=== PATIENT | male | born 1955 | race Caucasian/White ===

== ENCOUNTER → 2019-08-17 13:51 | Outpatient (CLI) | payer OTHER, SELFPAY ==
[2017-02-11 19:06] VITALS: BMI 26.5
[2019-08-18 07:26] LABS: SARS-COV-2 TOTAL ABS Nonreactive (Nonreactive)
== END ==
PROVIDERS: PCP Family Medicine; Referring Provider Otolaryngology; Visit Provider Otolaryngology
DX: R05 Cough (principal)
CPT/HCPCS: 86769; G2023

== ENCOUNTER 2021-09-27 17:19 | Emergency (ER) | payer MEDICARE, SELFPAY ==
[2021-09-27 17:19] VITALS: BP 147/100; PULSE 71; RESP 16; TEMP 36.6; O2SAT 96; BMI 30.8
[2021-09-27 19:39] VITALS: BP 173/103; PULSE 67; RESP 16; O2SAT 99
--- NOTE | 2021-09-27 20:45 | EKG12_ITS ---
Test Reason : DYSRHYTHMIA Blood Pressure : / mmHG Vent. Rate : 056 BPM Atrial Rate : 056 BPM P-R Int : 188 ms QRS Dur : 156 ms QT Int : 478 ms P-R-T Axes : 049 -21 064 degrees QTc Int : 461 ms Sinus bradycardia Left bundle branch block Abnormal ECG Confirmed by FELIX HERNANDEZ, ROSAURA ([id number]), publications editor VANESSA SOUZA ([id number]) on 10/01/2021 7:49:36 AM Referred By: DIO Confirmed By:ROSAURA WASHINGTON MD
[2021-09-27 21:02] VITALS: RESP 16
[2021-09-27 21:04] LABS: Absolute Lymphocyte Count 1.36 X10^3/uL (0.83-4.51); Absolute Neutrophil Count 4.4 X10^3/uL (2.0-7.7); Basophil# 0.08 X10^3/uL; Basophil% 1.3 % (0-1); Eosinophil# 0.04 X10^3/uL; Eosinophils% 0.6 % (0-5); Hematocrit 44.3 % (40-54); Hemoglobin 15.1 g/dL (13.0-16.5); Lymphocyte # 1.36 X10^3/ul (0.83-4.51); Lymphocyte % 21.6 % (19-41); Mean Corp Hgb Conc 34.1 g/dL (32-36); Mean Corpuscular Hgb 31.2 pg (27.0-32.0); Mean Corpuscular Volume 91.5 fL (80-94); Mean Platelet Vol. 8.7 fl (6.2-12.0); Monocyte# 0.39 X10^3/uL; Monocyte% 6.2 % (0-10); NRBC Flagged by Analyzer 0 % (0-5); Neutrophil # 4.39 X10^3/uL (2.7-7.7); Neutrophil % 69.8 % (47-70); Platelet Count 204 K/mm3 (150-450); RBC Distribution Width CV 12.6 % (11.6-14.6); RBC Distribution Width SD 42.6 fl (35.1-43.9); Red Blood Count 4.84 M/mm3 (4.6-6.2); White Blood Count 6.3 K/mm3 (4.4-11.0)
[2021-09-27] MEDS: 0.9% Normal Saline 1,000 ML 1000 ML IV (21:07)
[2021-09-27 21:09] LABS: Mucous, Urine 0 SEEN /hpf (<or=2+); Red Blood Cells-Urine 0 SEEN /hpf (0-5); Squamous Epithelial Cells - UA 0 SEEN /hpf (0-5); White Blood Cells 0 SEEN /hpf (0-5)
[2021-09-27 21:21] LABS: ALB/GLOB Ratio 1.1 RATIO (0.9-2.4); AST(SGOT) 22 U/L (15-37); Alanine Aminotransfer ALT/SGPT 32 U/L (16-61); Alkaline Phosphatase 56 U/L (45-117); Anion Gap 7 (5-15); BUN 12 mg/dL (7-18); BUN/Creat Ratio 13.5 RATIO (10-20); Calcium,Total 9.2 mg/dL (8.5-10.1); Chloride 110 mmol/L (98-107); Creatinine, Serum 0.89 mg/dL (0.70-1.30); EST Glomerular Filtration Rate 91 mL/min (>60); Est Glom Filt Rate - Afr Amer 110 mL/min (>60); Globulin 3.8 g/dL (2.2-4.2); Glucose 110 mg/dL (74-106); Lipase 96 U/L (73-393); Potassium 4.1 mmol/L (3.5-5.1); Protein, Total 7.8 g/dL (6.4-8.2); Sodium Level 140 mmol/L (136-145)
--- NOTE | 2021-09-27 21:25 | RAD_ITS ---
EXAM: XR CHEST, 2 VIEWS CLINICAL INDICATION: cough TECHNIQUE: Frontal and lateral views of the chest. This report was created using [employer] report generation technology. COMPARISON: None. FINDINGS: LUNGS AND PLEURAL SPACES: Unremarkable. No consolidation or edema. No pneumothorax. No effusion. HEART: Unremarkable. Cardiac silhouette not enlarged. MEDIASTINUM: Central airways and mediastinal contour are unremarkable. BONES/JOINTS: Degenerative changes of the acromioclavicular joints. SOFT TISSUES: Unremarkable. VASCULATURE: Atherosclerotic calcifications of the nonenlarged thoracic aortic arch. RAD/Chest PA and Lateral IMPRESSION: No acute disease. Electronically Signed: Gabino Durant MD at 21:38 EDT ,
[2021-09-27 21:27] LABS: Color, Urine Yellow (Yellow); Glucose, Dipstick Normal (Normal); Ketone-Dipstick 15 mg/dl (Negative); Leukocyte Esterase-Dipstick Negative /ul (Negative); Nitrite-Dipstick Negative (Negative); Occult Blood-Urine Negative /ul (Negative); Protein-Dipstick Negative (Negative); Urine Bilirubin Dipstick Negative (Negative); Urine Clarity Clear (Clear); Urine Urobilinogen Normal (Normal)
[2021-09-27 21:35] LABS: Troponin-I HS 5 pg/mL (3.0-78.0)
[2021-09-27 21:53] LABS: Bacteria RARE /hpf (None Seen)
--- NOTE | 2021-09-28 00:15 | ED.RN ---
This RN notified by CT that patient refused CT scan unless he can get his results instantly because I need to get home to eat right now.
[2021-09-28] MEDS: Mag Hydrox/Al Hydrox/Simeth 30 ML UDC PO (00:20)
[2021-09-28 00:31] VITALS: BP 147/100; PULSE 71; RESP 16; O2SAT 96
--- NOTE | 2021-09-28 00:32 | EDS_ITS ---
HPI History of Present Illness Chief Complaint: General Illness Informant: patient Narrative Narrative: Patient is a 65-year-old male with history of acid reflux presenting with abdominal pain. Patient initially developed some flulike symptoms a week ago, felt better and then a couple days ago his symptoms returned. He has been having pain localized just to the right of his umbilicus. He notes it is worse after eating. Pain is more of a discomfort and aching in nature. Is been persistent. He denies associated nausea, vomiting, change in bowel movements or fever. Denies any urinary symptoms. Notes that when he was a teenager he was diagnosed with colonic spasms but states that felt different. Denies associated chest pain, shortness of breath or difficulty breathing. No other complaints at this time. PFSH PFSH Home Medications omeprazole 20 mg capsule,delayed release 20 mg PO DAILY 10/11/13 [History Last Taken Unknown] prednisone 10 mg tablet 5 mg PO DAILY 10/11/13 [History Last Taken Unknown] terazosin 5 mg capsule 5 mg PO QHS 10/11/13 [History Last Taken Unknown] etodolac 300 mg capsule 300 mg PO TIDCM PRN Pain ##30 10/12/13 [Rx Last Taken Unknown] hydrocodone-acetaminophen 5-325mg 5mg-325mg 1 ea PO Q4H PRN PRN Pain #20 tabs 02/11/17 [Rx Last Taken Unknown] Allergy/AdvReac Type Severity Reaction Status Date / Time sulfamethoxazole Allergy Other Verified 09/27/21 17:21 [From Bactrim] trimethoprim [From Bactrim] Allergy Other Verified 09/27/21 17:21 Social History Smoking Status: Former smoker ROS ROS ED Constitutional Constitutional ED: Denies chills or fever(s) Eyes Eyes: Denies blurry vision ENT ENT ED: Denies rhinorrhea or sore throat Cardiovascular Cardiovascular: Denies chest pain or palpitations Respiratory/Chest Respiratory/Chest: Denies cough or dyspnea Gastrointestinal Gastrointestinal: Reports abdominal pain and diarrhea; Denies constipation, nausea or vomiting Genitourinary Genitourinary ED: Denies dysuria or hematuria Musculoskeletal Musculoskeletal: Denies arthralgias or back pain Integumentary Denies rash Neurologic Neurologic: Denies headache(s) Psychiatric Psychiatric: Denies anxiety EXAM Physical Exam Const Vital Signs: 09/27/21 17:19 09/27/21 19:39 09/27/21 19:39 Temperature 97.8 F Temperature Source Temporal Pulse Rate 71 67 Respiratory Rate 16 16 Respiratory Effort Normal Respiratory Pattern Normal Blood Pressure 147/100 H 173/103 H Blood Pressure Mean 115 126 Pulse Ox 96 99 Oxygen Delivery Method Room Air Room Air 09/27/21 21:02 09/28/21 00:31 Temperature Temperature Source Pulse Rate 71 Respiratory Rate 16 16 Respiratory Effort Respiratory Pattern Blood Pressure 147/100 H Blood Pressure Mean Pulse Ox 96 Oxygen Delivery Method Positive well nourished and well developed General Appearance ED: well developed and NAD HEENT Reports dry mucous membranes Mouth ED: Yes dry mucous membranes Mouth: dry mucous membranes Neck supple and no JVD Chest Wall inspection of chest normal and palpation of chest normal Resp normal respiratory effort and clear to auscultation bilaterally Cardio regular rate, regular rhythm and no murmurs GI normal to inspection, nondistended, normoactive bowel sounds and non-tender GI Narrative: Patient points to well-circumscribed 3 cm area just to the right of his umbilicus as the area of his pain however its not reproducible with direct palpation. Palpation: Negative for guarding Back/Spine no CVA tenderness Extremity normal to inspection General Extremety ED: Negative for edema General Extremity: Negative for edema Neuro oriented x3 Motor Exam: Negative for general weakness Psych mental status grossly normal Skin no rashes or lesions noted and no wounds MDM MDM MDM Narrative Medical decision making narrative: Patient evaluated for 1 week of intermittent right-sided abdominal pain as well as some flulike symptoms. Patient appears nontoxic and in no acute distress. Vital signs are significant only for some mild hypertension. COVID test is negative. Patient denies any associated chest pain, shortness of breath or difficulty breathing. Have a low suspicion for referred ACS pain however EKG is obtained. EKG does show sinus bradycardia with a left bundle branch block. Fadi alvarez has progression from nonspecific intraventricular conduction delay with a left axis deviation to a left bundle branch block however he does not have any chest pain and his high since he troponin is normal. Do not think this associated with why he is presenting today. His lab work otherwise is largely normal. CBC and CMP largely unremarkable. Lipase is normal. Urinalysis does show 15 ketones consistent with some dehydration and patient's report of not eating today. Patient is given IV fluids and then a GI cocktail. I did discuss that given his localized area of pain we could get a CT of his abdomen and pelvis to further evaluate for an area of diverticulitis or other acute intra- abdominal process. Patient initially agreed however due to wait time decided then that he would like to just go home. We will follow-up with primary care doctor and return if his symptoms worsen. Patient is counseled return precautions. He verbalizes agreement understand with this plan. He ambulates easily out of the emergency room. Lab Data Attestation: I reviewed the patient's lab results. Labs: Laboratory Results - last 24 hr 09/27/21 09/27/21 09/27/21 20:59 20:59 20:59 WBC 6.3 RBC 4.84 Hgb 15.1 Hct 44.3 MCV 91.5 MCH 31.2 MCHC 34.1 RDW Std Deviation 42.6 RDW Coeff of Pancho 12.6 Plt Count 204 MPV 8.7 Immature Gran % (Auto) 0.500 Neut % (Auto) 69.8 Lymph % (Auto) 21.6 [place] % (Auto) 6.2 Eos % (Auto) 0.6 Baso % (Auto) 1.3 H Absolute Neuts (auto) 4.4 Absolute Lymphs (auto) 1.36 Nucleated RBC % 0 Sodium 140 Potassium 4.1 Chloride 110 H Carbon Dioxide 23.0 Anion Gap 7 BUN 12 Creatinine 0.89 Estim Creat Clear Calc 84.30 Est GFR (MDRD) Af Amer 110 Est GFR (MDRD) Non-Af 91 BUN/Creatinine Ratio 13.5 Glucose 110 H Calcium 9.2 Total Bilirubin 0.60 AST 22 ALT 32 Alkaline Phosphatase 56 Troponin I High Sens 5 Total Protein 7.8 Albumin 4.0 Globulin 3.8 Albumin/Globulin Ratio 1.1 Lipase 96 Urine Color Urine Clarity Urine pH Ur Specific [place] Urine Protein Urine Glucose (UA) Urine Ketones Urine Occult Blood Urine Nitrite Urine Bilirubin Urine Urobilinogen Ur Leukocyte Esterase Urine RBC Urine WBC Ur Squamous Epith Cells Urine Bacteria Urine Mucus 09/27/21 21:01 WBC RBC Hgb Hct MCV MCH MCHC RDW Std Deviation RDW Coeff of [place]anch[place] Plt Count MPV Immature Gran % (Auto) Neut % (Auto) Lymph % (Auto) [place] % (Auto) Eos % (Auto) Baso % (Auto) Absolute Neuts (auto) Absolute Lymphs (auto) Nucleated RBC % Sodium Potassium Chloride Carbon Dioxide Anion Gap BUN Creatinine Estim Creat Clear Calc Est GFR (MDRD) Af Amer Est GFR (MDRD) Non-Af BUN/Creatinine Ratio Glucose Calcium Total Bilirubin AST ALT Alkaline Phosphatase Troponin I High Sens Total Protein Albumin Globulin Albumin/Globulin Ratio Lipase Urine Color Yellow Urine Clarity Clear Urine pH 6.0 Ur Specific [place] 1.010 Urine Protein Negative Urine Glucose (UA) Normal Urine Ketones 15 H Urine Occult Blood Negative Urine Nitrite Negative Urine Bilirubin Negative Urine Urobilinogen Normal Ur Leukocyte Esterase Negative Urine RBC 0 SEEN Urine WBC 0 SEEN Ur Squamous Epith Cells 0 SEEN Urine Bacteria RARE Urine Mucus 0 SEEN Rhythm Strip Rhythm Strip: Sinus Rhythm Rate: 71 Ectopy: None EKG Initial EKG: Attestation: I personally reviewed and interpreted this EKG as follows: Interpretation: Sinus Bradycardia, LBBB and Non-Specific ST Changes Discharge Plan Triage Chief Complaint: General Illness ED Provider: Linda Edwards Dx/Rx/DC Orders Clinical Impression: Abdominal pain in male, Flu-like symptoms, Acute dehydration Instructions: ED Abdominal Pain Unkn Cause Male... Prescriptions: No Action terazosin 5 MG capsule 5 mg PO QHS prednisone 10 MG tablet 5 mg PO DAILY Label Comments: omeprazole 20 MG Capsule.Dr 20 mg PO DAILY Label Comments: etodolac 300 MG capsule 300 mg PO TIDCM PRN (Reason: Pain) Qty: 30 0RF hydrocodone-acetaminophen 1 EACH tablet 1 ea PO Q4H PRN PRN (Reason: Pain) Qty: 20 0RF Rx Instructions: Primary Care Provider: Lamberto Marcano Referrals: Lamberto Marcano MD [Primary Care Provider] - Disposition Disposition: Home, Self Care Discharge Date/Time: 09/28/21 00:40
== END 2021-09-28 00:40 | disposition home or self-care (01) ==
PROVIDERS: Emergency Provider Emergency Medicine; PCP Family Medicine; Visit Provider Emergency Medicine
DX: R10.9 Unspecified abdominal pain (principal); E86.0 Dehydration; I10 Essential (primary) hypertension; K21.9 Gastro-esophageal reflux disease without esophagitis; Z79.899 Other long term (current) drug therapy; Z87.891 Personal history of nicotine dependence
CPT/HCPCS: 71046; 80053; 81001; 83690; 84484; 85025; 87428; 93005; 96360; 96361; 99283; J7030; A4216

== ENCOUNTER → 2022-03-27 | Outpatient (CLI) | payer MEDICARE, SELFPAY ==
[2022-03-27 15:29] LABS: Lipase 103 U/L (73-393)
== END | disposition home or self-care (01) ==
PROVIDERS: PCP Family Medicine; Referring Provider Physician Assistant; Visit Provider Physician Assistant
DX: R10.9 Unspecified abdominal pain (principal)
CPT/HCPCS: 83690

== ENCOUNTER 2024-07-16 19:30 | Emergency (ER) | payer MEDICARE, SELFPAY ==
[2024-07-16 19:31] VITALS: BP 170/96; PULSE 93; RESP 22; TEMP 36.3; O2SAT 96; BMI 37.3
--- NOTE | 2024-07-16 19:40 | EX.ED.DYSGE1 ---
HPI History of Present Illness Chief Complaint: Med Refill PFSH PFS Home Medications ?Medication ?Instructions ?Recorded ?Last Taken ?Type omeprazole 20 mg capsule,delayed 20 mg PO DAILY 10/11/13 Unknown History release prednisone 10 mg tablet 5 mg PO DAILY 10/11/13 Unknown History terazosin 5 mg capsule 5 mg PO QHS 10/11/13 Unknown History etodolac 300 mg capsule 300 mg PO TIDCM PRN Pain ##30 10/12/13 Unknown Rx hydrocodone-acetaminophen 5-325mg 1 ea PO Q4H PRN PRN Pain #20 tabs 02/11/17 Unknown Rx 5mg-325mg prednisone 10 mg tablet 10 mg PO DAILY 30 days #30 TABLETS 07/16/24 Unknown Rx Allergy/AdvReac Type Severity Reaction Status Date / Time sulfamethoxazole (From Allergy Other Verified 07/16/24 19:31 Bactrim) trimethoprim (From Bactrim) Allergy Other Verified 07/16/24 19:31 Social History Smoking Status: Former smoker EXAM Physical Exam Const Vital Signs: 07/16/24 19:31 Temperature 97.4 F L Temperature Source Temporal Pulse Rate 93 Respiratory Rate 22 H Blood Pressure 170/96 H Blood Pressure Mean 120 Pulse Ox 96 Oxygen Delivery Method [place] [facility] [place] Medical decision making narrative: HISTORY OF PRESENT ILLNESS: Chief complaint: Med refill [id number]-year-old male presents with concern for med refill. States he is on 5 mg prednisone daily and he ran out today REVIEW OF SYSTEMS: Review of system otherwise negative as explicitly stated in HPI PHYSICAL EXAM: Nursing triage notes reviewed, Vital signs reviewed Constitutional: please see mdm Lungs: Clear to auscultation, No wheezing or rales. No increased work of breathing, no conversational dyspnea, no accessory muscle use, no nasal flaring. No respiratory distress noted Heart: Regular rate and rhythm, No murmurs, No rubs and No gallops, 2+ distal pulses (radial, femoral, posterior tibial) in all extremities Abdomen: Soft, there is no tenderness, rigidity, rebound or guarding, no obvious peritoneal signs, no palpable pulsatile abdominal masses, no auscultated abdominal brui Neuro: No new focal neurological deficits, cranial nerves II through XII intact, MEDICAL DECISION MAKING: Chief Complaint: please see HPI External records reviewed: Reviewed prior medications Factors affecting care: arthritis MDM Narrative: Patient was initially hemodynamically stable, afebrile and nontoxic-appearing. Prednisone given here and refill provided. The patient and/or family, caregivers express understanding. The patient and/or family, caregivers agrees with the plan. Shared decision making: I will have a discussion with the patient and or visitors regarding risk/benefits of further testing or admission. They will be made aware of of the risk/benefits inherent in this decision they will be given the opportunity to voice understanding. Total critical care time today provided was at least 0 minutes. This excludes separately billable procedures. Critical care time (if documented) is secondary to the patient having high probability of clinically significant/life threatening deterioration in the patient's condition which required my urgent intervention. Impression: 1. Medication refill Dispo: discharge This note was generated with [employer] dictation software. It may contain incorrect words, spelling, and punctuation that were not noted in review of the chart prior to signing. Discharge Plan Triage Chief Complaint: Med Refill ED Provider: Hima Mosher Dx/Rx/DC Orders Prescriptions: New prednisone 10 mg tablet 10 mg PO DAILY 30 Days Qty: 30 3RF No Action terazosin 5 MG capsule 5 mg PO QHS prednisone 10 MG tablet 5 mg PO DAILY Patient Comments: omeprazole 20 MG capsule,delayed release(DR/EC) 20 mg PO DAILY Patient Comments: etodolac 300 MG capsule 300 mg PO TIDCM PRN (Reason: Pain) Qty: 30 0RF hydrocodone-acetaminophen 1 EACH tablet 1 ea PO Q4H PRN PRN (Reason: Pain) Qty: 20 0RF Rx Instructions: Primary Care Provider: Lamberto Marcano Referrals: Lamberto Marcano MD [Primary Care Provider] - Activity Restrictions/Additional Instructions: Thank you for trusting us with your care today! Please take prednisone as prescribed Please take Tylenol (2 pills, 650 mg), ibuprofen (2 pills, 400 mg) every 6 hours as needed for pain and fever control. Please return to the emergency department if your symptoms change or worsen. Please follow with your primary care physician for further outpatient evaluation and management. Print Language: Thai Disposition Disposition: Home, Self Care
--- OUTSIDE RECORDS SUMMARY | 2024-07-16 19:57 | XMS RPT_ITS | CCD ---
Author Organization [facility] Care Team Providers Care Dowel Maker Name Role Phone Adelita Marcano MD Primary Care Provider Torey LABEL SEWER, Colleen Referring Unavailable Adelita Marcano Primary Care Unavailable Torey LABEL SEWER, Colleen Attending Unavailable Adelita Marcano Primary Care Unavailable Linda Edwards Attending Unavailable Adelita Marcano MD Primary Care Provider Adelita Marcano MD Primary Care Provider Tannhof SUPERVISOR DIE CASTING.Laurie BARRAZA Unavailable Emanuel SUPERVISOR DIE CASTING.Tristen BARRAZA Unavailable Tannhof SUPERVISOR DIE CASTING.Laurie BARRAZA Unavailable Unavail able LAURIE ESTEVES Attending Unavailable ADELITA MARCANO Primary Care Unavailable ADELITA MARCANO Attending Unavailable ADELITA MARCANO Primary Care Unavailable ADELITA MARCANO Primary Care Unavailable LAURIE ESTEVES Attending Unavailable ADELITA MARCANO Primary Care Unavailable LAURIE ESTEVES Referring Unavailable ADELITA MARCANO Primary Care Unavailable CINDY LLOYD Attending Unavailable ADELITA MARCANO Primary Care Unavailable Allergies Allergy Classification Reported Allergen(s) Allergy Type Date of Onset Reaction(s) Facility (20 sources) meloxicam; Translations: [MELOXICAM] Drug Allergy 8 Other: See Comments [facility] (20 sources) Sulfamethoxazole; Translations: [SULFAMETHOXAZOLE] Drug Allergy 4 Other: See Comments [facility] Work Phone: (20 sources) Trimethoprim; Translations: [TRIMETHOPRIM] Drug Allergy 2 Other: See Comments [facility] (20 sources) Niacin; Translations: [NIACIN] Drug Allergy 3 Intolerance [facility] (1 source) Sulfamethoxazole Drug Allergy 2 [facility] (1 source) Trimethoprim Drug Allergy 2 [facility] Medications Current Medications Medication Drug Class(es) Dates Sig (Normalized) Sig (Original) acetaminophen 325 mg / HYDROcodone bitartrate 5 mg oral tablet (2 sources) Opioid Agonist Start: 02-11-2017 Hydrocodone-Acetam inophen Active 1 EACH PO EVERY 4 HOURS NEEDED February 11, 2017 9:16pm ascorbic acid 1000 mg oral tablet (20 sources) Vitamin C Start: 04-07-2016 take 1 tablet by mouth once daily Ascorbic Acid (VITAMIN C) 1,000 mg tablet Take 1 tablet by mouth once daily. 0 04/07/2016 Active Comment on above: Take 1 tablet by alaina th once daily. atorvastatin 20 mg oral tablet (20 sources) HMG-CoA Reductase Inhibitor Start: 01-26-2023 End: 02-18-2024 take 1 tablet by mouth once daily at bedtime for hyperlipidemia atorvastatin (LIPITOR) 20 mg tablet Indications: Hyperlipidemia, mixed take 1 tablet by mouth once daily at bedtime for cholesterol 90 tablet 3 02/19/2024 Active Start: 02-07-2021 End: 02-14-2022 take 1 tablet by mouth once daily at bedtime for hyperlipidemia atorvastatin (LIPITOR) 20 mg tablet Indications: Hyperlipidemia, mixed take 1 tablet by mouth once daily at bedtime for cholesterol 30 tablet 5 02/14/2022 Active Comment on above: Take 1 tablet by alaina th daily at bedtime. For cholesterol. take 1 tablet by alaina th once daily at bedtime for cholesterol Zwwbuyz-Tmtxdwfno-Qvr c tab (20 sources) Start: 04-07-19 17 Calcium-Magnesium- Zinc tab Calcium 1200 mg once daily. Magnesium 500 mg once daily Zinc - 50 mg once daily. 0 04/07/2016 Active Comment on above: Calcium 1200 mg once daily. Magnesium 500 mg once daily Zinc - 50 mg once daily. dicyclomine hydrochloride 20 mg oral tablet (2 sources) Anticholinergic Start: 03-27-19 End: 04-03-19 take 1 tablet by mouth every six hours as needed dicyclomine (BENTYL) 20 mg tablet Take 1 tablet by mouth four times daily as needed for up to 7 days. 20 tablet 0 03/27/2022 04/03/2022 Active Comment on above: Take 1 tablet by [facility] four times daily as needed for up to 7 days. etodolac 300 mg oral capsule (2 sources) Nonsteroidal Anti-inflammatory Drug Start: 10-13-19 take 300 mg by mouth three times daily at mealtime Etodolac Active 300 MG PO 3 TIMES DAILY WITH MEALS October 11, 2013 11:00pm omeprazole 40 mg delayed release oral capsule (20 sources) Proton Pump Inhibitor Start: 01-27-20 End: 02-17-19 take 1 capsule by mouth once daily omeprazole (PRILOSEC) 40 mg capsule Indications: Right sided abdominal pain Take 1 capsule by mouth once daily. 90 capsule 3 02/19/2024 Active Start: 10-07-2021 End: 02-24-2022 take 1 capsule by mouth once daily omeprazole (PRILOSEC) 40 mg capsule Indications: Right sided abdominal pain Take 1 capsule by mouth once daily. 90 capsule 3 02/24/2022 Active Start: 10-11-2013 End: 04-29-2021 take 1 capsule by mouth once daily before mealtime omeprazole (PRILOSEC) 20 mg capsule Indications: Gastroesophageal reflux disease without esophagitis Take 1 capsule by mouth once daily. 1/2 HR BEFORE MEAL. 30 capsule 11 03/25/2019 04/30/2020 Discontinued Comment on above: take 1 capsule by [facility] once daily 1/2 AN HOUR BEFORE MEAL Take 1 capsule by [facility] once daily. 1/2 HR BEFORE MEAL. Take 1 capsule by [facility] once daily. 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 60 tablet 11 12/27/2020 Active Start: 10-11-2013 take 5 mg by mouth once daily Prednisone Active 5 MG PO DAILY October 10, 2013 11:00pm Comment on above: Take 1-2 tablets by mouth once daily. terazosin 10 mg oral capsule (20 sources) alpha-Adrenergic Tisha Start: 01-26-2023 End: 02-18-2024 take 1 capsule by mouth once daily Terazosin HCl (HYTRIN) 10 mg capsule Indications: BPH with urinary obstruction Take 1 capsule by mouth once daily. 90 capsule 3 02/19/2024 Active Start: 03-07-2021 End: 12-10-2021 take 1 capsule by mouth once daily Terazosin HCl (HYTRIN) 10 mg capsule Indications: BPH with urinary obstruction take 1 capsule by mouth once daily 90 capsule 3 12/10/2021 Active Start: 03-25-2019 End: 03-20-2020 take 1 capsule by mouth once daily Terazosin HCl (HYTRIN) 10 mg capsule Indications: BPH with urinary obstruction Take 1 capsule by mouth once daily. 90 capsule 3 03/25/2019 03/20/2020 Discontinued Start: 10-11-2013 take 5 mg by mouth at bedtime Terazosin Active 5 MG PO AT BEDTIME October 10, 2013 11:00pm Comment on above: Take 1 capsule by mo ut once daily. take 1 capsule by mo ut once daily valACYclovir 500 mg oral tablet (9 sources) Herpesvirus Nucleoside Analog DNA Polymerase Inhibitor, Herpes Simplex Virus Nucleoside Analog DNA Polymerase Inhibitor, Herpes Zoster Virus Nucleoside Analog DNA Polymerase Inhibitor Start: 5 End: 5 take 1 tablet by mouth twice daily valACYclovir (VALTREX) 500 mg tablet Indications: Herpes simplex infection of penis Take 1 tablet by mouth two times a day. 6 tablet 5 02/17/2024 08/15/2024 Active Start: 01-22-2024 End: 01-25-2024 take 1 tablet by mouth twice daily valACYclovir (VALTREX) 500 mg tablet Indications: Herpes simplex infection of penis Take 1 tablet by mouth two times a day for 3 days. 6 tablet 5 01/22/2024 01/25/2024 Active Start: 11-08-2021 End: 11-11-2021 take 1 tablet by mouth twice daily valACYclovir (VALTREX) 500 mg tablet Indications: Herpes simplex infection of penis Take 1 tablet by mouth twice daily for 3 days. 6 tablet 5 11/08/2021 11/11/2021 Active Comment on above: Take 1 tablet by alaina th twice daily for 3 days. vitamin b12 1 mg extended release oral tablet (20 sources) Vitamin B12 Start: 04-07-2016 take 1 ug by mouth once daily Cyanocobalamin (VITAMIN B-12) 1,000 mcg TbER Take 1 mcg by mouth once daily. 0 04/07/2016 Active Comment on above: Take 1 mcg by mouth once daily. vitamin b6 100 mg oral tablet (20 sources) Start: 04-07-2016 take 1 tablet by mouth once daily pyridoxine, vitamin B6, (VITAMIN B-6) 100 mg tablet Take 1 tablet by mouth once daily. 0 04/07/2016 Active Comment on above: Take 1 tablet by alaina th once daily. Completed/Discontinued Medications Medication Drug Class(es) Dates Sig (Normalized) Sig (Original) Aspirin / Caffeine (10 sources) Platelet Aggregation Inhibitor, Nonsteroidal Anti-inflammatory Drug, Central Nervous System Stimulant, Methylxanthine End: 02-24-2022 ASPIRIN/CAFFEINE (ANACIN ORAL) Take by mouth as needed. 02/24/2022 Discontinued End: 02-24-2022 ASPIRIN/CAFFEINE (ANACIN ORA L) Take by mouth as needed. 0 02/24/2022 Discontinued ASPIRIN/CAFFEINE (ANACIN ORAL) Take by mouth as needed. 0 Active Comment on above: Take by mouth as nee ded. cholecalciferol 0.025 mg oral capsule (10 sources) Vitamin D Start: 017 End: 023 take 1 capsule by mouth once daily Cholecalciferol, Vitamin D3, 1,000 unit cap Take 1 capsule by mouth once daily. 0 04/07/2016 02/24/2022 Discontinued Comment on above: Take 1 capsule by mo [facility] once daily. diclofenac sodium 0.01 mg/mg topical gel (3 sources) Nonsteroidal Anti-inflammatory Drug Start: apply 4 g topically four times daily diclofenac (VOLTAREN ARTHRITIS PAIN) 1 % topical gel Indications: Neck strain, initial encounter Apply 4 g to affected area four times daily. 200 g 3 03/07/2021 Active Comment on above: Apply 4 g to affecte d area four times daily. fluticasone propionate 0.05 mg/actuat metered dose nasal spray (3 sources) Corticosteroid Start: take 2 spray(s) by mouth twice daily fluticasone (FLONASE) 50 mcg/actuation nasal spray Indications: Sore throat Use 2 Sprays in each nostril twice daily. Rinse mouth after use. 1 Each 6 03/07/2021 Active Comment on above: Use 2 Sprays in each nostril twice daily. Rinse mouth after use. ondansetron 4 mg disintegrating oral tablet (2 sources) Serotonin-3 Receptor Antagonist Start: take 1 tablet by mouth every eight hours as needed ondansetron orally disintegrating (ZOFRAN ODT) 4 mg disintegrating tablet Take 1 tablet by mouth every 8 hours as needed. 12 tablet 0 03/27/2022 Active Comment on above: Take 1 tablet by alaina th every 8 hours as needed. sucralfate 1000 mg oral tablet (6 sources) Aluminum Complex Start: End: take 1 tablet by mouth at bedtime sucralfate (CARAFATE) 1 gram tablet Indications: Right sided abdominal pain Take 1 tablet by mouth before meals and at bedtime. 120 tablet 0 10/07/2021 02/24/2022 Discontinued Comment on above: Take 1 tablet by alaina th before meals and at bedtime. Problems Active Problems Problem Classification Problem Date Documented Da te Episodic/Chronic Disorders of lipid metabolism (20 sources) Hypertriglyceridemia; Translations: [Pure hyperglyceridemia] Onset: 6 09-17-2009 Chronic Esophageal disorders (20 sources) Gastroesophageal reflux disease without esophagitis; Translations: [Gastro-esophageal reflux disease without esophagitis] Onset: 1 Chronic Fluid and electrolyte disorders (2 sources) Dehydration; Translations: [Dehydration] 10-06-2021 Episodic Hepatitis (20 sources) Hepatitis C carrier; Translations: [Chronic viral hepatitis C] Onset: 6 01-09-2006 Chronic Hyperplasia of prostate (20 sources) Benign prostatic hyperplasia; Translations: [Benign prostatic hyperplasia without lower urinary tract symptoms] Onset: 6 10-04-2015 Chronic Joint disorders and dislocations; trauma-related (20 sources) Chondromalacia of patella; Translations: [Chondromalacia patellae, unspecified knee] Onset: 7 03-31-2006 Chronic Malaise and fatigue (1 source) Fatigue; Translations: [Other fatigue] 08-18-2023 Episodic Noninfectious gastroenteritis (1 source) Gastroenteritis; Translations: [Noninfective gastroenteritis and colitis, unspecified] Episodic Other ear and sense organ disorders (1 source) Impacted cerumen in left ear; Translations: [Impacted cerumen, left ear] Episodic Other ear and sense organ disorders (1 source) Bilateral tinnitus; Translations: [Tinnitus, bilateral] Episodic Other endocrine disorders (20 sources) Male hypogonadism; Translations: [Testicular hypofunction] Onset: 0 06-29-2010 Chronic Other gastrointestinal disorders (20 sources) Diarrhea; Translations: [Diarrhea, unspecified] 05-06-2006 Episodic Other gastrointestinal disorders (2 sources) Abdominal bloating; Translations: [Abdominal distension (gaseous)] Episodic Other hereditary and degenerative nervous system conditions (2 sources) Impaired cognition; Translations: [Mild cognitive impairment, so stated] 04-10-2023 Chronic Other hereditary and degenerative nervous system conditions (1 source) Mild cognitive impairment, so stated; Translations: [Cognitive impairment, mild, so stated] Onset: Chronic Other liver diseases (20 sources) Chronic liver disease; Translations: [Liver disease, unspecified] Onset: 7 06-10-2006 Chronic Other nervous system disorders (20 sources) Carpal tunnel syndrome; Translations: [Carpal tunnel syndrome, unspecified upper limb] Onset: 6 07-01-2005 Chronic Other nervous system disorders (20 sources) Lesion of ulnar nerve; Translations: [Lesion of ulnar nerve, unspecified upper limb] Onset: 6 07-01-2005 Chronic Other nervous system disorders (2 sources) Tremor; Translations: [Tremor, unspecified] 08-20-2023 Episodic Other non-traumatic joint disorders (1 source) Pain in right knee; Translations: [Pain in joint, lower leg] 01-18-2020 Episodic Other screening for suspected conditions (not mental disorders or infectious disease) (1 source) Raised prostate specific antigen; Translations: [Elevated prostate specific antigen [PSA]] 05-03-2024 Episodic Other skin disorders (3 sources) Skin lesion; Translations: [Disorder of the skin and subcutaneous tissue, unspecified] 04-23-2023 Episodic Other skin disorders (1 source) Excessive sweating; Translations: [Generalized hyperhidrosis] 08-21-2023 Episodic Other upper respiratory disease (20 sources) Chronic rhinitis; Translations: [Chronic rhinitis] Onset: 7 07-16-2006 Chronic Residual codes; unclassified (1 source) Forgetful; Translations: [Other general symptoms and signs] Episodic Residual codes; unclassified (2 sources) Influenza-like symptoms; Translations: [Other general symptoms and signs] 10-06-2021 Episodic Residual codes; unclassified (1 source) Amnesia; Translations: [Other amnesia] 04-10-2023 Episodic Residual codes; unclassified (1 source) Memory impairment; Translations: [Other amnesia] 05-03-2024 Episodic Rheumatoid arthritis and related disease (20 sources) Rheumatoid factor positive rheumatoid arthritis; Translations: [Rheumatoid arthritis with rheumatoid factor, unspecified] Onset: 4 07-23-2013 Chronic Substance-related disorders (20 sources) Nondependent mixed drug abuse; Translations: [Other psychoactive substance abuse, uncomplicated] 08-14-2005 Chronic Viral infection (20 sources) Genital herpes simplex; Translations: [Herpesviral infection of urogenital system, unspecified] Onset: 5 06-22-2014 Chronic Past or Other Problems Problem Classification Problem Date Documented Da te Episodic/Chronic Abdominal pain (11 sources) Abdominal pain; Translations: [Unspecified abdominal pain] Onset: 04-05-2022 Episodic Diabetes mellitus without complication (3 sources) Increased glucose level; Translations: [Other abnormal glucose] Onset: 08-20-2023 08-20-2023 Episodic Immunizations and screening for infectious disease (5 sources) Patient encounter status; Translations: [Encounter for immunization] Onset: 10-26-2023 10-26-2023 Episodic Other diseases of kidney and ureters (1 source) Other obstructive and reflux uropathy; Translations: [BPH with urinary obstruction] Onset: 02-19-2024 Episodic Other nervous system disorders (1 source) Tremor, unspecified; Translations: [Shakiness] Onset: 08-20-2023 Episodic Other skin disorders (1 source) Disorder of the skin and subcutaneous tissue, unspecified; Translations: [Skin lesions] Onset: 02-19-2024 Episodic Residual codes; unclassified (1 source) Other amnesia; Translations: [Memory changes] Onset: 02-19-2024 Episodic Results Test Name Value Interpretation Reference Range Facility [facility] 05-23-2024 [facility] Telephone (NIQ) -------- AARON ADLER ([id number]) 1955 M Date Time Provider Department 05/23/24 NEUROLOGY PROVIDER [facility] During your visit today, we recorded the following information about you: Jaki Wells 05/23/2024 8:33 AM Signed Called patient about scheduling consult to neurology, per referral. pt is already est. last seen in 2023, provided the number to the [place] office. called [phone] Allergies As of Date: 05/23/2024 Noted Allergy Reaction MELOXICAM 10/07/2017 14 - Other: See Comments Comments: Yuliet BACTRIM (SULFAMETHOXAZOLE) 08/03/2013 14 - Other: See Comments Comments: thrush NIACIN 03/28/2022 5 - Intolerance Comments: tachycardia TRIMETHOPRIM 09/27/2021 14 - Other: See Comments Date Reviewed: 05/03/2024 Reviewed by: Glendy Escalera MA - Fully Assessed Reason for Visit: Appointment [186] Cmt: Called patient about scheduling consult to neurology, per referral. pt is already est. last seen in 2023, provided the number to the [place] office. called [phone] Prescriptions as of 05/23/2024 - predniSONE (DELTASONE) 10 mg tablet Take 0.5-1 tablets by mouth once daily. - Terazosin HCl (HYTRIN) 10 mg capsule Take 1 capsule by mouth once daily. - atorvastatin (LIPITOR) 20 mg tablet take 1 tablet by mouth once daily at bedtime for cholesterol - omeprazole (PRILOSEC) 40 mg capsule Take 1 capsule by mouth once daily. - valACYclovir (VALTREX) 500 mg tablet Take 1 tablet by mouth two times a day. - Kzgqfqo-Dpvktgbsp-Eeua tab Calcium 1200 mg once daily. Magnesium 500 mg once daily Zinc - 50 mg once daily. - Ascorbic Acid (VITAMIN C) 1,000 mg tablet Take 1 tablet by mouth once daily. - Cyanocobalamin (VITAMIN B-12) 1,000 mcg TbER Take 1 mcg by mouth once daily. - pyridoxine, vitamin B6, (VITAMIN B-6) 100 mg tablet Take 1 tablet by mouth once daily. Problem List As Of Date 05/23/2024 Noted Resolved Hypertriglyceridemia [E78.1] 05/07/2005 CARPAL TUNNEL SYNDROME [G56.00] 07/01/2005 ULNAR NERVE LESION [G56.20] 07/01/2005 DRUG ABUSE NEC-UNSPEC [F19.10] HEPATITIS C CARRIER [B18.2] 01/09/2006 CHONDROMALACIA PATELLAE [M22.40] 03/31/2006 DIARRHEA NOS [R19.7] CHRONIC LIVER DIS NOS [K76.9] 06/10/2006 CHRONIC RHINITIS [J31.0] 07/16/2006 Hypogonadism male [E29.1] 03/19/2009 Rheumatoid arthritis with rheumatoid factor (HC*07/23/2013 Genital herpes simplex [A60.00] 06/22/2014 Benign prostatic hyperplasia [N40.0] 10/04/2015 GERD without esophagitis [K21.9] 02/06/2021 Encounter Status:Closed by JAKI WELLS on 05/23/24 Normal [facility] CNOVon 05-03-2024 CNOV Office Visit (FAMPWS ) -------- AARON ADLER ([id number]) 1955 M Date Time Provider Department 05/03/24 3:20 PM ADELITA MARCANO During your visit today, we recorded the following information about you: Pulse Respiration Blood pressure Weight 76/minute 18/minute 130/84 119.4 kg Adelita Marcano MD 05/03/2024 5:10 PM Signed Chief Complaint Patient presents with: F/U 6 Month HPI Aaron Adler is a 68 year old male who presents here today for 6 month follow up. No bowel or stomach issues. Has BPH, urinating ok. Denies nocturia. Stable on Terazosin 10 mg once daily. GERD: Controlled with Prilosec 40 mg daily. Lipid: Taking Lipitor 20 mg daily. Tolerating well, no myalgia or gi upset. States he tries to watch his diet. Admits to not exercising enough. Has gained weight, was 214 lbs in 2021, now 263 lbs. RA: Does not follow with Rheum. Taking Prednisone 5 mg, 2 tabs po once daily. Asking to change pill to 10 mg dosage. Has previously dosed himself taking 1-2 tabs, but now taking 2 tabs. He feels comfortable on this regimen, does not want to change, feels that he tolerates it well and it controls his symptoms. His blood sugars have been OK; bone density in 2023 was normal. Does not want to see Rheum. Memory: Was seen by Dr. El; given diagnosis of MCI. Bill cannot tell if he is much worse or not. No problems with getting lost. Skin lesions on right shoulder and right cheek;l he was referred to Derm in Feb but apparently this was never done. HM - Denies having Adv Dir/Living Will. Agreeable to Covid vaccine. Depression/Anxiety screening completed, negative. RSV vaccine through Pharmacy. Received 1 of 2 Shingles. Past medical history, appointments, medications, allergies reviewed. Previous Medical History PAST MEDICAL HISTORY Diagnosis Date Arrhythmia Arthralgia Diarrhea Epistaxis Headache(784.0) Hyperlipidemia Mental disorder Mouth sores Other, mixed, or unspecified nondependent drug abuse, unspecified hx heroin addiction PMH - PAST MEDICAL HISTORY OF arthritis S/P ablation operation for arrhythmia 1999 Unspecified constipation Previous Surgical History PAST SURGICAL HISTORY Procedure Laterality Date COLONOSCOPY FLX DX W/COLLJ SPEC WHEN PFRMD 08/20/2006 Colonoscopy NEUROPLASTY AND/TRANSPOS MEDIAN NRV CARPAL TUNNE 08/07/2005 Carpal tunnel decomp Left PAST SURGICAL HISTORY OF Right 1985 foot surgery/ bone removal d/t infection UNLISTED CARDIAC SURG PROCEDURE 1999 cathetarization for tachycardia Family History FAMILY HISTORY Problem Relation Age of Onset Diabetes Mother non insulin dependent Blood Disease Mother 84 multiple myeloma None Father Patient Allergies ALLERGIES Allergen Reactions Meloxicam Other: See Comments Groggy Bactrim [Sulfametho* Other: See Comments thrush Niacin Intolerance tachycardia Trimethoprim Other: See Comments Current Medications Current Outpatient Medications on File Prior to Visit Medication Sig Terazosin HCl (HYTRIN) 10 mg capsule Take 1 capsule by mouth once daily. atorvastatin (LIPITOR) 20 mg tablet take 1 tablet by mouth once daily at bedtime for cholesterol omeprazole (PRILOSEC) 40 mg capsule Take 1 capsule by mouth once daily. valACYclovir (VALTREX) 500 mg tablet Take 1 tablet by mouth two times a day. predniSONE (DELTASONE) 5 mg tablet Take 1-2 tablets by mouth once daily. Ezjpuzz-Mtaeniqjl-Zhgr tab Calcium 1200 mg once daily. Magnesium 500 mg once daily Zinc - 50 mg once daily. Ascorbic Acid (VITAMIN C) 1,000 mg tablet Take 1 tablet by mouth once daily. Cyanocobalamin (VITAMIN B-12) 1,000 mcg TbER Take 1 mcg by mouth once daily. pyridoxine, vitamin B6, (VITAMIN B-6) 100 mg tablet Take 1 tablet by mouth once daily. No current facility-administered medications on file prior to visit. Social History Social History Tobacco Use Smoking status: Former Smokeless tobacco: Never Tobacco comments: quit 15 years ago Substance Use Topics Alcohol use: No Comment: quit 3 years ago Drug use: Yes Comment: former heroin addict EXAM: BP 130/84 (BP Site: Left Arm, BP Position: Sitting, BP Cuff Size: Large Adult) Pulse 76 Resp 18 Wt 119.4 kg (263 lb 3.7 oz) BMI 39.21 kg/m? General Appearance: Well appearing, alert, in no acute distress, well-hydrated, well nourished.. Skin: dark, irregular lesion right shoulder, tiago keratosis right cheek. Lungs: Lungs clear to auscultation. No wheezing, rhonchi, rales.. Heart: RRR without murmur, gallop, or rubs. No ectopy. Extremities: hands: mild swelling left hand. Health Maintenance List Abdominal Aortic Aneurysm Screening Never done Depression Screening Never done Anxiety Screening Never done Hepatitis A Vaccine(1 of 2 - Risk 2-dose series) Never done Hepatitis B Vaccine(1 of 3 - Risk 3-dose series) Never done RSV V (more content not included)... Normal [facility] MADINon 03-08-2024 CNPN Telephone (4CQ) -------- AARON ADLER ([id number]) 1955 Date Time Provider Department 03/08/24 LAURIE ESTEVES 4CQ During your visit today, we recorded the following information about you: Ashanti Dubose 03/08/2024 3:21 PM Signed Per patient please fax dermatology referral to Glendy Olson MA 03/08/2024 4:19 PM Signed Referral paperwork has been faxed to Sunil Fontenot at [phone]. Glendy Escalera MA Allergies As of Date: 03/08/2024 Noted Allergy Reaction MELOXICAM 10/07/2017 14 - Other: See Comments Comments: Groggy BACTRIM (SULFAMETHOXAZOLE) 08/03/2013 14 - Other: See Comments Comments: thrush NIACIN 03/28/2022 5 - Intolerance Comments: tachycardia TRIMETHOPRIM 09/27/2021 14 - Other: See Comments Date Reviewed: 02/19/2024 Reviewed by: Geri Phoenix LPN - Fully Assessed Reason for Visit: Orders [681] Prescriptions as of 03/08/2024 - Terazosin HCl (HYTRIN) 10 mg capsule Take 1 capsule by mouth once daily. - atorvastatin (LIPITOR) 20 mg tablet take 1 tablet by mouth once daily at bedtime for cholesterol - omeprazole (PRILOSEC) 40 mg capsule Take 1 capsule by mouth once daily. - valACYclovir (VALTREX) 500 mg tablet Take 1 tablet by mouth two times a day. - predniSONE (DELTASONE) 5 mg tablet Take 1-2 tablets by mouth once daily. - Iavtfsu-Grkpcdbxf-Tzdi tab Calcium 1200 mg once daily. Magnesium 500 mg once daily Zinc - 50 mg once daily. - Ascorbic Acid (VITAMIN C) 1,000 mg tablet Take 1 tablet by mouth once daily. - Cyanocobalamin (VITAMIN B-12) 1,000 mcg TbER Take 1 mcg by mouth once daily. - pyridoxine, vitamin B6, (VITAMIN B-6) 100 mg tablet Take 1 tablet by mouth once daily. 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] 03/31/2006 DIARRHEA NOS [R19.7] CHRONIC LIVER DIS NOS [K76.9] 06/10/2006 CHRONIC RHINITIS [J31.0] 07/16/2006 Hypogonadism male [E29.1] 03/19/2009 Rheumatoid arthritis with rheumatoid factor (HC*07/23/2013 Genital herpes simplex [A60.00] 06/22/2014 Benign prostatic hyperplasia [N40.0] 10/04/2015 GERD without esophagitis [K21.9] 02/06/2021 Encounter Status:Closed by GLENDY ESCALERA on 03/08/24 [facility] Jean Marie 02-19-2024 CNOV Office Visit (FAMPWS ) -------- AARON ADLER ([id number]) 1955 M Date Time Provider Department 02/19/24 1:40 PM LAURIE ESTEVES During your visit today, we recorded the following information about you: Pulse Respiration Blood pressure Weight 98/minute 16/minute 118/80 116 kg Laurie Esteves APRN.CNP 02/19/2024 1:40 PM Addendum Refills provided Recommend consult with Dermatology, local to [facility] or [facility] Consult placed for Neurology, Dr. El if memory changes do not improve or get worse. Follow up as needed. Laurie Esteves APRN.CNP 02/19/2024 2:23 PM Signed This is a 68 year old male who presents today with: Patient presents with: Acute Visit: moles on face and shoulder HISTORY OF PRESENT ILLNESS: Aaron Adler is a 68 year old male. Patient presents with: Acute Visit: moles on face and shoulder Here in the office to discuss mole removal. Mole on face and shoulder. Concerned since they seem to be changing in shape and color. No itching or seeping. Memory changes, difficulty retaining infomration. 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 Refers that he checks his medications several times per day to ensure he took them. No difficulty driving. Will lose things around the house. Has not left stove or water running. No family history of dementia or Alzheimer's. Needs refills. PAST MEDICAL HISTORY: PAST MEDICAL HISTORY Diagnosis Date Arrhythmia Arthralgia Diarrhea Epistaxis Headache(784.0) Hyperlipidemia Mental disorder Mouth sores Other, mixed, or unspecified nondependent drug abuse, unspecified hx heroin addiction PMH - PAST MEDICAL HISTORY OF arthritis S/P ablation operation for arrhythmia 1999 Unspecified constipation PAST SURGICAL HISTORY Procedure Laterality Date COLONOSCOPY FLX DX W/COLLJ SPEC WHEN PFRMD 08/20/2006 Colonoscopy NEUROPLASTY AND/TRANSPOS MEDIAN NRV CARPAL TUNNE 08/07/2005 Carpal tunnel decomp Left PAST SURGICAL HISTORY OF Right 1985 foot surgery/ bone removal d/t infection UNLISTED CARDIAC SURG PROCEDURE 2000 cathetarization for tachycardia ALLERGIES Meloxicam, Bactrim [Sulfamethoxazole], Niacin, and Trimethoprim MEDICATIONS Current Outpatient Medications Medication Sig omeprazole (PRILOSEC) 40 mg capsule Take 1 capsule by mouth once daily. Terazosin HCl (HYTRIN) 10 mg capsule Take 1 capsule by mouth once daily. atorvastatin (LIPITOR) 20 mg tablet take 1 tablet by mouth once daily at bedtime for cholesterol valACYclovir (VALTREX) 500 mg tablet Take 1 tablet by mouth two times a day. predniSONE (DELTASONE) 5 mg tablet Take 1-2 tablets by mouth once daily. Cfmlwdt-Dskpittoi-Mizy tab Calcium 1200 mg once daily. Magnesium 500 mg once daily Zinc - 50 mg once daily. Ascorbic Acid (VITAMIN C) 1,000 mg tablet Take 1 tablet by mouth once daily. Cyanocobalamin (VITAMIN B-12) 1,000 mcg TbER Take 1 mcg by mouth once daily. pyridoxine, vitamin B6, (VITAMIN B-6) 100 mg tablet Take 1 tablet by mouth once daily. No current facility-administered medications for this visit. FAMILY HISTORY Problem Relation Age of Onset Diabetes Mother non insulin dependent Blood Disease Mother 84 multiple myeloma None Father Social History Tobacco Use Smoking status: Former Smokeless tobacco: Never Tobacco comments: quit 15 years ago Substance Use Topics Alcohol use: No Comment: quit 3 years ago Drug use: Yes Comment: former heroin addict REVIEW OF SYSTEMS GENERAL: No weight loss, malaise or fevers/chills HEENT: Negative for frequent or significant headaches, No changes in hearing or vision. NECK: Negative for lumps, goiter, pain and significant neck swelling RESPIRATORY: Negative for cough, hemoptysis, wheezing, dyspnea or shortness of breath CARDIOVASCULAR: Negative for chest pain, leg swelling, orthopnea, or palpitations GI: No nausea, vomiting, or diarrhea/constipation. No hematochezia/melena. No heartburn or reflux symptoms. : No history of dysuria, frequency or incontinence MUSCULOSKELETAL: Negative for joint pain or swelling. SKIN: + Skin Lesions ENDOCRINE: Negative for cold or heat intolerance, polyuria, polydipsia and goiter NEURO: + Memory changes MOOD: Negative for depression, anxiety, or suicidal ideation. EXAM: BP 118/80 Pulse 98 Resp 16 Wt 116 kg (255 lb 11.7 oz) SpO2 96% BMI 38.09 kg/m? PHYSICAL EXAM: General Appearance: Well appearing, alert, in no acute distress, well-hydrated, well nourished. Skin: Mole skin color, with partial darkening noted to right upper cheek, some crusting noted, no erythema., Dark-colored mole noted on right upper shoulder, irregular border, mild crusting. No seeping noted. Head: Normocephalic, no masses, lesions, tenderness or abnormalities. Eyes: Anicteric sclera. Extraocular movements are inta (more content not included)... Normal [facility] CNPNon 02-17-2024 CNPN Telephone (HEMKAREN) -------- AARON ADLER ([id number]) 1955 M Date Time Provider Department 02/17/24 ADELITA MARCANO During your visit today, we recorded the following information about you: Agueda Person 02/17/2024 11:10 AM Signed Patient called in stating that he wanted to schedule an appointment with someone in our office to have a mole on his face and right shoulder froze off. He stated that he was told this could be done in office. He would like to come here and have them removed rather then having to go through dermatology if that is possible. He also stated that if he has to see dermatology then he will be going to someone here local to [place] because he does not want to drive further to see [facility]. The playbook for scheduling for the department does not say anything about mole just skin tags and warts. Please confirm if there are any providers here within the department that would see him to have these 2 moles froze off. 1 mole on the right side of his face and the other is on his right shoulder Susan Langford MA 02/18/2024 8:59 AM Signed OK to scheduled pt with PCP for appt to freeze a mole? Adelita Marcano MD 02/18/2024 9:04 AM Signed OK to schedule here and the lesions can be evaluated to see if treatment in our office is appropriate MD Marcelo Rivero Kathryn, MA 02/18/2024 10:21 AM Signed Pt is already scheduled with Laurie Esteves tomorrow to discuss treatment or removal. Susan Robertson MA Allergies As of Date: 02/17/2024 Noted Allergy Reaction MELOXICAM 10/07/2017 14 - Other: See Comments Comments: Groggy BACTRIM (SULFAMETHOXAZOLE) 08/03/2013 14 - Other: See Comments Comments: thrush NIACIN 03/28/2022 5 - Intolerance Comments: tachycardia TRIMETHOPRIM 09/27/2021 14 - Other: See Comments Date Reviewed: 10/26/2023 Reviewed by: Chalo Mohamud LPN - Fully Assessed Reason for Visit: Question [1527] Prescriptions as of 02/18/2024 - valACYclovir (VALTREX) 500 mg tablet Take 1 tablet by mouth two times a day. - omeprazole (PRILOSEC) 40 mg capsule Take 1 capsule by mouth once daily. - predniSONE (DELTASONE) 5 mg tablet Take 1-2 tablets by mouth once daily. - Terazosin HCl (HYTRIN) 10 mg capsule Take 1 capsule by mouth once daily. - atorvastatin (LIPITOR) 20 mg tablet take 1 tablet by mouth once daily at bedtime for cholesterol - Jehzlif-Knofsaeny-Zqjs tab Calcium 1200 mg once daily. Magnesium 500 mg once daily Zinc - 50 mg once daily. - Ascorbic Acid (VITAMIN C) 1,000 mg tablet Take 1 tablet by mouth once daily. - Cyanocobalamin (VITAMIN B-12) 1,000 mcg TbER Take 1 mcg by mouth once daily. - pyridoxine, vitamin B6, (VITAMIN B-6) 100 mg tablet Take 1 tablet by mouth once daily. 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] 03/31/2006 DIARRHEA NOS [R19.7] CHRONIC LIVER DIS NOS [K76.9] 06/10/2006 CHRONIC RHINITIS [J31.0] 07/16/2006 Hypogonadism male [E29.1] 03/19/2009 Rheumatoid arthritis with rheumatoid factor (HC*07/23/2013 Genital herpes simplex [A60.00] 06/22/2014 Benign prostatic hyperplasia [N40.0] 10/04/2015 GERD without esophagitis [K21.9] 02/06/2021 Encounter Status:Closed by SUSAN ROBERTSON on 02/18/24 [facility] CNOVon 10-26-2023 CNOV Office Visit (FAMPWS ) -------- AARON ADLER ([id number]) 1955 Date Time Provider Department 10/26/23 2:40 PM [facility] During your visit today, we recorded the following information about you: Pulse Respiration Blood pressure 83/minute 16/minute 122/84 Cindy Lloyd APRN.BLANKER OPERATOR 10/26/2023 5:29 PM Signed This is a 67 year old male who presents today with: Patient presents with: Recheck HISTORY OF PRESENT ILLNESS: Aaron Adler is a 67 year old male. Patient presents with: Recheck Pt presents today for recheck. RA: Not following with rheumatology. Has an upcoming appt later this year with rheum, but patient prefers to stay local. HYPERLIPIDEMIA: Patient is taking medications: Yes. Patient is watching diet: No. Refers eats pretty healthy, but does have some fast food. Patient denies myalgias: nothing out of the ordinary. . Patient denies gi upset: No GERD: Controlled w/ PPI. BPH: Urinating okay. Memory Refers that it is still bad. He was supposed to have an appt with Dr. El earlier this month, but it was cancelled. It was not rescheduled. PAST MEDICAL HISTORY: PAST MEDICAL HISTORY Diagnosis Date Arrhythmia Arthralgia Diarrhea Epistaxis Headache(784.0) Hyperlipidemia Mental disorder Mouth sores Other, mixed, or unspecified nondependent drug abuse, unspecified hx heroin addiction PMH - PAST MEDICAL HISTORY OF arthritis S/P ablation operation for arrhythmia 1999 Unspecified constipation PAST SURGICAL HISTORY Procedure Laterality Date COLONOSCOPY FLX DX W/COLLJ SPEC WHEN PFRMD 08/20/2006 Colonoscopy NEUROPLASTY AND/TRANSPOS MEDIAN NRV CARPAL TUNNE 08/07/2005 Carpal tunnel decomp Left PAST SURGICAL HISTORY OF Right 1985 foot surgery/ bone removal d/t infection UNLISTED CARDIAC SURG PROCEDURE 1999 cathetarization for tachycardia ALLERGIES Meloxicam, Bactrim [Sulfamethoxazole], Niacin, and Trimethoprim MEDICATIONS Current Outpatient Medications Medication Sig atorvastatin (LIPITOR) 20 mg tablet take 1 tablet by mouth once daily at bedtime for cholesterol omeprazole (PRILOSEC) 40 mg capsule Take 1 capsule by mouth once daily. (Patient not taking: Reported on 04/10/2023) predniSONE (DELTASONE) 5 mg tablet Take 1-2 tablets by mouth once daily. Terazosin HCl (HYTRIN) 10 mg capsule Take 1 capsule by mouth once daily. Rzcwepc-Rphquqzzt-Wwqj tab Calcium 1200 mg once daily. Magnesium 500 mg once daily Zinc - 50 mg once daily. Ascorbic Acid (VITAMIN C) 1,000 mg tablet Take 1 tablet by mouth once daily. Cyanocobalamin (VITAMIN B-12) 1,000 mcg TbER Take 1 mcg by mouth once daily. pyridoxine, vitamin B6, (VITAMIN B-6) 100 mg tablet Take 1 tablet by mouth once daily. No current facility-administered medications for this visit. FAMILY HISTORY Problem Relation Age of Onset Diabetes Mother non insulin dependent Blood Disease Mother 84 multiple myeloma None Father Social History Tobacco Use Smoking status: Former Smokeless tobacco: Never Tobacco comments: quit 15 years ago Substance Use Topics Alcohol use: No Comment: quit 3 years ago Drug use: Yes Comment: former heroin addict EXAM: BP 122/84 Pulse 83 Resp 16 SpO2 94% PHYSICAL EXAM: General Appearance: Well appearing, alert, in no acute distress, well-hydrated, well nourished.. Skin: Skin color, texture, turgor normal, no suspicious rashes or lesions. Head: Normocephalic, no masses, lesions, tenderness or abnormalities. Eyes: Anicteric sclera. Extraocular movements are intact. . Lungs: Lungs clear to auscultation. No wheezing, rhonchi, rales.. Heart: RRR without murmur, gallop, or rubs. No ectopy. Extremities: No deformities, edema, skin discoloration, clubbing or cyanosis. Good capillary refill. Neurologic: Gait normal. ASSESSMENT/PLAN: 1. Hypertriglyceridemia - ICD9: 272.1, ICD10: E78.1 (primary diagnosis) - Controlled - Continue current medications - Counseled on healthy diet and regular exercise 2. Encounter for immunization - ICD9: V03.89, ICD10: Z23 - PNEUMOCOCCAL VACCINE, 20 VALENT (PREVNAR 20) 3. 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) - ICD9: 714.0, ICD10: M05.711 Chronic prednisone use. Not following with rheum. Would like to stay local. 4. BPH with urinary obstruction - ICD9: 600.01, 599.69, ICD10: N40.1, N13.8 Stable on medication. 5. Cognitive impairment, mild, so stated - ICD9: 331.83, ICD10: G31.84 Reschedule w/ neuro. 6. GERD without esophagitis - ICD9: 530.81, ICD10: K21.9 - stable on PPI. Discussed treatment plan and patient voices understanding. Patient's questions answered appropriately. Medications and potential side effects were discussed and patient voices understanding. Return to the office as scheduled or as needed for worsening/no improvement. Chr (more content not included)... Normal [facility] 08-21-2023 CNPN Telephone (MANDY) -------- AARON ADLER ([id number]) 1955 M Date Time Provider Department 08/21/23 LAURIE ESTEVES During your visit today, we recorded the following information about you: Laurie Esteves APRN.CNP 08/21/2023 1:02 PM Signed Can you please call the patient and let him know that I reviewed his lab results. Labs were all relatively normal, glucose just mildly elevated, A1c 5.6. Prediabetes starts at 5.7. At this time I do not see any causes for his shakiness and sweating. I would recommend considering a HIV lab test, chest x-ray, and urine testing for further evaluation. If he is agreeable I can place those orders. Please let me know if he has any additional questions. Thank you. Laurie Esteves APRN.Geri Zeng LPN 08/21/2023 1:22 PM Signed TC to pt. LM to call office, ask for triage nurse to get results. JUAN Holman Krystle, RN 08/21/2023 2:32 PM Signed Patient calls and notified of results and providers instructions. Patient verbalizes understanding and is willing to do the recommended testing for further evaluation. He reports HIV would be next to impossible but will do that as well. ORLIN Strong Ashley, APRN.MADI 08/21/2023 2:57 PM Signed Orders have been entered, he may come in any time to complete. Thank you. Laurie Esteves APRN.Susan Shankar MA 08/21/2023 2:59 PM Signed Pt notified. Susan Robertson MA Allergies As of Date: 08/21/2023 Noted Allergy Reaction MELOXICAM 10/07/2017 14 - Other: See Comments Comments: Groggy BACTRIM (SULFAMETHOXAZOLE) 08/03/2013 14 - Other: See Comments Comments: thrush NIACIN 03/28/2022 5 - Intolerance Comments: tachycardia TRIMETHOPRIM 09/27/2021 14 - Other: See Comments Date Reviewed: 08/20/2023 Reviewed by: Geri Phoenix LPN - Fully Assessed Reason for Visit: Results [95] Cmt: Labs Primary Visit Diagnosis:Shakiness [R25.1] Other Visit Diagnosis:Diaphoresis [R61] Order(s):HIV 1/2 COMBO WITH REFLEX TO DIFFERENTIATION [SQHIV12] Order #: [id number] FUTURE XR CHEST 2V FRONTAL/LAT [[id number]] Order #: [id number] FUTURE URINALYSIS, WITH MICROSCOPIC [SQUAWMIC] Order #: [id number] FUTURE Prescriptions as of 08/21/2023 - atorvastatin (LIPITOR) 20 mg tablet take 1 tablet by mouth once daily at bedtime for cholesterol - omeprazole (PRILOSEC) 40 mg capsule Take 1 capsule by mouth once daily. - predniSONE (DELTASONE) 5 mg tablet Take 1-2 tablets by mouth once daily. - Terazosin HCl (HYTRIN) 10 mg capsule Take 1 capsule by mouth once daily. - Qnppujm-Cobjxwrwd-Dmbk tab Calcium 1200 mg once daily. Magnesium 500 mg once daily Zinc - 50 mg once daily. - Ascorbic Acid (VITAMIN C) 1,000 mg tablet Take 1 tablet by mouth once daily. - Cyanocobalamin (VITAMIN B-12) 1,000 mcg TbER Take 1 mcg by mouth once daily. - pyridoxine, vitamin B6, (VITAMIN B-6) 100 mg tablet Take 1 tablet by mouth once daily. 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] 03/31/2006 DIARRHEA NOS [R19.7] CHRONIC LIVER DIS NOS [K76.9] 06/10/2006 CHRONIC RHINITIS [J31.0] 07/16/2006 Hypogonadism male [E29.1] 03/19/2009 Rheumatoid arthritis with rheumatoid factor (HC*07/23/2013 Genital herpes simplex [A60.00] 06/22/2014 Benign prostatic hyperplasia [N40.0] 10/04/2015 GERD without esophagitis [K21.9] 02/06/2021 Encounter Status:Closed by SUSAN ROBERTSON on 08/21/23 [facility] Auto Differential pane l (Bld)on 08-20-2023 Basophils (Bld) [#/Vol] 0.06 10*3/uL NINF [facility] Basophils/100 WBC (Bld) 0.8 % [facility] Differential cell count method Nom (Bld) Auto [facility] Eosinophils (Bld) [#/Vol] 0.09 10*3/uL [facility] Eosinophils/100 WBC (Bld) 1.2 % [facility] Erythrocyte distribution width (RBC) [Ratio] 12.9 % 11.5 - 15.0 % [facility] Hematocrit (Bld) [Volume fraction] 45.9 % 39.0 - 51.0 % [facility] Hemoglobin (Bld) [Mass/Vol] 15.4 g/dL 13.0 - 17.0 g/dL [facility] Immature granulocytes (Bld) [#/Vol] 0.03 10*3/uL [facility] Immature granulocytes/100 WBC (Bld) 0.4 % [facility] Lymphocytes (Bld) [#/Vol] 2.08 10*3/uL [facility] Lymphocytes/100 WBC (Bld) 27.7 % [facility] MCH (RBC) [Entitic mass] 30.6 pg 26.0 - 34.0 pg [facility] MCHC (RBC) [Mass/Vol] 33.6 g/dL 30.5 - 36.0 g/dL [facility] MCV (RBC) [Entitic vol] 91.3 fL 80.0 - 100.0 fL [facility] Monocytes (Bld) [#/Vol] 0.62 10*3/uL [facility] Monocytes/100 WBC (Bld) 8.3 % [facility] Neutrophils (Bld) [#/Vol] 4.63 10*3/uL [facility] Neutrophils/100 WBC (Bld) 61.6 % [facility] Nucleated RBC (Bld) [#/Vol] [facility] Nucleated RBC/100 WBC (Bld) [Ratio] 0.0 % /100 WBC [facility] Platelet mean volume (Bld) [Entitic vol] 10.0 fL 9.0 - 12.7 fL [facility] Platelets (Bld) [#/Vol] 224 10*3/uL [facility] RBC (Bld) [#/Vol] 5.03 10*6/uL 4.20 - 6.0 0 m/uL [facility] WBC (Bld) [#/Vol] 7.51 10*3/uL [facility] Basophils (Bld) [#/Vol] 0.06 10*3/uL Normal <0.11 [facility] Comment on above: Order Comment: Speci men Type: BLOOD SPECIMENOrdering Facility: [facility] Address: [address] [place] [address] Performed By: #### 5 7021-8 ####[facility] LABCLIA [id number] [place] [address] [place] Basophils/100 WBC (Bld) 0.8 % Normal [facility] Comment on above: Order Comment: Speci men Type: BLOOD SPECIMENOrdering Facility: [facility] Address: [address] [place] [address] Performed By: #### 5 7021-8 ####[facility] LABCLIA [id number] [place] [address] [place] Differential cell count method Nom (Bld) Auto Normal [facility] Comment on above: Order Comment: Speci men Type: BLOOD SPECIMENOrdering Facility: [facility] Address: [address] [place] [address] Performed By: #### 5 7021-8 ####[facility] LABCLIA [id number] [place] [address] [place] Eosinophils (Bld) [#/Vol] 0.09 10*3/uL Normal <0.46 [facility] Comment on above: Order Comment: Speci men Type: BLOOD SPECIMENOrdering Facility: [facility] Address: [address] [place] [address] Performed By: #### 5 7021-8 ####[facility] LABCLIA [id number] [place] [address] [place] Eosinophils/100 WBC (Bld) 1.2 % Normal [facility] Comment on above: Order Comment: Speci men Type: BLOOD SPECIMENOrdering Facility: [facility] Address: [address] [place] [address] Performed By: #### 5 7021-8 ####[facility] LABCLIA [id number] [place] [address] [place] Erythrocyte distribution width (RBC) [Ratio] 12.9 % Normal 11.5-15.0 [facility] Comment on above: Order Comment: Speci men Type: BLOOD SPECIMENOrdering Facility: [facility] Address: [address] [place] [address] Performed By: #### 5 7021-8 ####[facility] LABIA [id number] [place] [address] [place] Hematocrit (Bld) [Volume fraction] 45.9 % Normal 39.0-51.0 [facility] Comment on above: Order Comment: Speci men Type: BLOOD SPECIMENOrdering Facility: [facility] Address: [address] [place] [address] Performed By: #### 5 7021-8 ####[facility] LABIA [id number] [place] [address] [place] Hemoglobin (Bld) [Mass/Vol] 15.4 g/dL Normal 13.0-17.0 [facility] Comment on above: Order Comment: Speci men Type: BLOOD SPECIMENOrdering Facility: [facility] Address: [address] [place] [address] Performed By: #### 5 7021-8 ####[facility] LABIA [id number] [place] [address] [place] Immature granulocytes (Bld) [#/Vol] 0.03 10*3/uL Normal <0.10 [facility] Comment on above: Order Comment: Speci men Type: BLOOD SPECIMENOrdering Facility: [facility] Address: [address] [place] [address] Performed By: #### 5 7021-8 ####[facility] LABIA [id number] [place] [address] [place] Immature granulocytes/100 WBC (Bld) 0.4 % Normal [facility] Comment on above: Order Comment: Speci men Type: BLOOD SPECIMENOrdering Facility: [facility] Address: [address] [place] [address] Performed By: #### 5 7021-8 ####[facility] LABCLIA [id number] [place] [address] [place] Lymphocytes (Bld) [#/Vol] 2.08 10*3/uL Normal 1.00-4.00 [facility] Comment on above: Order Comment: Speci men Type: BLOOD SPECIMENOrdering Facility: [facility] Address: [address] [place] [address] Performed By: #### 5 7021-8 ####[facility] LABCLIA [id number] [place] [address] [place] Lymphocytes/100 WBC (Bld) 27.7 % Normal [facility] Comment on above: Order Comment: Speci men Type: BLOOD SPECIMENOrdering Facility: [facility] Address: [address] [place] [address] Performed By: #### 5 7021-8 ####[facility] LABCLIA [id number] [place] [address] [place] MCH (RBC) [Entitic mass] 30.6 pg Normal 26.0-34.0 [facility] Comment on above: Order Comment: Speci men Type: BLOOD SPECIMENOrdering Facility: [facility] Address: [address] [place] [address] Performed By: #### 5 7021-8 ####[facility] LABCLIA [id number] [place] [address] [place] MCHC (RBC) [Mass/Vol] 33.6 g/dL Normal 30.5-36.0 [facility] Comment on above: Order Comment: Speci men Type: BLOOD SPECIMENOrdering Facility: [facility] Address: [address] [place] [address] Performed By: #### 5 7021-8 ####[facility] LABCLIA [id number] [place] [address] [place] MCV (RBC) [Entitic vol] 91.3 fL Normal 80.0-100.0 [facility] Comment on above: Order Comment: Speci men Type: BLOOD SPECIMENOrdering Facility: [facility] Address: [address] [place] [address] Performed By: #### 5 7021-8 ####[facility] LABCLIA [id number] [place] [address] [place] Monocytes (Bld) [#/Vol] 0.62 10*3/uL Normal <0.87 [facility] Comment on above: Order Comment: Speci men Type: BLOOD SPECIMENOrdering Facility: [facility] Address: [address] [place] [address] Performed By: #### 5 7021-8 ####[facility] LABIA [id number] [place] [address] [place] Monocytes/100 WBC (Bld) 8.3 % Normal [facility] Comment on above: Order Comment: Speci men Type: BLOOD SPECIMENOrdering Facility: [facility] Address: [address] [place] [address] Performed By: #### 5 7021-8 ####[facility] LABCLIA [id number] [place] [address] [place] Neutrophils (Bld) [#/Vol] 4.63 10*3/uL Normal 1.45-7.50 [facility] Comment on above: Order Comment: Speci men Type: BLOOD SPECIMENOrdering Facility: [facility] Address: [address] [place] [address] Performed By: #### 5 7021-8 ####[facility] LABCLIA [id number] [id number] [address] [place] Neutrophils/100 WBC (Bld) 61.6 % Normal [facility] Comment on above: Order Comment: Speci men Type: BLOOD SPECIMENOrdering Facility: [facility] Address: [address] [place] [address] Performed By: #### 5 7021-8 ####[facility] LABCLIA [id number] [place] [address] [place] Nucleated RBC (Bld) [#/Vol] 10*3/uL Normal <0.01 [facility] Comment on above: Order Comment: Speci men Type: BLOOD SPECIMENOrdering Facility: [facility] Address: [address] [place] [address] Performed By: #### 5 7021-8 ####[facility] LABCLIA [id number] [place] [address] [place] Nucleated RBC/100 WBC (Bld) [Ratio] 0.0 /100 WBC Normal [facility] Comment on above: Order Comment: Speci men Type: BLOOD SPECIMENOrdering Facility: [facility] Address: [address] [place] [address] Performed By: #### 5 7021-8 ####[facility] LABCLIA [id number] [place] [address] [place] Platelet mean volume (Bld) [Entitic vol] 10.0 fL Normal 9.0-12.7 [facility] Comment on above: Order Comment: Speci men Type: BLOOD SPECIMENOrdering Facility: [facility] Address: [address] [place] [address] Performed By: #### 5 7021-8 ####[facility] LABCLIA [id number] [place] [address] [place] Platelets (Bld) [#/Vol] 224 10*3/uL Normal 150-400 [facility] Comment on above: Order Comment: Speci men Type: BLOOD SPECIMENOrdering Facility: [facility] Address: [address] [place] [address] Performed By: #### 5 7021-8 ####[facility] LABCLIA [id number] [place] [id number] [place] RBC (Bld) [#/Vol] 5.03 10*6/uL Normal 4.20-6.00 [facility] Comment on above: Order Comment: Speci men Type: BLOOD SPECIMENOrdering Facility: [facility] Address: [address] [place] [address] Performed By: #### 5 7021-8 ####[facility] LABIA [id number] [place] [address] [place] WBC (Bld) [#/Vol] 7.51 10*3/uL Normal 3.70-11.00 [facility] Comment on above: Order Comment: Speci men Type: BLOOD SPECIMENOrdering Facility: [facility] Address: [address] [place] [address] Performed By: #### 5 7021-8 ####[facility] LABIA [id number] [address] [place] CNOVon 08-20-2023 [facility] -------- AARON ADLER ([id number]) 1955 M Date Time Provider Department 08/20/23 12:40 PM [facility] your visit today, we recorded the following information about you: Pulse Respiration Blood pressure Weight 84/minute 16/minute 112/82 112.9 kg Laurie Esteves APRN.CNP 08/20/2023 3:07 PM Signed This is a 67 year old male who presents today with: Patient presents with: Acute Visit: Walterkines and fatique HISTORY OF PRESENT ILLNESS: Aaron Adler is a 67 year old male. Patient presents with: Acute Visit: Shakines and fatique Here in the office for express care follow-up. Was seen in express care for shakiness and fatigue. Patient has a history of rheumatoid arthritis. Was following with rheumatology in the past. Has been taking prednisone 5 mg, 1 to 2 tablets daily for the past 10 years? PCP has been filling medication. Per discussion with express care provider patient was adamant he did not want to stop this medication. Glucose was 117 in express care, no signs of hypoglycemia. Refers that shakiness started a couple days ago. Increased sweating. Hand and knee pain, seems to be stable with prednisone use. Denies chest pain, palpitations, or dizziness. PAST MEDICAL HISTORY: PAST MEDICAL HISTORY Diagnosis Date Arrhythmia Arthralgia Diarrhea Epistaxis Headache(784.0) Hyperlipidemia Mental disorder Mouth sores Other, mixed, or unspecified nondependent drug abuse, unspecified hx heroin addiction PMH - PAST MEDICAL HISTORY OF arthritis S/P ablation operation for arrhythmia 1999 Unspecified constipation PAST SURGICAL HISTORY Procedure Laterality Date COLONOSCOPY FLX DX W/COLLJ SPEC WHEN PFRMD 08/20/2006 Colonoscopy NEUROPLASTY AND/TRANSPOS MEDIAN NRV CARPAL TUNNE 08/07/2005 Carpal tunnel decomp Left PAST SURGICAL HISTORY OF Right 1985 foot surgery/ bone removal d/t infection UNLISTED CARDIAC SURG PROCEDURE 1999 cathetarization for tachycardia ALLERGIES Meloxicam, Bactrim [Sulfamethoxazole], Niacin, and Trimethoprim MEDICATIONS Current Outpatient Medications Medication Sig atorvastatin (LIPITOR) 20 mg tablet take 1 tablet by mouth once daily at bedtime for cholesterol omeprazole (PRILOSEC) 40 mg capsule Take 1 capsule by mouth once daily. (Patient not taking: Reported on 04/10/2023) predniSONE (DELTASONE) 5 mg tablet Take 1-2 tablets by mouth once daily. Terazosin HCl (HYTRIN) 10 mg capsule Take 1 capsule by mouth once daily. Pjsffyy-Qwuenlrmi-Gsqf tab Calcium 1200 mg once daily. Magnesium 500 mg once daily Zinc - 50 mg once daily. Ascorbic Acid (VITAMIN C) 1,000 mg tablet Take 1 tablet by mouth once daily. Cyanocobalamin (VITAMIN B-12) 1,000 mcg TbER Take 1 mcg by mouth once daily. pyridoxine, vitamin B6, (VITAMIN B-6) 100 mg tablet Take 1 tablet by mouth once daily. No current facility-administered medications for this visit. FAMILY HISTORY Problem Relation Age of Onset Diabetes Mother non insulin dependent Blood Disease Mother 84 multiple myeloma None Father Social History Tobacco Use Smoking status: Former Smokeless tobacco: Never Tobacco comments: quit 15 years ago Substance Use Topics Alcohol use: No Comment: quit 3 years ago Drug use: Yes Comment: former heroin addict REVIEW OF SYSTEMS GENERAL: + Shakiness/Sweating HEENT: Negative for frequent or significant headaches, No changes in hearing or vision. NECK: Negative for lumps, goiter, pain and significant neck swelling RESPIRATORY: Negative for cough, hemoptysis, wheezing, dyspnea or shortness of breath CARDIOVASCULAR: Negative for chest pain, leg swelling, orthopnea, or palpitations GI: No nausea, vomiting, or diarrhea/constipation. No hematochezia/melena. No heartburn or reflux symptoms. : No history of dysuria, frequency or incontinence MUSCULOSKELETAL: Negative for joint pain or swelling. SKIN: Negative for lesions, rash, and itching ENDOCRINE: Negative for cold or heat intolerance, polyuria, polydipsia and goiter NEURO: No history of headaches, syncope, paralysis, seizures or tremors MOOD: Negative for depression, anxiety, or suicidal ideation. EXAM: BP 112/82 Pulse 84 Resp 16 Wt 112.9 kg (249 lb) SpO2 94% BMI 37.09 kg/m? PHYSICAL EXAM: General Appearance: Well appearing, alert, in no acute distress, well-hydrated, well nourished. Skin: Skin color, texture, turgor normal, no suspicious rashes or lesions. Head: Normocephalic, no masses, lesions, tenderness or abnormalities. Eyes: Anicteric sclera. Extraocular movements are intact. Neck: Supple, no adenopathy; thyroid symmetric, normal size, no bruits. Lungs: Lungs clear to auscultation. No wheezing, rhonchi, rales. Heart: RRR without murmur, gallop, or rubs. No ectopy. Extremities: No deformities, edema, skin discoloration, clubbing or cyanosis (more content not included)... Normal [facility] Comprehensive metabolic 2000 panelon 08-20-2023 Albumin [Mass/Vol] 4.3 g/dL Normal 3.9-4.9 [facility] Comment on above: Order Comment: Speci men Type: BLOOD SPECIMENOrdering Facility: [facility] Address: [address] [place] [address] Performed By: #### 2 4323-8, , 3 ####[facility] LABCLIA [id number] [place] [id number] [place] ALP [Catalytic activity/Vol] 69 U/L Normal 38-113 [facility] Comment on above: Order Comment: Speci men Type: BLOOD SPECIMENOrdering Facility: [facility] Address: [address] [place] [address] Performed By: #### 2 4323-8, , 3 ####[facility] LABCLIA [id number] [place] [address] [place] ALT [Catalytic activity/Vol] 37 U/L Normal 10-54 [facility] Comment on above: Order Comment: Speci men Type: BLOOD SPECIMENOrdering Facility: [facility] Address: [address] [place] [address] Performed By: #### 2 4323-8, , 3 ####[facility] LABCLIA [id number] [place] [id number] [place] Anion gap [Moles/Vol] 13 mmol/L Normal 8-15 [facility] Comment on above: Order Comment: Speci men Type: BLOOD SPECIMENOrdering Facility: [facility] Address: [address] [place] [address] Performed By: #### 2 4323-8, , 3 ####[facility] LABCLIA [id number] [place] [id number] [place] AST [Catalytic activity/Vol] 29 U/L Normal 14-40 [facility] Comment on above: Order Comment: Speci men Type: BLOOD SPECIMENOrdering Facility: [facility] Address: [address] [place] [address] Performed By: #### 2 4323-8, 57963-7, 3015-3 ####[facility] LABCLIA [id number] [address] [address] [place] Bilirubin [Mass/Vol] 0.5 mg/dL Normal 0.2-1.3 [facility] Comment on above: Order Comment: Speci men Type: BLOOD SPECIMENOrdering Facility: [facility] Address: [address] [place], [place] [address] Performed By: #### 2 4323-8, , 3015-3 ####[facility] LABCLIA [id number] [place] [address] [place] Calcium [Mass/Vol] 9.3 mg/dL Normal 8.5-10.2 [facility] Comment on above: Order Comment: Speci men Type: BLOOD SPECIMENOrdering Facility: [facility] Address: [address] [place] [address] Performed By: #### 2 4323-8, , 3 ####[facility] LABCLIA [id number] [place] [address] [place] Chloride [Moles/Vol] 105 mmol/L Normal 98-107 [facility] Comment on above: Order Comment: Speci men Type: BLOOD SPECIMENOrdering Facility: [facility] Address: [address] [place] [address] Performed By: #### 2 4323-8, , 3015-3 ####[facility] LABCLIA [id number] [address] [address] [place] CO2 [Moles/Vol] 23 mmol/L Normal 22-30 [facility] Comment on above: Order Comment: Speci men Type: BLOOD SPECIMENOrdering Facility: [facility] Address: [address] [place] [address] Performed By: #### 2 4323-8, 94061-5, 3015-3 ####[facility] LABIA [id number] [address] [address] [place] Creatinine [Mass/Vol] 0.99 mg/dL Normal 0.73-1.22 [facility] Comment on above: Order Comment: Speci men Type: BLOOD SPECIMENOrdering Facility: [facility] Address: [address] [place] [address] Performed By: #### 2 4323-8, , 3015-3 ####[facility] LABIA [id number] [place] [address] [place] Creatinine and Glomerular filtration rate.predicted panel (S/P/Bld) 83 mL/min/1.73m??? Normal >=60 [facility] Comment on above: Order Comment: Sebastian lynn Type: BLOOD SPECIMENOrdering Facility: [facility] Address: [address] [place] [address] Result Comment: Uzma mated Glomerular Filtration Rate (eGFR) is calculated using the 2020 CKD-EPI creatinine equation. This equation utilizes serum creatinine, sex, and age as parameters. The creatinine assay has traceable calibration to isotope dilution-mass spectrometry. Refer to KDIGO guidelines for clinical interpretation. In patients with unstable renal function, e.g. those with acute kidney injury, the eGFR may not accurately reflect actual GFR. Performed By: #### 2 4323-8, , 3 ####[facility] LABIA [id number] [address] [address] [place] Glucose [Mass/Vol] 107 mg/dL High 74-99 [facility] Comment on above: Order Comment: Fabrizioi leah Type: BLOOD SPECIMENOrdering Facility: [facility] Address: [address] [place] [address] Result Comment: The [place] Diabetes Association (ADA) provides guidance for cutoff values for fasting glucose and random glucose. The ADA defines fasting as no caloric intake for at least 8 hours. Fasting plasma glucose results between 100 to 125 mg/dL indicate increased risk for diabetes (prediabetes). Fasting plasma glucose results greater than or equal to 126 mg/dL meet the criteria for diagnosis of diabetes. In the absence of unequivocal hyperglycemia, results should be confirmed by repeat testing. In a patient with classic symptoms of hyperglycemia or hyperglycemic crisis, random plasma glucose results greater than or equal to 200 mg/dL meet the criteria for diagnosis of diabetes. Reference: Standards of Medical Care in Diabetes 2016, [place] Diabetes Association. Diabetes Care. 2016.39(Suppl 1). Performed By: #### 2 4323-8, , 3015-3 ####[facility] LABCLIA [id number] [place] [address] [place] Potassium [Moles/Vol] 4.4 mmol/L Normal 3.7-5.1 [facility] Comment on above: Order Comment: Speci men Type: BLOOD SPECIMENOrdering Facility: [facility] Address: [address] [place] [address] Performed By: #### 2 4323-8, , 3 ####[facility] LABIA [id number] [place] [address] [place] Protein [Mass/Vol] 7.0 g/dL Normal 6.3-8.0 [facility] Comment on above: Order Comment: Speci men Type: BLOOD SPECIMENOrdering Facility: [facility] Address: [address] [place] [address] Performed By: #### 2 4323-8, , 3 ####[facility] LABCLIA [id number] [address] [address] [place] Sodium [Moles/Vol] 141 mmol/L Normal 136-144 [facility] Comment on above: Order Comment: Speci men Type: BLOOD SPECIMENOrdering Facility: [facility] Address: [address] [place] [address] Performed By: #### 2 4323-8, , 3 ####[facility] LABCLIA [id number] [place] [address] [place] Urea nitrogen [Mass/Vol] 18 mg/dL Normal 9-24 [facility] Comment on above: Order Comment: Fabrizioi men Type: BLOOD SPECIMENOrdering Facility: [facility] Address: [address] [place] [address] Performed By: #### 2 4323-8, 52306-8, 3016-3 ####[facility] LABCLIA [id number] [place] [address] [place] HbA1c (Bld)on 08-20-2023 Average glucose Estimated from glycated hemoglobin (Bld) [Mass/Vol] 114 mg/dL Normal [facility] Comment on above: Order Comment: Sebastian lynn Type: BLOOD SPECIMENOrdering Facility: [facility] Address: [address] [place] [address] Result Comment: eAG: (Estimated average glucose) is a calculated value from HgbA1c and is fraud representative of the average blood glucose level in the last 2-3 month period. Performed By: #### 5 5454-3 ####[facility] LABIA [id number] [place] [address] [place] HbA1c (Bld) [Mass fraction] 5.6 % Normal 4.3-5.6 [facility] Comment on above: Order Comment: Sebastian lynn Type: BLOOD SPECIMENOrdering Facility: [facility] Address: [address] [place] [address] Result Comment: [place] Diabetes Association guidelines indicate that patients with HgbA1c in the range 5.7-6.4% are at increased risk for development of diabetes, and intervention by lifestyle modification may be beneficial. HgbA1c greater or equal to 6.5% is considered diagnostic of diabetes. Performed By: #### 5 5454-3 ####[facility] LABCLIA [id number] [place] [address] [place] Magnesium SerPl-mCncon 08-19 Magnesium [Mass/Vol] 2.2 mg/dL Normal 1.7-2.3 [facility] Comment on above: Order Comment: Speci men Type: BLOOD SPECIMENOrdering Facility: [facility] Address: [address] [place] [address] Performed By: #### 2 4323-8, 42284-4, 3016-3 ####[facility] LABCLIA [id number] [place] [address] [place] TSH SerPl-aCncon 08-20-2023 TSH Qn 0.736 m[IU]/L Normal 0.270-4.200 [facility] Comment on above: Order Comment: Speci men Type: BLOOD SPECIMENOrdering Facility: [facility] Address: [address] [place] [address] Performed By: #### 2 4323-8, 34106-8, 3016-3 ####[facility] LABCLIA [id number] [address] [place] CNOVon 08-18-2023 CNOV Office Visit ([facility] ) -------- AARON ADLER ([id number]) 1955 M Date Time Provider Department 08/18/23 5:15 PM COSMO VILLALOBOS [facility] During your visit today, we recorded the following information about you: Temperature Pulse Respiration Blood pressure 97.8 degrees 80/minute 18/minute 149/83 Weight 113.3 kg Cosmo Villalobos APRN.BLANKER OPERATOR 08/18/2023 5:54 PM Addendum Subjective HPI Nontoxic-appearing male presents urgent care chief complaint memory issues fatigue and shakiness. Duration of symptoms 12 days. Associated symptoms listed above. Patient states shortly started after picking up his prescription of prednisone. Has been on prednisone greater than 10 years. States felt different after taking new prescription prednisone. States he is not worsening and not improving. Denies any pain. Denies any dizziness visual changes headache cough fever body aches chills nausea vomiting abdominal pain chest pain shortness of breath arrhythmias. Past medical history prescription medications allergies reviewed. .Patient presents with: Allergic Reaction: Possibly from prednisone, patient says is a different pill than he normally receives, has been on for 10 years PAST MEDICAL HISTORY Diagnosis Date Arrhythmia Arthralgia Diarrhea Epistaxis Headache(784.0) Hyperlipidemia Mental disorder Mouth sores Other, mixed, or unspecified nondependent drug abuse, unspecified hx heroin addiction PMH - PAST MEDICAL HISTORY OF arthritis S/P ablation operation for arrhythmia 1999 Unspecified constipation PAST SURGICAL HISTORY Procedure Laterality Date COLONOSCOPY FLX DX W/COLLJ SPEC WHEN PFRMD 08/20/2006 Colonoscopy NEUROPLASTY AND/TRANSPOS MEDIAN NRV CARPAL TUNNE 08/07/2005 Carpal tunnel decomp Left PAST SURGICAL HISTORY OF Right 1985 foot surgery/ bone removal d/t infection UNLISTED CARDIAC SURG PROCEDURE 1999 cathetarization for tachycardia ALLERGIES Meloxicam, Bactrim [Sulfamethoxazole], Niacin, and Trimethoprim MEDICATIONS atorvastatin (LIPITOR) 20 mg tablet take 1 tablet by mouth once daily at bedtime for cholesterol predniSONE (DELTASONE) 5 mg tablet Take 1-2 tablets by mouth once daily. Terazosin HCl (HYTRIN) 10 mg capsule Take 1 capsule by mouth once daily. Yqcuyar-Gktkfomkn-Diip tab Calcium 1200 mg once daily. Magnesium 500 mg once daily Zinc - 50 mg once daily. Ascorbic Acid (VITAMIN C) 1,000 mg tablet Take 1 tablet by mouth once daily. Cyanocobalamin (VITAMIN B-12) 1,000 mcg TbER Take 1 mcg by mouth once daily. pyridoxine, vitamin B6, (VITAMIN B-6) 100 mg tablet Take 1 tablet by mouth once daily. omeprazole (PRILOSEC) 40 mg capsule Take 1 capsule by mouth once daily. (Patient not taking: Reported on 04/10/2023) FAMILY HISTORY Problem Relation Age of Onset Diabetes Mother non insulin dependent Blood Disease Mother 84 multiple myeloma None Father Social History Tobacco Use Smoking status: Former Smokeless tobacco: Never Tobacco comments: quit 15 years ago Substance Use Topics Alcohol use: No Comment: quit 3 years ago Drug use: Yes Comment: former heroin addict BP 149/83 Pulse 80 Temp 36.6 ?C (97.8 ?F) Resp 18 Wt 113.3 kg (249 lb 12.5 oz) SpO2 95% BMI 37.21 kg/m? Review of Systems Constitutional: Positive for malaise/fatigue. Negative for chills and fever. HENT: Negative for congestion, ear discharge, ear pain, sinus pain and sore throat. Eyes: Negative for blurred vision, pain, discharge and redness. Respiratory: Negative for cough, hemoptysis, sputum production, shortness of breath, wheezing and stridor. Cardiovascular: Negative for chest pain. Gastrointestinal: Negative for abdominal pain, diarrhea, nausea and vomiting. Musculoskeletal: Positive for myalgias. Skin: Negative for itching and rash. Neurological: Negative for dizziness and headaches. Objective Physical Exam Constitutional: General: He is not in acute distress. Appearance: He is not diaphoretic. HENT: Head: Normocephalic. Jaw: No trismus, tenderness, swelling or pain on movement. Mouth/Throat: Mouth: Mucous membranes are moist. Pharynx: Oropharynx is clear. Uvula midline. No pharyngeal swelling, oropharyngeal exudate, posterior oropharyngeal erythema or uvula swelling. Eyes: Conjunctiva/sclera: Conjunctivae normal. Pupils: Pupils are equal, round, and reactive to light. Cardiovascular: Rate and Rhythm: Normal rate and regular rhythm. Heart sounds: Normal heart sounds. Pulmonary: Effort: Pulmonary effort is normal. No tachypnea, accessory muscle usage or respiratory distress. Breath sounds: Normal breath sounds. No stridor. No wheezing, rhonchi or rales. Abdominal: General: There is no distension. Palpations: Abdomen is soft. Tenderness: There is no abdominal tenderness. There is no guarding or rebound. Musculoskeletal: Cervical (more content not included)... Normal [facility] GLUCOSE, BLOOD (POC)on 08-17 Glucose [Mass/Vol] 117 mg/dL Abnormal 74 - 99 mg/dL [facility] Comment on above: Glu2: Result Confirm ed Location:[facility], [address] [place] [address], [place], [address] The Accu-Chek Inform II glucose meter has not been approved for testing on patients receiving intensive medical intervention or therapy and results from this point of care glucose test should not be used for patient management decisions in these cases. Inaccurate results may also occur from other interfering factors, such as N-acetylcysteine (blood concentrations of greater than 5mg/dL), galactose, extremes of hematocrit (<10 or >65), or high doses of ascorbic acid (vitamin C) greater than 3mg/dL. Consider alternate testing mechanisms (e.g. core lab, blood gas instrument) in the above situations. Interpretation and review of laboratory results Abnormal [facility] CNPNon 08-10-2023 CNPN Telephone (FAMPWS) -------- AARON ADLER ([id number]) 1955 Date Time Provider Department 08/10/23 TRISTEN BROWN During your visit today, we recorded the following information about you: Vee Giraldo MA 08/10/2023 2:06 PM Signed TC to patient to clarify appointment for Thursday08/11/2023 with Tristen Brown: memory issues. Unable to reach. Left VM to return call to office. Please advise of below. According to Neurology consult 04/10/23 for Memory Loss: Assessment and Plan: ASSESSMENT/PLAN: 1. MCI (mild cognitive impairment) - ICD9: 331.83, ICD10: G31.84 (primary diagnosis) 2. Memory loss - ICD9: 780.93, ICD10: R41.3 Patient with complaint of progressive memory loss over past 2 years, but not to the extent that it is limiting his daily activities in any way. Metabolic workup unremarkable. MRI and history not suggestive of NPH. No evidence of vascular etiology on MRI and symptoms not of an abrupt/acute nature. Did review MRI brain findings with pt and while most of brain volume in ~40% question if this may be an underestimate. Still discussed what possible findings mean as well as when taking into account history. At this time, at worst, would dx pt with MCI, but still could have early signs of a progressive neuro degenerative process such as Alzheimer's. I discussed further evaluation but pt declines (I.e. neuropsych, CSF, center for brain health). Discussed treatment options if needed in the future including Arciept, Namenda, or possibly infusion (he indicates he would decline the later). For now, feel appropriate to continue to monitor patient. Will have him back in 6 months for repeat evaluation. However, if stable can then be seen yearly. However, if any progression or change in symptoms patient will contact us immediately for sooner evaluation. Pt agrees with plan. Note that MRI images were reviewed with pt during visit as well as prior labs workup. Aaron El MD Patient inappropriately scheduled with primary care team, as specialist is following patient for complaints of memory loss. Further treatment is to be followed up with neurologist d/t tests/procedures/medicat ions that may need to be started per neurologist's [facility] notes. Vee Giraldo MA Allergies As of Date: 08/10/2023 Noted Allergy Reaction MELOXICAM 10/07/2017 14 - Other: See Comments Comments: Groggy BACTRIM (SULFAMETHOXAZOLE) 08/03/2013 14 - Other: See Comments Comments: thrush NIACIN 03/28/2022 5 - Intolerance Comments: tachycardia TRIMETHOPRIM 09/27/2021 14 - Other: See Comments Date Reviewed: 04/10/2023 Reviewed by: Aaron El Jr., MD - Fully Assessed Reason for Visit: Appointment [186] Cmt: Emanuel appt 08/11/23-inappropriately scheduled. Prescriptions as of 08/11/2023 - atorvastatin (LIPITOR) 20 mg tablet take 1 tablet by mouth once daily at bedtime for cholesterol - omeprazole (PRILOSEC) 40 mg capsule Take 1 capsule by mouth once daily. - predniSONE (DELTASONE) 5 mg tablet Take 1-2 tablets by mouth once daily. - Terazosin HCl (HYTRIN) 10 mg capsule Take 1 capsule by mouth once daily. - Cnoquso-Ylsbcyrfr-Nofa tab Calcium 1200 mg once daily. Magnesium 500 mg once daily Zinc - 50 mg once daily. - Ascorbic Acid (VITAMIN C) 1,000 mg tablet Take 1 tablet by mouth once daily. - Cyanocobalamin (VITAMIN B-12) 1,000 mcg TbER Take 1 mcg by mouth once daily. - pyridoxine, vitamin B6, (VITAMIN B-6) 100 mg tablet Take 1 tablet by mouth once daily. 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] 03/31/2006 DIARRHEA NOS [R19.7] CHRONIC LIVER DIS NOS [K76.9] 06/10/2006 CHRONIC RHINITIS [J31.0] 07/16/2006 Hypogonadism male [E29.1] 03/19/2009 Rheumatoid arthritis with rheumatoid factor (HC*07/23/2013 Genital herpes simplex [A60.00] 06/22/2014 Benign prostatic hyperplasia [N40.0] 10/04/2015 GERD without esophagitis [K21.9] 02/06/2021 Encounter Status:Closed by VEE GIRALDO on 08/11/23 Normal [facility] CBC W Auto Differential pane l (Bld)on 03-27-2022 Basophils (Bld) [#/Vol] 0.08 10*3/uL <0.11 k/uL [facility] Basophils/100 WBC (Bld) 1.1 % [facility] Differential cell count method Nom (Bld) Auto [facility] Eosinophils (Bld) [#/Vol] 0.28 10*3/uL <0.46 k/uL [facility] Eosinophils/100 WBC (Bld) 3.9 % [facility] Erythrocyte distribution width (RBC) [Ratio] 12.8 % 11.5 - 15.0 % [facility] Hematocrit (Bld) [Volume fraction] 43.4 % 39.0 - 51.0 % [facility] Hemoglobin (Bld) [Mass/Vol] 15.1 g/dL 13.0 - 17.0 g/dL [facility] Immature granulocytes (Bld) [#/Vol] <0.10 k/uL [facility] Immature granulocytes/100 WBC (Bld) 0.3 % [facility] Lymphocytes (Bld) [#/Vol] 2.87 10*3/uL 1.00 - 4.00 k/uL [facility] Lymphocytes/100 WBC (Bld) 39.8 % [facility] MCH (RBC) [Entitic mass] 31.7 pg 26.0 - 34.0 pg [facility] MCHC (RBC) [Mass/Vol] 34.8 g/dL 30.5 - 36.0 g/dL [facility] MCV (RBC) [Entitic vol] 91.2 fL 80.0 - 100.0 fL [facility] Monocytes (Bld) [#/Vol] 0.78 10*3/uL <0.87 k/uL [facility] Monocytes/100 WBC (Bld) 10.8 % [facility] Neutrophils (Bld) [#/Vol] 3.18 10*3/uL 1.45 - 7.50 k/uL [facility] Neutrophils/100 WBC (Bld) 44.1 % [facility] Nucleated RBC (Bld) [#/Vol] <0.01 k/uL [facility] Nucleated RBC/100 WBC (Bld) [Ratio] 0.0 /100 WBC [facility] Platelet mean volume (Bld) [Entitic vol] 9.4 fL 9.0 - 12.7 fL [facility] Platelets (Bld) [#/Vol] 206 10*3/uL 150 - 400 k/uL [facility] RBC (Bld) [#/Vol] 4.76 10*6/uL 4.20 - 6.0 0 m/uL [facility] WBC (Bld) [#/Vol] 7.21 10*3/uL 3.70 - 11. 00 k/uL [facility] Comprehensive metabolic 2000 panelon 03-27-2022 Albumin [Mass/Vol] 4.7 g/dL 3.9 - 4.9 g/dL [facility] ALP [Catalytic activity/Vol] 66 U/L 38 - 113 U/L [facility] ALT [Catalytic activity/Vol] 40 U/L 10 - 54 U/L [facility] Anion gap [Moles/Vol] 13 mmol/L 9 - 18 mmol/L [facility] AST [Catalytic activity/Vol] 27 U/L 14 - 40 U/L [facility] Bilirubin [Mass/Vol] 0.6 mg/dL 0.2 - 1 .3 mg/dL [facility] Calcium [Mass/Vol] 8.9 mg/dL 8.5 - 10. 2 mg/dL [facility] Chloride [Moles/Vol] 102 mmol/L 97 - 10 5 mmol/L [facility] CO2 [Moles/Vol] 23 mmol/L 22 - 30 mmol/L [facility] Creatinine [Mass/Vol] 0.94 mg/dL 0.73 - 1.22 mg/dL [facility] Estimated Glomerular Filtration Rate 89 mL/min/1.73m >=60 mL/min/1.73m [facility] Glucose [Mass/Vol] 101 mg/dL High 74 - 99 mg/dL [facility] Potassium [Moles/Vol] 3.9 mmol/L 3.7 - 5.1 mmol/L [facility] Protein [Mass/Vol] 7.3 g/dL 6.3 - 8.0 g/dL [facility] Sodium [Moles/Vol] 138 mmol/L 136 - 144 mmol/L [facility] Urea nitrogen [Mass/Vol] 18 mg/dL 9 - 24 mg/dL [facility] Laboratory - Chemistry and C hemistry - challengeOrdered By: Colleen Lema on 03-27-2022 Lipase [Catalytic activity/Vol] 103 U/L 73-393 [facility] Lipaseon 03-27-2022 Lipase [Catalytic activity/Vol] 103 U/L Normal 73-393 [facility] Comment on above: Performed By: #### L [id number] #### [facility] Laboratory [address] [place], [place], [id number] UA DIP, URINE (POC)on 2022 BILIRUBIN UA (POCT) Negative Negative [facility] CLARITY UA (POCT) Clear [facility] COLOR UA (POCT) Dark yellow [facility] GLUCOSE UA (POCT) Negative Negative mg/dL [facility] HEMOGLOBIN/BLOOD UA (POCT) Negative Negative [facility] KETONE UA (POCT) Negative Negative mg/dL [facility] LEUKOCYTES UA (POCT) Negative Negative [facility] NITRITE UA (POCT) Negative Negative [facility] PH UA (POCT) 5.5 4.5 - 8.0 [facility] Protein Ql (U) Negative Negative mg/dL [facility] SPECIFIC GRAVITY UA (POCT) 1.020 1.005 - 1.030 [facility] UROBILINOGEN UA (POCT) 0.2 E.U./dL Normal E.U./dL [facility] Emergency Department Summary on 09-28-2021 Emergency Department Summary [facility] Medical Records Department [address] [place] [address] Emergency Department Summary 09/28/21 MR#: [id number] Acct: [id number] Name: AARON ADLER Rep #: [id number] : 1955 65 From: Linda Edwards DO PCP: Dr. Adelita Marcano MD Status:DEP ER Location: ED HPI History of Present Illness Chief Complaint: General Illness Informant: patient Narrative Narrative: Patient is a 65-year-old male with history of acid reflux presenting with abdominal pain. Patient initially developed some flulike symptoms a week ago, felt better and then a couple days ago his symptoms returned. He has been having pain localized just to the right of his umbilicus. He notes it is worse after eating. Pain is more of a discomfort and aching in nature. Is been persistent. He denies associated nausea, vomiting, change in bowel movements or fever. Denies any urinary symptoms. Notes that when he was a teenager he was diagnosed with colonic spasms but states that felt different. Denies associated chest pain, shortness of breath or difficulty breathing. No other complaints at this time. PFSH PFSH Home Medications omeprazole 20 mg capsule,delayed release 20 mg PO DAILY 10/11/13 [History Last Taken Unknown] prednisone 10 mg tablet 5 mg PO DAILY 10/11/13 [History Last Taken Unknown] terazosin 5 mg capsule 5 mg PO QHS 10/11/13 [History Last Taken Unknown] etodolac 300 mg capsule 300 mg PO TIDCM PRN Pain ##30 10/12/13 [Rx Last Taken Unknown] hydrocodone-acetaminophe n 5-325mg 5mg-325mg 1 ea PO Q4H PRN PRN Pain #20 tabs 02/11/17 [Rx Last Taken Unknown] Allergy/AdvReac Type Severity Reaction Status Date / Time sulfamethoxazole Allergy Other Verified 09/27/21 17:21 [From Bactrim] trimethoprim [From Bactrim] Allergy Other Verified 09/27/21 17:21 Social History Smoking Status: Former smoker ROS ROS ED Constitutional Constitutional ED: Denies chills or fever(s) Eyes Eyes: Denies blurry vision ENT ENT ED: Denies rhinorrhea or sore throat Cardiovascular Cardiovascular: Denies chest pain or palpitations Respiratory/Chest Respiratory/Chest: Denies cough or dyspnea Gastrointestinal Gastrointestinal: Reports abdominal pain and diarrhea; Denies constipation, nausea or vomiting Genitourinary Genitourinary ED: Denies dysuria or hematuria Musculoskeletal Musculoskeletal: Denies arthralgias or back pain Integumentary Denies rash Neurologic Neurologic: Denies headache(s) Psychiatric Psychiatric: Denies anxiety EXAM Physical Exam Const Vital Signs: 09/27/21 17:19 09/27/21 19:39 09/27/21 19:39 Temperature 97.8 F Temperature Source Temporal Pulse Rate 71 67 Respiratory Rate 16 16 Respiratory Effort Normal Respiratory Pattern Normal Blood Pressure 147/100 H 173/103 H Blood Pressure Mean 115 126 Pulse Ox 96 99 Oxygen Delivery Method Room Air Room Air 09/27/21 21:02 09/28/21 00:31 Temperature Temperature Source Pulse Rate 71 Respiratory Rate 16 16 Respiratory Effort Respiratory Pattern Blood Pressure 147/100 H Blood Pressure Mean Pulse Ox 96 Oxygen Delivery Method Positive well nourished and well developed General Appearance ED: well developed and NAD HEENT Reports dry mucous membranes Mouth ED: Yes dry mucous membranes Mouth: dry mucous membranes Neck supple and no JVD Chest Wall inspection of chest normal and palpation of chest normal Resp normal respiratory effort and clear to auscultation bilaterally Cardio regular rate, regular rhythm and no murmurs GI normal to inspection, nondistended, normoactive bowel sounds and non-tender GI Narrative: Patient points to well-circumscribed 3 cm area just to the right of his umbilicus as the area of his pain however its not reproducible with direct palpation. Palpation: Negative for guarding Back/Spine no CVA tenderness Extremity normal to inspection General Extremety ED: Negative for edema General Extremity: Negative for edema Neuro oriented x3 Motor Exam: Negative for general weakness Psych mental status grossly normal Skin no rashes or lesions noted and no wounds MDM MDM MDM Narrative Medical decision making narrative: Patient evaluated for 1 week of intermittent right-sided abdominal pain as well as some flulike symptoms. Patient appears nontoxic and in no acute distress. Vital signs are significant only for some mild hypertension. COVID test is negative. Patient denies any associated chest pain, shortness of breath or difficulty breathing. Have a low suspicion for referred ACS pain however EKG is obtained. EKG does show sinus bradycardia with a left bundle branch block. Patient has progression from nonspecific intraventricular condu (more content not included)... Normal [facility] 12 Lead EKGon 09-27-2021 12 Lead EKG [facility] Cardiovascular Services [address] [place] [address] 12 Lead EKG 09/27/21 2107 MR#: [id number] Acct: [id number] Name: AARON ADLER Rep #: [id number] : 1955 65 From: Zenon Trujillo MD Attending Dr: Status: DEP ER Ordering Dr: Linda Edwards DO Date: 09/27/21 Location: ED Sex: M C Admitted: Test Reason : DYSRHYTHMIA Blood Pressure : / mmHG Vent. Rate : 056 BPM Atrial Rate : 056 BPM P-R Int : 188 ms QRS Dur : 156 ms QT Int : 478 ms P-R-T Axes : 049 -21 064 degrees QTc Int : 461 ms Sinus bradycardia Left bundle branch block Abnormal ECG Confirmed by FELIX HERNANDEZ, ZENON ([id number]), video editor VANESSA SOUZA ([id number]) on 10/01/2021 7:49:36 AM Referred By: CG Confirmed By:ZENON TRUJILLO MD 10/01/21 0749 Date Zenon Trujillo MD CC: Dr. Linda Edwards DO; Dr. Adelita Marcano MD Signed Normal [facility] Absolute lymphocyte counton 09-27-2021 Lymphocytes Auto (Unsp spec) [#/Vol] 1.36 10*3/uL 0.83-4.51 [facility] Work Phone: Basophil percentageon 2021 Basophil percentage 0 SEEN /hpf 0-5 [facility] Work Phone: Basophils/100 WBC (Bld) 1.3 % 0-1 [facility] Work Phone: Bilirubin [Mass/Vol] 0.60 mg/dL 0.20-1.00 [facility] Work Phone: Comment on above: For patients on eltr ombopag therapy, use of Dimension [place] TBIL is not recommended. Chloride [Moles/Vol] 110 mmol/L 98-107 [facility] Work Phone: Eosinophils/100 WBC (Bld) 0.6 % 0-5 [facility] Work Phone: Glucose [Mass/Vol] 110 mg/dL 74-106 [facility] Work Phone: Comment on above: Fasting Glucose resu lt from 100 to 125 mg/dL suggests IMPAIRED HOMEOSTASIS per A.D.A. criteria. Neutrophils (Bld) [#/Vol] 4.4 10*3/uL 2.0-7.7 [facility] Work Phone: Neutrophils/100 WBC (Bld) 69.8 % 47-70 [facility] Work Phone: Potassium [Moles/Vol] 4.1 mmol/L 3.5-5.1 [facility] Work Phone: Protein [Mass/Vol] 7.8 g/dL 6.4-8.2 [facility] Work Phone: [phone] Sodium [Moles/Vol] 140 mmol/L 136-145 [facility] Work Phone: [phone] WBC (Bld) [#/Vol] 6.3 10*3/uL 4.4-11.0 [facility] Work Phone: Bilirubin Test strip Ql (U)o n 09-27-2021 Bilirubin Ql (U) Negative Negative [facility] Work Phone: Blood erythrocytes count (nu mber/volume)on 09-27-2021 RBC (Bld) [#/Vol] 4.84 10*6/uL 4.6-6.2 [facility] Work Phone: Blood hemoglobin measurement (mass/volume)on 09-27-2021 Hemoglobin (Bld) [Mass/Vol] 15.1 g/dL 13.0-16.5 [facility] Work Phone: Blood lymphocytes/100 leukoc yteson 09-27-2021 Lymphocytes/100 WBC (Bld) 21.6 % 19-41 [facility] Work Phone: [phone] Blood monocytes/100 leukocyt eson 09-27-2021 Monocytes/100 WBC (Bld) 6.2 % 0-10 [facility] Work Phone: Blood platelet mean volumeon 09-27-2021 Platelet mean volume (Bld) [Entitic vol] 8.7 fL 6.2-12.0 [facility] Work Phone: CBC W/Diff, Automatedon 09-09 Absolute Lymph 1.36 X10 3/uL Normal 0.83-4.51 [facility] Comment on above: Performed By: #### L 501.2450, L500.4050, L100.0100 #### [facility] [address] [place], [address] Absolute Neut 4.4 X10 3/uL Normal 2.0-7.7 [facility] Comment on above: Performed By: #### L [id number], L500.4050, L100.0100 #### [facility] [address] [place], [address] Basophils/100 WBC (Bld) 1.3 % High 0-1 [facility] Comment on above: Performed By: #### L [id number], L500.4050, L100.0100 #### [facility] [address] [place], [address] Eosinophils/100 WBC (Bld) 0.6 % Normal 0-5 [facility] Comment on above: Performed By: #### L 501.2450, L500.4050, L100.0100 #### [facility] [address] [place], [address] Erythrocyte distribution width (RBC) [Ratio] 12.6 % Normal 11.6-14.6 [facility] Comment on above: Performed By: #### L 501.2450, L500.4050, L100.0100 #### [facility] [address] [place], [address] Hematocrit (Bld) [Volume fraction] 44.3 % Normal 40-54 [facility] Comment on above: Performed By: #### L 501.2450, L500.4050, L100.0100 #### [facility] [address] [place], [address] Hemoglobin (Bld) [Mass/Vol] 15.1 g/dL Normal 13.0-16.5 [facility] Comment on above: Performed By: #### L 501.2450, L500.4050, L100.0100 #### [facility] [address] [place], [address] IG% 0.500 Normal 0.0-0.9 [facility] Comment on above: Result Comment: IG% - Immature Granulocytes (promyelocytes, myelocytes and metamyelocytes) > 1% indicates that a LEFT SHIFT is Present. Performed By: #### L 501.2450, L500.4050, L100.0100 #### [facility] [address] [place], [address] Lymphocytes/100 WBC (Bld) 21.6 % Normal 19-41 [facility] Comment on above: Performed By: #### L 501.2450, L500.4050, L100.0100 #### [facility] [address] [place], [address] MCH (RBC) [Entitic mass] 31.2 pg Normal 27.0-32.0 [facility] Comment on above: Performed By: #### L 501.2450, L500.4050, L100.0100 #### [facility] [address] [place], [address] MCHC (RBC) [Mass/Vol] 34.1 g/dL Normal 32-36 [facility] Comment on above: Performed By: #### L 501.2450, L500.4050, L100.0100 #### [facility] [address] [place], [address] MCV (RBC) [Entitic vol] 91.5 fL Normal 80-94 [facility] Comment on above: Performed By: #### L 501.2450, L500.4050, L100.0100 #### [facility] [address] [place], [address] Monocytes/100 WBC (Bld) 6.2 % Normal 0-10 [facility] Comment on above: Performed By: #### L 501.2450, L500.4050, L100.0100 #### [facility] [address] [place], [address] Neutrophils/100 WBC (Bld) 69.8 % Normal 47-70 [facility] Comment on above: Performed By: #### L 501.2450, L500.4050, L100.0100 #### [facility] [address] [place], [address] Nucleated RBC (Bld) [#/Vol] 0 10*3/uL Normal 0-5 [facility] Comment on above: Performed By: #### L 501.2450, L500.4050, L100.0100 #### [facility] [address] [place], [address] Platelet mean volume (Bld) [Entitic vol] 8.7 fL Normal 6.2-12.0 [facility] Comment on above: Performed By: #### L 501.2450, L500.4050, L100.0100 #### [facility] [address] [place], [address] Platelets (Bld) [#/Vol] 204 10*3/uL Normal 150-450 [facility] Comment on above: Performed By: #### L 501.2450, L500.4050, L100.0100 #### [facility] [address] [place], [address] RBC (Bld) [#/Vol] 4.84 10*6/uL Normal 4.6-6.2 [facility] Comment on above: Performed By: #### L 501.2450, L500.4050, L100.0100 #### [facility] [address] [place], [address] RDW SD 42.6 fl Normal 35.1-43.9 [facility] Comment on above: Performed By: #### L 501.2450, L500.4050, L100.0100 #### [facility] [address] [place], [address] WBC (Bld) [#/Vol] 6.3 10*3/uL Normal 4.4-11.0 [facility] Comment on above: Performed By: #### L 501.2450, L500.4050, L100.0100 #### [facility] [address] [place], [address] Chest PA and Lateralon 09-27 Chest PA and Lateral [facility] Imaging Services [address] [place] [address] Chest PA and Lateral MR#: [id number] Acct: [id number] Name: AARON ADLER Rep #: [id number] : 1955 M 65 From: Gabino Durant MD PCP: Dr. Adelita Marcano MD Status: DEP ER Study: Chest PA and Lateral Date of Exam: 09/27/21 Exam# [id number] Ordering Dr: Linda Edwards DO EXAM: XR CHEST, 2 VIEWS CLINICAL INDICATION: cough TECHNIQUE: Frontal and lateral views of the chest. This report was created using [employer] report generation technology. COMPARISON: None. FINDINGS: LUNGS AND PLEURAL SPACES: Unremarkable. No consolidation or edema. No pneumothorax. No effusion. HEART: Unremarkable. Cardiac silhouette not enlarged. MEDIASTINUM: Central airways and mediastinal contour are unremarkable. BONES/JOINTS: Degenerative changes of the acromioclavicular joints. SOFT TISSUES: Unremarkable. VASCULATURE: Atherosclerotic calcifications of the nonenlarged thoracic aortic arch. RAD/Chest PA and Lateral IMPRESSION: No acute disease. Electronically Signed: Gabino Durant MD at 21:38 EDT , CC: Dr. Linda Edwards DO; Dr. Adelita Marcano MD Pharmacist Manager: Signed Normal [facility] Comprehensive Metabolic Prof [facility] 09-27-2021 Albumin [Mass/Vol] 4.0 g/dL Normal 3.2-5.0 [facility] Comment on above: Performed By: #### L 501.2450, L500.4050, L100.0100 #### [facility] [address] [place], [address] Albumin/Globulin [Mass ratio] 1.1 {ratio} Normal 0.9-2.4 [facility] Comment on above: Performed By: #### L 501.2450, L500.4050, L100.0100 #### [facility] [address] [place], [address] ALK P 56 U/L Normal 45-117 [facility] Comment on above: Performed By: #### L 501.2450, L500.4050, L100.0100 #### [facility] [address] [place], [address] ALT [Catalytic activity/Vol] 32 U/L Normal 16-61 [facility] Comment on above: Performed By: #### L 501.2450, L500.4050, L100.0100 #### [facility] [address] [place], [address] AST [Catalytic activity/Vol] 22 U/L Normal 15-37 [facility] Comment on above: Performed By: #### L 501.2450, L500.4050, L100.0100 #### [facility] [address] [place], [address] Bilirubin [Mass/Vol] 0.60 mg/dL Normal 0.20-1.00 [facility] Comment on above: Result Comment: For patients on eltrombopag therapy, use of Dimension Milton TBIL is not recommended. Performed By: #### L 501.2450, L500.4050, L100.0100 #### [facility] [address] [place], [address] BUN/CRE 13.5 RATIO Normal 10-20 [facility] Comment on above: Performed By: #### L 501.2450, L500.4050, L100.0100 #### [facility] [address] [place], [address] CA,Total 9.2 mg/dL Normal 8.5-10.1 [facility] Comment on above: Performed By: #### L 501.2450, L500.4050, L100.0100 #### [facility] [address] [place], [address] Chloride [Moles/Vol] 110 mmol/L High 98-107 [facility] Comment on above: Performed By: #### L 501.2450, L500.4050, L100.0100 #### [facility] [address] [place], [address] CO2 [Moles/Vol] 23.0 mmol/L Normal 21.0-32.0 [facility] Comment on above: Performed By: #### L 501.2450, L500.4050, L100.0100 #### [facility] [address] [place], [address] Creatinine [Mass/Vol] 0.89 mg/dL Normal 0.70-1.30 [facility] Comment on above: Result Comment: The validity of the calculated GFR GFRAA in patients over 70 years has not been determined. Clinical correlation is essential. Performed By: #### L 501.2450, L500.4050, L100.0100 #### [facility] [address] [place], [address] ECRCL 84.30 ml/min Normal [facility] Comment on above: Performed By: #### L 501.2450, L500.4050, L100.0100 #### [facility] [address] [place], [address] EST GFR - AA 110 mL/min Normal >60 [facility] Comment on above: Result Comment: Afri can Cypriot GFR Calc Performed By: #### L 501.2450, L500.4050, L100.0100 #### [facility] [address] [place], [address] GAP 7 Normal 5-15 [facility] Comment on above: Performed By: #### L 501.2450, L500.4050, L100.0100 #### [facility] [address] [place], [address] GFR/1.73 sq M.predicted among non-blacks MDRD (S/P/Bld) [Vol rate/Area] 91 mL/min/{1.73_m2} Normal >60 [facility] Comment on above: Result Comment: Non- GFR Calc Performed By: #### L 501.2450, L500.4050, L100.0100 #### [facility] [address] [place], [address] Globulin (S) [Mass/Vol] 3.8 g/dL Normal 2.2-4.2 [facility] Comment on above: Performed By: #### L 501.2450, L500.4050, L100.0100 #### [facility] [address] [place], [address] Glucose [Mass/Vol] 110 mg/dL High 74-106 [facility] Comment on above: Result Comment: Fast ing Glucose result from 100 to 125 mg/dL suggests IMPAIRED HOMEOSTASIS per A.D.A. criteria. Performed By: #### L 501.2450, L500.4050, L100.0100 #### [facility] [address] [place], [address] Potassium [Moles/Vol] 4.1 mmol/L Normal 3.5-5.1 [facility] Comment on above: Performed By: #### L 501.2450, L500.4050, L100.0100 #### [facility] [address] [place], [address] Sodium [Moles/Vol] 140 mmol/L Normal 136-145 [facility] Comment on above: Performed By: #### L 501.2450, L500.4050, L100.0100 #### [facility] [address] [place], [address] T PROT 7.8 g/dL Normal 6.4-8.2 [facility] Comment on above: Performed By: #### L 501.2450, L500.4050, L100.0100 #### [facility] [address] [place], [address] Urea nitrogen [Mass/Vol] 12 mg/dL Normal 7-18 [facility] Comment on above: Performed By: #### L 501.2450, L500.4050, L100.0100 #### [facility] [address] [place], [address] Determination of erythrocyte mean corpuscular volume (MCV)on 09-27-2021 MCV (RBC) [Entitic vol] 91.5 fL 80-94 [facility] Work Phone: Hematocrit Auto (Bld) [Volum e fraction]on 09-27-2021 Hematocrit (Bld) [Volume fraction] 44.3 % 40-54 [facility] Work Phone: Ketones Test strip Ql (U)on 09-27-2021 Ketones Ql (U) 15 mg/dl Negative [facility] Work Phone: [id number] 09-27-2021 TROPONIN-I HS 5 pg/mL Normal 3.0-78.0 [facility] Comment on above: Order Comment: 'TROP ' Serial specimen #1, #2 or #3: 1 Result Comment: Plea se Note: New Test Units and Gender Specific Reference Ranges. For more information see Policy Stat Procedure Milton High Sensitivity Troponin (TNIH) and attachments. Performed By: #### L 501.4025 #### [facility] [address] [place], [place], [id number] Laboratory - Chemistry and C hemistry - challengeon 09-27-2021 ALP [Catalytic activity/Vol] 56 U/L 45-117 [facility] Work Phone: ALT [Catalytic activity/Vol] 32 U/L 16-61 [facility] Work Phone: CO2 [Moles/Vol] 23.0 mmol/L 21.0-32.0 [facility] Work Phone: Globulin (S) [Mass/Vol] 3.8 g/dL 2.2-4.2 [facility] Work Phone: [phone] Lipase [Catalytic activity/Vol] 96 U/L 73-393 [facility] Work Phone: Urea nitrogen/Creatinine [Mass ratio] 13.5 mg/mg 10-20 [facility] Work Phone: Laboratory - Hematology and Cell countson 09-27-2021 Erythrocyte distribution width (RBC) [Entitic vol] 42.6 fL 35.1-43.9 [facility] Work Phone: Erythrocyte distribution width (RBC) [Ratio] 12.6 % 11.6-14.6 [facility] Work Phone: Immature granulocytes/100 WBC (Bld) 0.500 % 0.0-0.9 [facility] Work Phone: Comment on above: IG% - Immature Granu locytes (promyelocytes, myelocytes and metamyelocytes) > 1% indicates that a LEFT SHIFT is Present. MCH (RBC) [Entitic mass] 31.2 pg 27.0-32.0 [facility] Work Phone: Nucleated RBC/100 WBC (Bld) [Ratio] 0 % 0-5 [facility] Work Phone: Lipaseon 09-27-2021 Lipase [Catalytic activity/Vol] 96 U/L Normal 73-393 [facility] Comment on above: Performed By: #### L 501.2450, L500.4050, L100.0100 #### [facility] [address] [place], [place], [id number] M101.0111on 09-27-2021 M101.0111 *Negative results fr om patients with symptom onset beyond five days should be treated as presumptive and confirmed by a molecular assay if clinically necessary. Negative results should not be used as the sole basis for treatment or for patient management. FLUABV+SARS-CoV2 Ag Pnl Up resp IA.rapid *Positive results do not differentiate between SARS-CoV and SARS-CoV-2. FLUABV+SARS-CoV2 Ag Pnl Up resp IA.rapid Negative Influenza results should be confirmed with FLU PANEL MOLECULAR if indicated. FLUABV+SARS-CoV2 Ag Pnl Up resp IA.rapid * This test has not been FDA cleared or approved; the test has been authorized by FDA under an Emergency Use Authorization (EAU) for use by laboratories certified under CLIA that meet the requirements to perform moderate, high, or waived complexity tests. FLUABV+SARS-CoV2 Ag Pnl Up resp IA.rapid Normal Reference Range: Negative Rossy, ISIDRA method SARS-CoV-2 (COVID 19) Negative Influenza Ag, Direct Presumptive NEGATIVE for Influenza A/B Antigen (See Note) Normal [facility] Comment on above: Performed By: #### M 101.0111 #### [facility] [address] [place], [place], [id number] MCHC Auto (RBC) [Mass/Vol]on 09-27-2021 MCHC (RBC) [Mass/Vol] 34.1 g/dL 32-36 [facility] Work Phone: Mucus LM Ql (Urine sed)on Mucus Ql (Urine sed) 0 SEEN /hpf [facility] Work Phone: Nitrite Test strip Ql (U)on 09-27-2021 Nitrite Ql (U) Negative Negative [facility] Work Phone: No Panel Informationon 09-27 Estimated Creatinine Clearance Calc 84.30 ml/min [facility] Work Phone: Estimated GFR (MDRD) Amer 110 mL/min >60 [facility] Work Phone: Comment on above: GFR Calc Estimated GFR (MDRD) Non-Af Amer 91 mL/min >60 [facility] Work Phone: Comment on above: Non- GFR Calc Troponin I High Sensitivity 5 pg/mL 3.0-78.0 [facility] Work Phone: Comment on above: Please Note: New Marissa t Units and Gender Specific Reference Ranges. For more information see Policy Stat Procedure [place] High Sensitivity Troponin (TNIH) and attachments. Platelets bldon 09-27-2021 Platelets (Bld) [#/Vol] 204 10*3/uL 150-450 [facility] Work Phone: Protein Test strip Ql (U)on 09-27-2021 Protein Ql (U) Negative Negative [facility] Work Phone: Serum or plasma albumin maylin urement (mass/volume)on 09-27-2021 Albumin [Mass/Vol] 4.0 g/dL 3.2-5.0 [facility] Work Phone: Serum or plasma albumin/glob ulin mass ratioon 09-27-2021 Albumin/Globulin [Mass ratio] 1.1 {ratio} 0.9-2.4 [facility] Work Phone: Serum or plasma calcium maylin urement (mass/volume)on 09-27-2021 Calcium [Mass/Vol] 9.2 mg/dL 8.5-10.1 [facility] Work Phone: Serum or plasma creatinine m easurement (mass/volume)on 09-27-2021 Creatinine [Mass/Vol] 0.89 mg/dL 0.70-1.30 [facility] Work Phone: Comment on above: The validity of the calculated GFR & GFRAA in patients over 70 years has not been determined. Clinical correlation is essential. Serum or plasma urea nitroge n measurement (mass/volume)on 09-27-2021 Urea nitrogen [Mass/Vol] 12 mg/dL 7-18 [facility] Work Phone: Squamous epithelial cells de tection in urine sediment by light microscopyon 09-27-2021 Epithelial cells.squamous LM Ql (Urine sed) 0 SEEN /hpf 0-5 [facility] Work Phone: Thin prep Papanicolaou smear with manual screeningon 09-27-2021 Thin prep Papanicolaou smear with manual screening 22 U/L 15-37 [facility] Work Phone: Thin prep Papanicolaou smear with manual screening 7 5-15 [facility] Work Phone: Urinalysis, Completeon 09-27 BACTERIA RARE Normal None Seen [facility] Comment on above: Order Comment: SITA CTOR TO SPECIFY Performed By: #### L 400.0001 #### [facility] [address] [place], [address] EPI,SQUAMOUS 0 SEEN Normal 0-5 [facility] Comment on above: Order Comment: SITA CTOR TO SPECIFY Performed By: #### L 400.0001 #### [facility] [address] [place], [address] Mucus Ql (Urine sed) 0 SEEN Normal [facility] Comment on above: Order Comment: SITA CTOR TO SPECIFY Performed By: #### L 400.0001 #### [facility] [address] [place], [address] RBC 0 SEEN Normal 0-5 [facility] Comment on above: Order Comment: SITA CTOR TO SPECIFY Performed By: #### L 400.0001 #### [facility] [address] [place], [address] WBC 0 SEEN Normal 0-5 [facility] Comment on above: Order Comment: SITA CTOR TO SPECIFY Performed By: #### L 400.0001 #### [facility] [address] [place], [address] Urine blood detectionon 09-09 RBC Ql (U) Negative Negative [facility] Work Phone: RBC Ql (U) 0 SEEN /hpf 0-5 [facility] Work Phone: Urine clarityon 09-27-2021 Clarity (U) Clear Clear [facility] Work Phone: Urine color determinationon 09-27-2021 Color (U) Yellow Yellow [facility] Work Phone: Urine glucose detectionon Glucose Ql (U) Normal mg/dl Normal [facility] Work Phone: Urine leukocyte esterase det ection by dipstickon 09-27-2021 Leukocyte esterase Test strip Ql (U) Negative Negative [facility] Work Phone: Urine pHon 09-27-2021 pH (U) 6.0 [pH] 5.0 - 8.0 [facility] Work Phone: Urine sediment bacteria coun t by microscopy (number/high power field)on 09-27-2021 Bacteria LM.HPF (Urine sed) [#/Area] RARE /hpf None Seen [facility] Work Phone: Urine specific gravity measu rementon 09-27-2021 Specific gravity (U) [Rel density] 1.010 1.002-1.030 [facility] Work Phone: Urobilinogen Auto test strip Ql (U)on 09-27-2021 Urobilinogen Ql (U) Normal mg/dl Normal [facility] Work Phone: XR Knee - right 4 Viewson IMPRESSION: Medial compartmental joint space narrowing similar to prior study. Pharmacist Manager: [facility] Transcribe Date/Time: Jan 18 2020 1:36P Dictated by : MIKAYLA HAZEL MD This examination was interpreted and the report reviewed and electronically signed by: MIKAYLA HAZEL MD on Jan 18 2020 1:39PM [facility] DIVISION OF RADIOLOGY * * *Final Report* * * DATE OF EXAM: Jan 18 2020 1:24PM WOX 5203 - XR KNEE 4V AP/PA BOTH+LAT/FAY RT / PROCEDURE REASON: multiple diagnoses * * * * Physician Interpretation * * * * EXAM TITLE: XR KNEE 4V AP/PA BOTH+LAT/FAY RT EXAM DATE/TIME: 01/18/2020 1:24 PM COMPARISON: Knee x-ray on 08/26/2017 CLINICAL INDICATION/HISTORY: Chronic knee pain. TECHNIQUE: AP/PA, lateral and sunrise views of the right knee are presented. FINDINGS: Medial compartmental joint space narrowing is again demonstrated, similar to prior study. No significant osteophyte formation. No acute fractures or subluxation. There appears be mild varus deformity. No joint effusion. The soft tissue is within normal limits. DIVISION OF RADIOLOGY Provider, Viry Carballo [facility] - 01/18/2020 * * *Final Report* * * DATE OF EXAM: Jan 18 2020 1:24PM WOX 5203 - XR KNEE 4V AP/PA BOTH+LAT/FAY RT / PROCEDURE REASON: multiple diagnoses * * * * Physician Interpretation * * * * EXAM TITLE: XR KNEE 4V AP/PA BOTH+LAT/FAY RT EXAM DATE/TIME: 01/18/2020 1:24 PM COMPARISON: Knee x-ray on 08/26/2017 CLINICAL INDICATION/HISTORY: Chronic knee pain. TECHNIQUE: AP/PA, lateral and sunrise views of the right knee are presented. FINDINGS: Medial compartmental joint space narrowing is again demonstrated, similar to prior study. No significant osteophyte formation. No acute fractures or subluxation. There appears be mild varus deformity. No joint effusion. The soft tissue is within normal limits. IMPRESSION IMPRESSION: Medial compartmental joint space narrowing similar to prior study. Pharmacist Manager: [facility] Transcribe Date/Time: Jan 18 2020 1:36P Dictated by : MIKAYLA HAZEL MD This examination was interpreted and the report reviewed and electronically signed by: MIKAYLA HAZEL MD on Jan 18 2020 1:39PM EST [facility] Radiology Study observation (narrative) [facility] XR Knee - right 4 ViewsOrder ed By: [facility] Provider on 01-18-2020 [facility] No Panel Information SARS-CoV-2 & FLU Antigen (Rapid) [facility] Work Phone: Vital Signs Date Time Vital Sign Value Performing Clinician Facility 05-03-2024 15:31-0400 Body mass index (BMI) [Ratio] 39.21 kg/m2 Adelita Marcano MD Work Phone: [facility] 05-03-2024 15:31-0400 Body weight 119.4 kg Adelita Marcano MD Work Phone: [facility] 05-03-2024 15:31-0400 Diastolic blood pressure 84 mm[Hg] Adelita Marcano MD Work Phone: [facility] 05-03-2024 15:31-0400 Heart rate 76 /min Adelita Marcano MD Work Phone: [facility] 05-03-2024 15:31-0400 Respiratory rate 18 /min Adelita Marcano MD Work Phone: [facility] 05-03-2024 15:31-0400 Systolic blood pressure 130 mm[Hg] Adelita Marcano MD Work Phone: [facility] 10-26-2023 14:35-0400 Diastolic blood pressure 84 mm[Hg] Cindy Haagen SUPERVISOR DIE CASTING.BLANKER OPERATOR Work Phone: [facility] 10-26-2023 14:35-0400 Heart rate 83 /min Cindy Haagen SUPERVISOR DIE CASTING.BLANKER OPERATOR Work Phone: [facility] 10-26-2023 14:35-0400 Respiratory rate 16 /min Cindy Haagen SUPERVISOR DIE CASTING.BLANKER OPERATOR Work Phone: [facility] 10-26-2023 14:35-0400 SaO2% (BldA) [Mass fraction] 94 % Cindy Haagen SUPERVISOR DIE CASTING.BLANKER OPERATOR Work Phone: [facility] 10-26-2023 14:35-0400 Systolic blood pressure 122 mm[Hg] Cindy Haagen SUPERVISOR DIE CASTING.BLANKER OPERATOR Work Phone: [facility] 08-20-2023 12:29-0400 Body mass index (BMI) [Ratio] 37.09 kg/m2 Laurie Esteves SUPERVISOR DIE CASTING.BLANKER OPERATOR Work Phone: [facility] 08-20-2023 12:29-0400 Body weight 112.95 kg Laurie Esteves SUPERVISOR DIE CASTING.BLANKER OPERATOR Work Phone: [facility] 08-20-2023 12:29-0400 Diastolic blood pressure 82 mm[Hg] Laurie Rezahof SUPERVISOR DIE CASTING.BLANKER OPERATOR Work Phone: [facility] 08-20-2023 12:29-0400 Heart rate 84 /min Laurie Barbosaf SUPERVISOR DIE CASTING.BLANKER OPERATOR Work Phone: [facility] 08-20-2023 12:29-0400 Respiratory rate 16 /min Laurie Tannhof SUPERVISOR DIE CASTING.BLANKER OPERATOR Work Phone: [facility] 08-20-2023 12:29-0400 SaO2% (BldA) [Mass fraction] 94 % Laurie Esteves SUPERVISOR DIE CASTING.BLANKER OPERATOR Work Phone: [facility] 08-20-2023 12:29-0400 Systolic blood pressure 112 mm[Hg] Laurie Esteves SUPERVISOR DIE CASTING.BLANKER OPERATOR Work Phone: [facility] 08-18-2023 17:13-0400 Body mass index (BMI) [Ratio] 37.21 kg/m2 Cosmo Villalobos SUPERVISOR DIE CASTING.BLANKER OPERATOR Work Phone: [facility] 08-18-2023 17:13-0400 Body temperature 97.81 [degF] Cosmo Villalobos SUPERVISOR DIE CASTING.BLANKER OPERATOR Work Phone: [facility] 08-18-2023 17:13-0400 Body weight 113.3 kg Cosmo Villalobos SUPERVISOR DIE CASTING.BLANKER OPERATOR Work Phone: [facility] 08-18-2023 17:13-0400 Diastolic blood pressure 83 mm[Hg] Cosmo Andrewslesinan SUPERVISOR DIE CASTING.BLANKER OPERATOR Work Phone: [facility] 08-18-2023 17:13-0400 Heart rate 80 /min Cosmo Villalobos SUPERVISOR DIE CASTING.BLANKER OPERATOR Work Phone: [facility] 08-18-2023 17:13-0400 Respiratory rate 18 /min Cosmo Villalobos SUPERVISOR DIE CASTING.BLANKER OPERATOR Work Phone: [facility] 08-18-2023 17:13-0400 SaO2% (BldA) [Mass fraction] 95 % Cosmo Villalobos SUPERVISOR DIE CASTING.BLANKER OPERATOR Work Phone: [facility] 08-18-2023 17:13-0400 Systolic blood pressure 149 mm[Hg] Cosmo Andrewslesinan SUPERVISOR DIE CASTING.BLANKER OPERATOR Work Phone: [facility] 04-10-2023 15:25-0500 Body weight 114.85 kg Aaron El Jr., MD Work Phone: [facility] 04-10-2023 15:25-0500 Diastolic blood pressure 88 mm[Hg] Aaron El Jr., MD Work Phone: [facility] 04-10-2023 15:25-0500 Heart rate 94 /min Aaron El Jr., MD Work Phone: [facility] 04-10-2023 15:25-0500 Respiratory rate 18 /min Aaron El Jr., MD Work Phone: [facility] 04-10-2023 15:25-0500 SaO2% (BldA) [Mass fraction] 96 % Aaron El Jr., MD Work Phone: [facility] 04-10-2023 15:25-0500 Systolic blood pressure 140 mm[Hg] Aaron El Jr., MD Work Phone: [facility] 03-28-2022 13:15-0500 Diastolic blood pressure 84 mm[Hg] Tristen Emanuel SUPERVISOR DIE CASTING.BLANKER OPERATOR Work Phone: [facility] 03-28-2022 13:15-0500 Systolic blood pressure 132 mm[Hg] Tristen Emanuel SUPERVISOR DIE CASTING.BLANKER OPERATOR Work Phone: [facility] 03-28-2022 12:55-0500 Body temperature 98.2 [degF] Tristen Emanuel SUPERVISOR DIE CASTING.BLANKER OPERATOR Work Phone: [facility] 03-28-2022 12:55-0500 Body weight 102.06 kg Tristen Emanuel SUPERVISOR DIE CASTING.BLANKER OPERATOR Work Phone: [facility] 03-28-2022 12:55-0500 Heart rate 77 /min Tristen Emanuel SUPERVISOR DIE CASTING.BLANKER OPERATOR Work Phone: [facility] 03-28-2022 12:55-0500 Respiratory rate 16 /min Tristen Emanuel SUPERVISOR DIE CASTING.BLANKER OPERATOR Work Phone: [facility] 03-28-2022 12:55-0500 SaO2% (BldA) [Mass fraction] 95 % Tristen Emanuel SUPERVISOR DIE CASTING.BLANKER OPERATOR Work Phone: [facility] 03-27-2022 12:54-0500 Body temperature 97.81 [degF] Colleen Athy PA-C Work Phone: [facility] 03-27-2022 12:54-0500 Body weight 102.69 kg Colleen Athy PA-C Work Phone: [facility] 03-27-2022 12:54-0500 Diastolic blood pressure 88 mm[Hg] Colleen Athy PA-C Work Phone: [facility] 03-27-2022 12:54-0500 Heart rate 94 /min Colleen Athy PA-C Work Phone: [facility] 03-27-2022 12:54-0500 Respiratory rate 18 /min Colleen Athy PA-C Work Phone: [facility] 03-27-2022 12:54-0500 SaO2% (BldA) [Mass fraction] 96 % Colleen Athy PA-C Work Phone: [facility] 03-27-2022 12:54-0500 Systolic blood pressure 138 mm[Hg] Colleen Athy PA-C Work Phone: [facility] 01-15-2022 14:54-0500 Body temperature 99.3 [degF] Laurie Tannhof SUPERVISOR DIE CASTING.BLANKER OPERATOR Work Phone: [facility] 01-15-2022 14:54-0500 Body weight 100.7 kg Laurie Tannhof SUPERVISOR DIE CASTING.BLANKER OPERATOR Work Phone: [facility] 01-15-2022 14:54-0500 Diastolic blood pressure 84 mm[Hg] Laurie Tannhof SUPERVISOR DIE CASTING.BLANKER OPERATOR Work Phone: [facility] 01-15-2022 14:54-0500 Heart rate 74 /min Laurie Tannhof SUPERVISOR DIE CASTING.BLANKER OPERATOR Work Phone: [facility] 01-15-2022 14:54-0500 Respiratory rate 16 /min Laurie Tannhof SUPERVISOR DIE CASTING.BLANKER OPERATOR Work Phone: [facility] 01-15-2022 14:54-0500 SaO2% (BldA) [Mass fraction] 96 % Laurie Esteves SUPERVISOR DIE CASTING.BLANKER OPERATOR Work Phone: [facility] 01-15-2022 14:54-0500 Systolic blood pressure 120 mm[Hg] Laurie Esteves SUPERVISOR DIE CASTING.BLANKER OPERATOR Work Phone: [facility] 09-28-2021 00:31-0400 Diastolic blood pressure 100 mm[Hg] [facility] Work Phone: 09-28-2021 00:31-0400 Heart rate 71 /min [facility] Work Phone: 09-28-2021 00:31-0400 Respiratory rate 16 /min [facility] Work Phone: 09-28-2021 00:31-0400 SaO2% (BldA) [Mass fraction] 96 % [facility] Work Phone: 09-28-2021 00:31-0400 Systolic blood pressure 147 mm[Hg] [facility] Work Phone: 09-27-2021 17:19-0400 Body height 177.8 cm [facility] Work Phone: 09-27-2021 17:19-0400 Body mass index (BMI) [Ratio] 30.8 kg/m2 [facility] Work Phone: 09-27-2021 17:19-0400 Body temperature 97.8 [degF] [facility] Work Phone: 09-27-2021 17:19-0400 Body weight 97.52 kg [facility] Work Phone: 05-30-2021 13:56-0400 Body weight 98.88 kg Laurie Esteves SUPERVISOR DIE CASTING.BLANKER OPERATOR Work Phone: [facility] 05-30-2021 13:56-0400 Diastolic blood pressure 88 mm[Hg] Laurie Esteves SUPERVISOR DIE CASTING.BLANKER OPERATOR Work Phone: [facility] 05-30-2021 13:56-0400 Heart rate 79 /min Laurie Esteves SUPERVISOR DIE CASTING.BLANKER OPERATOR Work Phone: [facility] 05-30-2021 13:56-0400 Respiratory rate 16 /min Laurie Esteves SUPERVISOR DIE CASTING.BLANKER OPERATOR Work Phone: [facility] 05-30-2021 13:56-0400 SaO2% (BldA) [Mass fraction] 96 % Laurie Esteves SUPERVISOR DIE CASTING.BLANKER OPERATOR Work Phone: [facility] 05-30-2021 13:56-0400 Systolic blood pressure 150 mm[Hg] Laurie Esteves SUPERVISOR DIE CASTING.BLANKER OPERATOR Work Phone: [facility] Encounters Encounter Date Encounter Type Care Provider Facility Start: 05-23-2024 End: 05-23-2024 Telephone encounter Neurology Provider Neurology Comment on above: Appointment (Called patient about scheduling consult to neurology, per referral. pt is already est. last seen in 2023, provided the number to the [place] [facility]. 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); Encounter for immunization; Screening for depression; Encounter for screening examination for other mental health and behavioral disorders; Elevated PSA; Skin lesion Start: 03-08-2024 End: 03-08-2024 Telephone encounter Laurie Esteves APRN.BLANKER OPERATOR Work Phone: [address] [place] [address] Comment on above: Orders Start: 02-20-2024 End: 02-22-2024 Refill Laurie Esteves APRN.BLANKER OPERATOR Work Phone: [facility] Comment on above: Med Change Request Start: 02-19-2024 End: 02-19-2024 ambulatory LAURIE ESTEVES Facility:[facility] Start: 02-18-2024 End: 02-18-2024 Refill Adelita Marcano MD Work Phone: [facility] Comment on above: Refill Request Start: 02-17-2024 End: 02-18-2024 Refill Adelita Marcano MD Work Phone: [facility] [place] Comment on above: Refill Request Question Start: 02-04-2024 End: 02-04-2024 Refill Adelita Marcano MD Work Phone: [facility] [place] Comment on above: Refill Request Start: 01-23-2024 End: 01-23-2024 Refill Tristen Brown APRN.BLANKER OPERATOR Work Phone: [facility] Comment on above: Med Change Request Start: 01-22-2024 End: 01-22-2024 Get Medical Advice Adelita Marcano MD Work Phone: [facility] Comment on above: medication refill Start: 10-26-2023 End: 10-26-2023 Office outpatient visit 25 minutes Cindy Lloyd APRN.BLANKER OPERATOR Work Phone: [facility] Comment on above: Hypertriglyceridemia (Primary Dx); Encounter for immunization; 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); BPH with urinary obstruction; Cognitive impairment, mild, so stated; GERD without esophagitis Start: 10-26-2023 End: 10-26-2023 ambulatory [facility] Facility:[facility] Start: 08-21-2023 Telephone encounter Laurie rice APRN.BLANKER OPERATOR Work Phone: [facility] Comment on above: Results (Labs ) Start: 08-20-2023 End: 08-20-2023 ambulatory LAURIEMARTINE ESTEVES Facility:[facility] Start: 08-20-2023 End: 08-20-2023 Patient encounter procedure Laurie Esteves APRN.BLANKER OPERATOR Work Phone: [facility] Comment on above: Shakiness (Primary D x); 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); Elevated glucose Start: 08-18-2023 End: 08-18-2023 ambulatory ADELITA MARCANO Facility:[facility] Start: 08-18-2023 End: 08-18-2023 Office outpatient visit 15 minutes Cosmo Villalobos SUPERVISOR DIE CASTING.BLANKER OPERATOR Work Phone: [facility] Comment on above: Fatigue, unspecified type (Primary Dx) Start: 08-11-2023 Refill Adelita cuellar MD Work Phone: [facility] Comment on above: Refill Request Start: 08-10-2023 Telephone encounter Tristen quintanilla SUPERVISOR DIE CASTING.BLANKER OPERATOR Work Phone: [facility] Comment on above: Appointment (Emanuel quintanillat 08/11/23-inappropriately scheduled.) Start: 04-23-2023 Telephone encounter Laurie rice SUPERVISOR DIE CASTING.BLANKER OPERATOR Work Phone: [facility] Start: 04-22-2023 Refill Cindy Lloyd SUPERVISOR DIE CASTING.BLANKER OPERATOR Work Phone: [facility] Comment on above: Refill Request Start: 04-21-2023 Refill Adelita cuellar MD Work Phone: [facility] Comment on above: Refill Request Start: 04-10-2023 End: 04-10-2023 Patient encounter procedure Aaron El MD Work Phone: Neurology Comment on above: MCI (mild cognitive impairment) (Primary Dx); Memory loss Start: 03-28-2022 End: 03-28-2022 Office outpatient visit 15 minutes Tristen Brown SUPERVISOR DIE CASTING.BLANKER OPERATOR Work Phone: [facility] Comment on above: Abdominal cramping ( Primary Dx); Bloating Start: 03-27-2022 End: 03-27-2022 Patient encounter procedure [facility] , Specimen Start: 03-27-2022 End: 03-27-2022 ambulatory Colleen Lema NP [facility] Work Phone: Start: 03-27-2022 End: 03-27-2022 Patient encounter procedure Colleen Lema PA-C Work Phone: [facility] Comment on above: Abdominal cramping ( Primary Dx); Bloating Start: 02-24-2022 Refill Adelita cuellar MD Work Phone: [facility] Comment on above: Refill Request Start: 02-14-2022 Refill Laurie Libiahof SUPERVISOR DIE CASTING.BLANKER OPERATOR Work Phone: [facility] Comment on above: Refill Request Start: 01-15-2022 End: 01-15-2022 Patient encounter procedure Laurie Tannhof SUPERVISOR DIE CASTING.BLANKER OPERATOR Work Phone: [facility] Comment on above: Gastroenteritis (Tory yomaira Dx) Start: 01-13-2022 ambulatory Adelita cuellar MD Work Phone: [facility] Comment on above: Viral Syndrome Start: 12-10-2021 Refill Laurie Libiahof SUPERVISOR DIE CASTING.BLANKER OPERATOR Work Phone: [facility] Comment on above: Refill Request Start: 11-08-2021 Telephone encounter Adelita cam MD Work Phone: [facility] Comment on above: Medication Request Start: 10-02-2021 Telephone encounter Adelita cam MD Work Phone: [facility] Comment on above: Results Start: 09-27-2021 End: 09-28-2021 Emergency department patient visit [facility] Facility:[facility] Start: 09-27-2021 End: 09-28-2021 Emergency department patient visit [facility] Start: 05-30-2021 End: 05-30-2021 Patient encounter procedure Laurie Rezahoingrid SUPERVISOR DIE CASTING.BLANKER OPERATOR Work Phone: [facility] Comment on above: Impacted cerumen of left ear (Primary Dx); Tinnitus, bilateral; Forgetfulness Start: 04-28-2021 Refill Tristen Emanuel SUPERVISOR DIE CASTING.BLANKER OPERATOR Work Phone: [facility] Comment on above: Refill Request Start: 01-18-2020 End: 01-18-2020 Subsequent hospital visit by physician [facility] [place] Work Phone: Radiology Comment on above: Chronic pain of righ t knee [M25.561, G89.29] Procedures Date Procedure Procedure Detail Performing Clinician Start: 05-03-2024 PFIZER-BIONTECH COVI D-19 VACCINE AGE 12+ YR (COMIRNATY) Adelita Marcano MD Work Phone: Start: 05-03-2024 Adult depression scr eening assessment Adelita Marcano MD Work Phone: Start: 08-18-2023 Gluc bld gluc mntr d ev cleared fda spec home use Cosmo Villalobos SUPERVISOR DIE CASTING.BLANKER OPERATOR Work Phone: Start: 01-27-2023 Lipid 1996 panel - S jovita or Plasma Aaron El Jr., MD Work Phone: Start: 03-27-2022 Urnls dip stick/tabl et rgnt auto w/o microscopy Colleen Lema PA-C Work Phone: Start: 03-06-2021 Adult depression scr eening assessment Tristen Brown SUPERVISOR DIE CASTING.BLANKER OPERATOR Work Phone: Start: 01-18-2020 Radiologic exam knee complete 4/more views Adelita Marcano MD Work Phone: Start: 08-26-2016 Colonoscopy Tristen quintanilla SUPERVISOR DIE CASTING.BLANKER OPERATOR Work Phone: SARS-CoV-2 & FLU Ant igen (Rapid) Plan of Treatment Date Care Activity Detail Author Start: 02-06-2031 Urine microalbumin profile [facility] Start: 01-28-2028 Lipid panel Lipid Screening [facility] Start: 01-28-2028 Prostate specific antigen measurement Prostate Cancer Screening Discussion [facility] Start: 08-26-2026 Colonoscopy COLONOSCOPY [facility] Start: 08-26-2026 COLORECTAL CANCER SCREENING COLORECTAL CANCER SCREENING [facility] Start: 08-26-2026 Screening for malign ant neoplasm of colon [facility] Start: 08-19-2026 Diabetes Screening Diabetes Screenin g [facility] Start: 02-06-2026 LIPID SCREEN LIPID SCREEN [facility] Start: 02-06-2026 PROSTATE CANCER SCREENING DISCUSSION PROSTATE CANCER SCREENING DISCUSSION [facility] Start: 01-27-2026 Diabetes Screening Diabetes Screenin g [facility] Start: 05-03-2025 Anxiety Screening Anxiety Screening [facility] Start: 05-03-2025 Depression Screening Depression Scre ening [facility] Start: 03-27-2025 DIABETES SCREEN DIABETES SCREEN [facility] Start: 01-14-2025 DIABETES SCREEN DIABETES SCREEN [facility] Start: 11-03-2024 End: 11-03-2024 Patient encounter procedure 11/03/2024 3:40 PM EDT Office Visit [facility] [place] [address] [place] [address] Adelita Marcano MD [address] [place], [place] [address] 6 mo f/u [facility] [place] Comment on above: 6 mo f/u Start: 11-03-2024 Covid-19 Vaccine () Covid-19 Vaccine () [facility] Start: 05-03-2024 End: 08-02-2024 Comprehensive metabolic 2000 panel - Serum or Plasma COMPREHENSIVE METABOLIC PANEL Lab Routine Hyperlipidemia, mixed Elevated glucose Expected: 05/03/2024 (Approximate), Expires: 08/02/2024 [facility] Comment on above: Expected: 05/03/2024 (Approximate), Expires: 08/02/2024 Start: 05-03-2024 End: 08-02-2024 Hemoglobin A1c in Blood HEMOGLOBIN A1C Lab Routine Elevated glucose Expected: 05/03/2024 (Approximate), Expires: 08/02/2024 [facility] Comment on above: Expected: 05/03/2024 (Approximate), Expires: 08/02/2024 Start: 05-03-2024 End: 08-02-2024 Lipid 1996 panel - Serum or Plasma LIPID PANEL, FASTING Lab Routine Hyperlipidemia, mixed Elevated glucose Expected: 05/03/2024 (Approximate), Expires: 08/02/2024 [facility] Work Phone: Comment on above: Expected: 05/03/2024 (Approximate), Expires: 08/02/2024 Start: 05-03-2024 End: 08-02-2024 Prostate specific Ag [Mass/volume] in Serum or Plasma PROSTATE-SPECIFIC ANTIGEN DIAGNOSTIC Lab Routine BPH with urinary obstruction Elevated PSA Expected: 05/03/2024 (Approximate), Expires: 08/02/2024 [facility] Comment on above: Expected: 05/03/2024 (Approximate), Expires: 08/02/2024 Start: 04-25-2024 End: 04-25-2024 Patient encounter procedure 04/25/2024 3:00 PM EDT Office Visit Family Fariha Larios [address] [place] [address] Adelita Marcano MD [address] [place], [place] [id number] 6 month follow up Family [facility] Comment on above: 6 month follow up Start: 02-19-2024 End: 02-19-2024 Patient encounter procedure 02/19/2024 1:40 PM EST Office Visit Family Fariha Larios [address] [place] [address] Laurie Esteves, SUPERVISOR DIE CASTING.BLANKER OPERATOR [address] [place] [address] mole on face & shoulder discuss removal Family [facility]ha Larios Comment on above: mole on face & shoul anaya discuss removal Start: 02-18-2024 End: 02-18-2024 Patient encounter procedure 02/18/2024 10:20 AM EST Office Visit Family Fariha Larios [address] [place] [address] Laurie Esteves, SUPERVISOR DIE CASTING.BLANKER OPERATOR [address] [place] [address] mole on face & shoulder discuss removal Family Fariha Larios Comment on above: mole on face & shoul anaya discuss removal Start: 02-10-2024 Advance Directive Discussion Advance Directive Discussion [facility] Start: 02-07-2024 DIABETES SCREEN DIABETES SCREEN [facility] Start: 01-01-2024 End: 01-01-2024 Patient encounter procedure 01/01/2024 2:20 PM EST Office Visit Rheumatology [address] [place] [address] [place] [address] [id number] 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) [M05.711] Rheumatology Comment on above: 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) [M05.711] Start: 10-27-2023 End: 10-27-2023 Patient encounter procedure 10/27/2023 9:00 AM EDT Office Visit Neurology [address] [place], [place] [id number] Elke Caro PA-C [address] [place], [place] [id number] Six month follow up, memory Neurology Comment on above: Six month follow up, memory Start: 10-19-2023 End: 10-19-2023 Patient encounter procedure 10/19/2023 3:40 PM EDT Office Visit Neurology [address] [place], [place] [id number] Aaron El Jr., MD [address] [address] Six month follow up, memory Neurology Comment on above: Six month follow up, memory Start: 10-11-2023 Covid-19 Vaccine ( season) Covid-19 Vaccine ( season) [facility] Start: 10-11-2023 Covid-19 Vaccine ( season) Covid-19 Vaccine ( season) [facility] Start: 10-11-2023 Influenza vaccination Influenza Vacc ine (#1) [facility] Start: 08-21-2023 End: 11-20-2023 HIV 1+2 Ab [Presence] in Serum or Plasma by Immunoassay HIV 1/2 COMBO WITH REFLEX TO DIFFERENTIATION Lab Routine Shakiness Diaphoresis Expected: 08/21/2023, Expires: 11/20/2023 [facility] Work Phone: Comment on above: Expected: 08/21/2023 , Expires: 11/20/2023 Start: 08-21-2023 End: 11-20-2023 Urinalysis complete panel - Urine URINALYSIS, WITH MICROSCOPIC Lab Routine Shakiness Diaphoresis Expected: 08/21/2023, Expires: 11/20/2023 [facility] Comment on above: Expected: 08/21/2023 , Expires: 11/20/2023 Start: 08-20-2023 End: 11-19-2023 Comprehensive metabolic 2000 panel - Serum or Plasma [facility] Work Phone: Comment on above: Expected: 08/20/2023 , Expires: 11/19/2023 Start: 08-20-2023 End: 11-19-2023 Hemoglobin A1c in Blood [facility] Comment on above: Expected: 08/20/2023 , Expires: 11/19/2023 Start: 08-20-2023 End: 11-19-2023 Magnesium [Mass/volume] in Serum or Plasma [facility] Comment on above: Expected: 08/20/2023 , Expires: 11/19/2023 Start: 08-20-2023 End: 11-19-2023 Thyrotropin [Units/volume] in Serum or Plasma [facility] Comment on above: Expected: 08/20/2023 , Expires: 11/19/2023 Start: 08-19-2023 End: 08-19-2023 Patient encounter procedure 08/19/2023 8:40 AM EDT Office Visit [facility] [place] [address] [place] [address] Laurie Esteves, SUPERVISOR DIE CASTING.BLANKER OPERATOR [address] [place] [address] f/u Shakiness and fatigue possible medication reaction [facility] [place] Comment on above: f/u Shakiness and fa tigue possible medication reaction Start: 02-09-2023 Advance Directive Discussion Advance Directive Discussion [facility] Start: 02-09-2023 Depression Assessment Depression Ass essment [facility] Start: 10-29-2022 FECAL OCCULT BLOOD FECAL OCCULT BLOO D [facility] Start: 10-29-2022 Screening for malign ant neoplasm of colon Fecal Occult Blood [facility] Start: 10-10-2022 Covid-19 Vaccine ( season) Covid-19 Vaccine () [facility] Start: 03-06-2022 Adult depression screening assessment DEPRESSION SCREENING [facility] Start: 02-09-2022 ADVANCE DIRECTIVE DISCUSSION ADVANCE DIRECTIVE DISCUSSION [facility] Start: 02-09-2022 DEPRESSION ASSESSMENT DEPRESSION ASS ESSMENT [facility] Start: 02-06-2022 Pneumococcal Vaccine : 65+ (2 of 2 - PCV) Pneumococcal Vaccine: 65+ (2 of 2 - PCV) [facility] Start: 02-06-2022 PNEUMOCOCCAL: 65+ (2 - PCV) PNEUMOCOCCAL: 65+ (2 - PCV) [facility] Start: 10-10-2021 Influenza vaccination INFLUENZA (#1) [facility] Start: 09-28-2021 Computed tomography of abdomen and pelvis with intravenous contrast Abdomen/Pelvis W IV Cont ONLY [facility] Work Phone: Start: 09-27-2021 Plain chest X-ray Chest PA and Later al [facility] Work Phone: Start: 09-27-2021 XR Chest PA and Lateral [facility] Work Phone: Start: 08-09-2021 COVID-19 VACCINE (4 - Booster for Pfizer series) COVID-19 VACCINE (4 - Booster for Pfizer series) [facility] Start: 06-18-2021 Shingrix Vaccine (2 of 2) Shingrix Vaccine (2 of 2) [facility] Start: 06-04-2021 COVID-19 VACCINE (4 - Booster for Pfizer series) COVID-19 VACCINE (4 - Booster for Pfizer series) [facility] Start: 02-09-2021 ADVANCE DIRECTIVE DISCUSSION ADVANCE DIRECTIVE DISCUSSION [facility] Start: 02-09-2021 DEPRESSION ASSESSMENT DEPRESSION ASS ESSMENT [facility] Start: 10-26-2020 COVID-19 VACCINE (3 - Booster for Pfizer series) COVID-19 VACCINE (3 - Booster for Pfizer series) [facility] Start: 2014 HEPATITIS B (1 of 3 - Risk 3-dose series) HEPATITIS B (1 of 3 - Risk 3-dose series) [facility] Start: 2014 Hepatitis B Vaccine (1 of 3 - Risk 3-dose series) Hepatitis B Vaccine (1 of 3 - Risk 3-dose series) [facility] Start: 2014 RSV Vaccine (1 - 1-d ose 60+ series) RSV Vaccine (1 - 1-dose 60+ series) [facility] Start: 2014 RSV Vaccine (1 - Ris k 60-74 years 1-dose series) RSV Vaccine (1 - Risk 60-74 years 1-dose series) [facility] Start: 2004 SHINGRIX VACCINE (1 of 2) SHINGRIX VACCINE (1 of 2) [facility] Start: 11-13-1999 COLOGUARD (FIT-DNA) COLOGUARD (FIT-D NA) [facility] Start: 11-13-[address] COLONOGRAPHY [facility] Start: 11-13-1999 FECAL OCCULT BLOOD FECAL OCCULT BLOO D [facility] Start: 11-13-1999 Screening for malign ant neoplasm of colon [facility] Start: 11-13-1999 SIGMOIDOSCOPY SIGMOIDOSCOPY [facility] Start: 1973 Hepatitis A Vaccine (1 of 2 - Risk 2-dose series) Hepatitis A Vaccine (1 of 2 - Risk 2-dose series) [facility] Start: 1973 HEPATITIS B (1 of 3 - Risk 3-dose series) HEPATITIS B (1 of 3 - Risk 3-dose series) [facility] Start: 1972 Anxiety Screening Anxiety Screening [facility] Start: 1972 Depression Screening Depression Scre ening [facility] Start: 11-13-1955 HEPATITIS A (1 of 2 - Risk 2-dose series) HEPATITIS A (1 of 2 - Risk 2-dose series) [facility] Start: 1955 ABDOMINAL AORTIC ANEURYSM SCREENING ABDOMINAL AORTIC ANEURYSM SCREENING [facility] Start: 1955 Abdominal aortic aneurysm screening Abdominal Aortic Aneurysm Screening [facility] Patient Education ED Abdominal P ain Unkn Cause Male... [facility] Work Phone: Patient referral [facility] Work Phone: End: 09-19-2024 XR Chest PA and Lateral XR CHEST 2V FRONTAL/LAT Radiology Routine Shakiness Diaphoresis 1 Occurrences starting 08/21/2023 until 09/19/2024 [facility] Comment on above: 1 Occurrences starti ng 08/21/2023 until 09/19/2024 [facility] Immunizations Immunization Date Immunization Notes Care Provider Abhishek brown 05-03-2024 COVID-19 vaccine, ag e 12+ yr (PFIZER-BIONTECH COMIRNATY) Adelita Marcano MD Work Phone: [facility] 10-26-2023 pneumococcal Conjuga te, unspecified formulation Cindy Lloyd SUPERVISOR DIE CASTING.BLANKER OPERATOR Work Phone: [facility] Work Phone: 10-26-2023 pneumococcal conjuga te (PCV20) vaccine, 20 valent (PREVNAR 20) Cindy Lloyd SUPERVISOR DIE CASTING.BLANKER OPERATOR Work Phone: [facility] 10-04-2023 influenza (HD-IIV4) vaccine, age 65+ yr, high dose, quadrivalent, PF (FLUZONE HIGH-DOSE) Cindy Lloyd SUPERVISOR DIE CASTING.BLANKER OPERATOR Work Phone: [facility] 10-10-2022 influenza (aIIV4) vaccine, age 65+ yr, quadrivalent, PF (FLUAD QUAD) Aaron El Jr., MD Work Phone: [facility] 10-10-2022 influenza virus vaccine, unspecified formulation Tristenkirsten Brown SUPERVISOR DIE CASTING.BLANKER OPERATOR Work Phone: [facility] 04-23-2021 zoster vaccine recombinant Adelita Marcano MD Work Phone: [facility] 02-06-2021 pneumococcal polysaccharide vaccine, 23 valent Tristen Emanuel SUPERVISOR DIE CASTING.BLANKER OPERATOR Work Phone: [facility] 02-06-2021 tetanus toxoid, redu amna diphtheria toxoid, and acellular pertussis vaccine, adsorbed Tristen Emanuel SUPERVISOR DIE CASTING.BLANKER OPERATOR Work Phone: [facility] 11-14-2019 influenza, seasonal, injectable Tristen Emanuel SUPERVISOR DIE CASTING.BLANKER OPERATOR Work Phone: [facility] 11-06-2017 influenza, injectabl e, quadrivalent, contains preservative Tristen Emanuel SUPERVISOR DIE CASTING.BLANKER OPERATOR Work Phone: [facility] 10-29-2016 influenza, seasonal, injectable Tristen Emanuel SUPERVISOR DIE CASTING.BLANKER OPERATOR Work Phone: [facility] 11-10-2015 influenza, seasonal, injectable Tristen Emanuel SUPERVISOR DIE CASTING.BLANKER OPERATOR Work Phone: [facility] 11-28-2013 influenza, seasonal, injectable Tristen Emanuel SUPERVISOR DIE CASTING.BLANKER OPERATOR Work Phone: [facility] 11-26-2011 influenza virus vaccine, unspecified formulation Tristen Emanuel SUPERVISOR DIE CASTING.BLANKER OPERATOR Work Phone: [facility] Work Phone: 02-21-2011 influenza virus vaccine, unspecified formulation Tristen Emanuel SUPERVISOR DIE CASTING.BLANKER OPERATOR Work Phone: [facility] 11-24-2009 influenza virus vaccine, unspecified formulation Tristen Emanuel SUPERVISOR DIE CASTING.BLANKER OPERATOR Work Phone: [facility] 09-12-2008 diphtheria, tetanus toxoids and acellular pertussis vaccine Tristen Emanuel SUPERVISOR DIE CASTING.BLANKER OPERATOR Work Phone: [facility] Work Phone: 12-07-2006 influenza virus vaccine, unspecified formulation Tristen Emanuel SUPERVISOR DIE CASTING.BLANKER OPERATOR Work Phone: [facility] Payers Date Payer Category Payer Self-pay [id number] 2019 Medicare MMO MEDICARE MMO MED[employer]VANTAGE O [id number] 2019-Present [phone] [address] [place] [address] [place] [id number] 2019 Medicare MMO MEDICARE MMO MEDADVANTAGE O [id number] 2019-Present [phone] [address] [place] [address] [place] [id number] 2019 Medicare (Managed Care) O MEDADVANTAGE HMO [id number] 2019 Medicare [id number] Unknown [id number] Unknown [id number] Social History Date Type Detail Facility Start: 04-07-2017 End: 10-07-2021 Tobacco smoking status NHIS Ex-smoker [facility] Start: 03-07-2021 End: 05-03-2024 Alcohol intake Current non-drinker of alcohol (finding) [facility] Start: 03-07-2021 End: 01-15-2022 History SDOH Alcohol Frequency 3 [facility] Start: 03-07-2021 End: 01-15-2022 History SDOH Alcohol Std Drinks 1 [facility] Start: 03-07-2021 End: 01-15-2022 History SDOH Social Connections Phone 5 [facility] Start: 03-07-2021 End: 01-15-2022 History SDOH Social Connections Get Together 2 [facility] Start: 1955 Sex Assigned At Male [facility] Start: 12-19-2019 End: 10-02-2021 Exposure to SARS-CoV-2 (event) Not sure [facility] Start: 09-27-2021 End: 09-27-2021 Tobacco smoking status NHIS Unknown if ever smoked [facility] [facility] History of tobacco use Current smoker [facility] Start: 04-07-2017 End: 10-07-2021 Tobacco use and exposure Smokeless tobacco non-user [facility] Start: 10-07-2021 Tobacco Comment quit 15 years ago [facility] Start: 01-15-2022 History SDOH Alcohol Frequency 4 [facility] Start: 01-15-2022 History SDOH Social Connections Living 98 [facility] Start: 01-15-2022 End: 09-24-2022 History of Social function [facility] Start: 01-15-2022 End: 09-24-2022 Social connection and isolation panel [facility] Do you belong to any clubs or organizations such as holiness groups, unions, fraStackdriver or athletic groups, or school groups? No [facility] Are you now , , , , never or living with a partner? Refused [facility] How often to you hav e a drink containing alcohol? 2-3 time sa week [facility] How many standard dr inks containing alcohol do you have on a typical day? 1 or 2 [facility] How often do you hav e 6 or more drinks on 1 occasion? Never [facility] How hard is it for y ou to pay for the very basics like food, housing, medical care, and heating Not hard at all [facility] Do you feel stress - tense, restless, nervous, or anxious, or unable to sleep at night because your mind is troubled all the time - these days [OSQ] To some extent [facility] (I/We) worried wheallegra er (my/our) food would run out before (I/we) got money to buy more. Never true [facility] Start: 03-05-2021 Gender identity Identifies as male gender (finding) [facility] Start: 03-05-2021 Sexual orientation Heterosexual (finding) [facility] Are you now , , , , never or living with a partner? [facility] Do you feel stress - tense, restless, nervous, or anxious, or unable to sleep at night because your mind is troubled all the time - these days [OSQ] Not at all [facility] Functional Status Date Assessment Result Facility 06-22-2014 Are you deaf, or do you have serious difficulty hearing No 06/22/2014 5:42 PM EDT [facility] No [facility] 06-22-2014 Are you blind, or do you have serious difficulty seeing, even when wearing glasses No 06/22/2014 5:42 PM EDT [facility] No [facility] 06-22-2014 Do you have serious difficulty walking or climbing stairs No 06/22/2014 5:42 PM EDT [facility] No [facility] 06-22-2014 Do you have difficul ty dressing or bathing No 06/22/2014 5:42 PM EDT [facility] No [facility] 06-22-2014 Because of a physica l, mental, or emotional condition, do you have difficulty doing errands alone such as visiting a physician's office or shopping No 06/22/2014 5:42 PM EDT [facility] No [facility] Mental Status Date Assessment Result Facility 09-27-2021 Cognitive function Level Of Cons ciousness Awake;Alert;Appropriate;Fol lows Commands [facility] Work Phone: 06-22-2014 Because of a physica l, mental, or emotional condition, do you have serious difficulty concentrating, remembering, or making decisions No 06/22/2014 5:42 PM EDT [facility] No [facility] Clinical Notes 01-18-2020 to 05-23-2024 Telephone Encounter - Jaki Wells - 05/23/2024 8:32 AM EDTTelephone Encounter - Jaki Wells - 05/23/2024 8:32 AM Adelita Melendez MD - 05/03/2024 3:20 PM EDTPatient Instructions Note Date & Type Note Facility 05-23-2024 Telephone encounter Note Called patient about scheduling consult to neurology, per referral. pt is already est. last seen in 2023, provided the number to the [facility] office. called [phone] [facility] 05-23-2024 Miscellaneous Notes Called patient about scheduling consult to neurology, per referral. pt is already est. last seen in 2023, provided the number to the [place] office. called [phone] documented in this encounter [facility] 05-03-2024 History of Present illness Narrative Chief Complaint Patient presents with: F/U 6 Month HPI Aaron Adler is a 68 year old male who presents here today for 6 month follow up. No bowel or stomach issues. Has BPH, urinating ok. Denies nocturia. Stable on Terazosin 10 mg once daily. GERD: Controlled with Prilosec 40 mg daily. Lipid: Taking Lipitor 20 mg daily. Tolerating well, no myalgia or gi upset. States he tries to watch his diet. Admits to not exercising enough. Has gained weight, was 214 lbs in 2021, now 263 lbs. RA: Does not follow with Rheum. Taking Prednisone 5 mg, 2 tabs po once daily. Asking to change pill to 10 mg dosage. Has previously dosed himself taking 1-2 tabs, but now taking 2 tabs. He feels comfortable on this regimen, does not want to change, feels that he tolerates it well and it controls his symptoms. His blood sugars have been OK; bone density in 2023 was normal. Does not want to see Rheum. Memory: Was seen by Dr. El; given diagnosis of MCI. Dillon cannot tell if he is much worse or not. No problems with getting lost. Skin lesions on right shoulder and right cheek;l he was referred to Derm in Feb but apparently this was never done. HM - Denies having Adv Dir/Living Will. Agreeable to Covid vaccine. Depression/Anxiety screening completed, negative. RSV vaccine through Pharmacy. Received 1 of 2 Shingles. Past medical history, appointments, medications, allergies reviewed. Previous Medical History PAST MEDICAL HISTORY Diagnosis Date Arrhythmia Arthralgia Diarrhea Epistaxis Headache(784.0) Hyperlipidemia Mental disorder Mouth sores Other, mixed, or unspecified nondependent drug abuse, unspecified hx heroin addiction PMH - PAST MEDICAL HISTORY OF arthritis S/P ablation operation for arrhythmia 1999 Unspecified constipation Previous Surgical History PAST SURGICAL HISTORY Procedure Laterality Date COLONOSCOPY FLX DX W/COLLJ SPEC WHEN PFRMD 08/20/2006 Colonoscopy NEUROPLASTY &/TRANSPOS MEDIAN NRV CARPAL TUNNE 08/07/2005 Carpal tunnel decomp Left PAST SURGICAL HISTORY OF Right 1985 foot surgery/ bone removal d/t infection UNLISTED CARDIAC SURG PROCEDURE 1999 cathetarization for tachycardia Family History FAMILY HISTORY Problem Relation Age of Onset Diabetes Mother non insulin dependent Blood Disease Mother 84 multiple myeloma None Father Patient Allergies ALLERGIES Allergen Reactions Meloxicam Other: See Comments Groggy Bactrim [Sulfametho* Other: See Comments thrush Niacin Intolerance tachycardia Trimethoprim Other: See Comments Current Medications Current Outpatient Medications on File Prior to Visit Medication Sig Terazosin HCl (HYTRIN) 10 mg capsule Take 1 capsule by mouth once daily. atorvastatin (LIPITOR) 20 mg tablet take 1 tablet by mouth once daily at bedtime for cholesterol omeprazole (PRILOSEC) 40 mg capsule Take 1 capsule by mouth once daily. valACYclovir (VALTREX) 500 mg tablet Take 1 tablet by mouth two times a day. predniSONE (DELTASONE) 5 mg tablet Take 1-2 tablets by mouth once daily. Ankwlxx-Buotbnhwo-Iwvz tab Calcium 1200 mg once daily. Magnesium 500 mg once daily Zinc - 50 mg once daily. Ascorbic Acid (VITAMIN C) 1,000 mg tablet Take 1 tablet by mouth once daily. Cyanocobalamin (VITAMIN B-12) 1,000 mcg TbER Take 1 mcg by mouth once daily. pyridoxine, vitamin B6, (VITAMIN B-6) 100 mg tablet Take 1 tablet by mouth once daily. No current facility-administered medications on file prior to visit. Social History Social History Tobacco Use Smoking status: Former Smokeless tobacco: Never Tobacco comments: quit 15 years ago Substance Use Topics Alcohol use: No Comment: quit 3 years ago Drug use: Yes Comment: former heroin addict EXAM: BP 130/84 (BP Site: Left Arm, BP Position: Sitting, BP Cuff Size: Large Adult) Pulse 76 Resp 18 Wt 119.4 kg (263 lb 3.7 oz) BMI 39.21 kg/m General Appearance: Well appearing, alert, in no acute distress, well-hydrated, well nourished.. Skin: dark, irregular lesion right shoulder, tiago keratosis right cheek. Lungs: Lungs clear to auscultation. No wheezing, rhonchi, rales.. Heart: RRR without murmur, gallop, or rubs. No ectopy. Extremities: hands: mild swelling left hand. Health Maintenance List Abdominal Aortic Aneurysm Screening Never done Depression Screening Never done Anxiety Screening Never done Hepatitis A Vaccine(1 of 2 - Risk 2-dose series) Never done Hepatitis B Vaccine(1 of 3 - Risk 3-dose series) Never done RSV Vaccine(1 - Risk 60-74 years 1-dose series) Never done Shingrix Vaccine(2 of 2) due on 06/18/2021 Covid-19 Vaccine( season) due on 10/11/2023 Advance Directive Discussion Never done Diabetes Screening due on 08/19/2026 Colorectal Cancer Screening due on 08/26/2026 Lipid Screening due on 01/28/2028 DTaP,Tdap,Td Vaccine(3 - Td or Tdap) due on 02/06/2031 Influenza Vaccine Completed Hepatitis C Screening Completed Pneumococcal Vaccine: 50+ Completed Data reviewed none ASSESSMENT/PLAN: 1. Hyperlipidemia, mixed - ICD9: 272.2, ICD10: E78.2 (primary diagnosis) - Control undetermined, due for labs - Continue current medications - Counseled on healthy diet and regular exercise - LIPID PANEL, FASTING - COMPREHENSIVE METABOLIC PANEL 2. Elevated glucose - ICD9: 790.29, ICD10: R73.09 Check labs - LIPID PANEL, FASTING - COMPREHENSIVE METABOLIC PANEL - HEMOGLOBIN A1C 3. BPH with urinary obstruction - ICD9: 600.01, 599.69, ICD10: N40.1, N13.8 - PROSTATE-SPECIFIC ANTIGEN DIAGNOSTIC 4. Memory changes - ICD9: 780.93, ICD10: R41.3 Monitor 5. 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 Encounter for immunization - ICD9: V03.89, ICD10: Z23 - PFIZER-BIONTECH COVID-19 VACCINE AGE 12+ YR (COMIRNATY) 7. Screening for depression - ICD9: V79.0, ICD10: Z13.31 - DEPRESSION SCREENING 8. Encounter for screening examination for other mental health and behavioral disorders - ICD9: V79.8, ICD10: Z13.39 - ANXIETY SCREENING 9. Elevated PSA - ICD9: 790.93, ICD10: R97.20 - PROSTATE-SPECIFIC ANTIGEN DIAGNOSTIC 10. Skin lesion - ICD9: 709.9, ICD10: L98.9 Refer to [facility] - CONSULT TO DERMATOLOGY Notify of lab restuls Follow up in 6 months Medical Decision Making: Problems: Moderate: 2+ stable chronic illnesses Data: Unique test(s) ordered: 3+ Risk: Moderate: Drug management Medical Decision Making Level: 4 - Moderate Adelita Marcano MD documented in this encounter [facility] 05-03-2024 Note HNO ID: [id number] Author: ADELITA MARCANO MD Service: ? Author Type: Physician Type: Progress Notes Filed: 05/03/2024 17:10 Note Text: Chief Complaint Patient presents with: F/U 6 Month HPI Aaron Adler is a 68 year old male who presents here today for 6 month follow up. No bowel or stomach issues. Has BPH, urinating ok. Denies nocturia. Stable on Terazosin 10 mg once daily. GERD: Controlled with Prilosec 40 mg daily. Lipid: Taking Lipitor 20 mg daily. Tolerating well, no myalgia or gi upset. States he tries to watch his diet. Admits to not exercising enough. Has gained weight, was 214 lbs in 2021, now 263 lbs. RA: Does not follow with Rheum. Taking Prednisone 5 mg, 2 tabs po once daily. Asking to change pill to 10 mg dosage. Has previously dosed himself taking 1-2 tabs, but now taking 2 tabs. He feels comfortable on this regimen, does not want to change, feels that he tolerates it well and it controls his symptoms. His blood sugars have been OK; bone density in 2023 was normal. Does not want to see Rheum. Memory: Was seen by Dr. El; given diagnosis of MCI. [place] cannot tell if he is much worse or not. No problems with getting lost. Skin lesions on right shoulder and right cheek;l he was referred to Derm in Feb but apparently this was never done. HM - Denies having Adv Dir/Living Will. Agreeable to Covid vaccine. Depression/Anxiety screening completed, negative. RSV vaccine through Pharmacy. Received 1 of 2 Shingles. Past medical history, appointments, medications, allergies reviewed. Previous Medical History PAST MEDICAL HISTORY Diagnosis Date Arrhythmia Arthralgia Diarrhea Epistaxis Headache(784.0) Hyperlipidemia Mental disorder Mouth sores Other, mixed, or unspecified nondependent drug abuse, unspecified hx heroin addiction PMH - PAST MEDICAL HISTORY OF arthritis S/P ablation operation for arrhythmia 1999 Unspecified constipation Previous Surgical History PAST SURGICAL HISTORY Procedure Laterality Date COLONOSCOPY FLX DX W/COLLJ SPEC WHEN PFRMD 08/20/2006 Colonoscopy NEUROPLASTY AND/TRANSPOS MEDIAN NRV CARPAL TUNNE 08/07/2005 Carpal tunnel decomp Left PAST SURGICAL HISTORY OF Right 1985 foot surgery/ bone removal d/t infection UNLISTED CARDIAC SURG PROCEDURE 1999 cathetarization for tachycardia Family History FAMILY HISTORY Problem Relation Age of Onset Diabetes Mother non insulin dependent Blood Disease Mother 84 multiple myeloma None Father Patient Allergies ALLERGIES Allergen Reactions Meloxicam Other: See Comments Groggy Bactrim [Sulfametho* Other: See Comments thrush Niacin Intolerance tachycardia Trimethoprim Other: See Comments Current Medications Current Outpatient Medications on File Prior to Visit Medication Sig Terazosin HCl (HYTRIN) 10 mg capsule Take 1 capsule by mouth once daily. atorvastatin (LIPITOR) 20 mg tablet take 1 tablet by mouth once daily at bedtime for cholesterol omeprazole (PRILOSEC) 40 mg capsule Take 1 capsule by mouth once daily. valACYclovir (VALTREX) 500 mg tablet Take 1 tablet by mouth two times a day. predniSONE (DELTASONE) 5 mg tablet Take 1-2 tablets by mouth once daily. Mlaurhx-Uaxkilrkn-Jdic tab Calcium 1200 mg once daily. Magnesium 500 mg once daily Zinc - 50 mg once daily. Ascorbic Acid (VITAMIN C) 1,000 mg tablet Take 1 tablet by mouth once daily. Cyanocobalamin (VITAMIN B-12) 1,000 mcg TbER Take 1 mcg by mouth once daily. pyridoxine, vitamin B6, (VITAMIN B-6) 100 mg tablet Take 1 tablet by mouth once daily. No current facility-administered medications on file prior to visit. Social History Social History Tobacco Use Smoking status: Former Smokeless tobacco: Never Tobacco comments: quit 15 years ago Substance Use Topics Alcohol use: No Comment: quit 3 years ago Drug use: Yes Comment: former heroin addict EXAM: BP 130/84 (BP Site: Left Arm, BP Position: Sitting, BP Cuff Size: Large Adult) Pulse 76 Resp 18 Wt 119.4 kg (263 lb 3.7 oz) BMI 39.21 kg/m? General Appearance: Well appearing, alert, in no acute distress, well-hydrated, well nourished.. Skin: dark, irregular lesion right shoulder, tiago keratosis right cheek. Lungs: Lungs clear to auscultation. No wheezing, rhonchi, rales.. Heart: RRR without murmur, gallop, or rubs. No ectopy. Extremities: hands: mild swelling left hand. Health Maintenance List Abdominal Aortic Aneurysm Screening Never done Depression Screening Never done Anxiety Screening Never done Hepatitis A Vaccine(1 of 2 - Risk 2-dose series) Never done Hepatitis B Vaccine(1 of 3 - Risk 3-dose series) Never done RSV Vaccine(1 - Risk 60-74 years 1-dose series) Never done Shingrix Vaccine(2 of 2) due on 06/18/2021 Covid-19 Vaccine(2023- season) due on 10/11/2023 Advance Directive Discussion Never done Diabetes Screening due on 08/19/2026 Colorectal Cancer Screening due on (more content not included)... [facility] 03-08-2024 Telephone encounter Note Referral paperwork has been faxed to Sunil Fontenot at [phone]. Glendy Escalera MA [facility] 03-08-2024 Miscellaneous Notes Referral paperwork has been faxed to Sunil Fontenot at [phone]. Glendy Escalera MA Per patient please fax dermatology referral to Sunil Fontenot documented in this encounter [facility] 03-08-2024 Telephone encounter Note Per patient please fax dermatology referral to Sunil Fontenot [facility] 02-19-2024 Note HNO ID: [id number] Author: LAURIE ESTEVES APRN.BLANKER OPERATOR Service: ? Author Type: Nurse Practitioner Type: Progress Notes Filed: 02/19/2024 14:23 Note Text: This is a 68 year old male who presents today with: Patient presents with: Acute Visit: moles on face and shoulder HISTORY OF PRESENT ILLNESS: Aaron Adler is a 68 year old male. Patient presents with: Acute Visit: moles on face and shoulder Here in the office to discuss mole removal. Mole on face and shoulder. Concerned since they seem to be changing in shape and color. No itching or seeping. Memory changes, difficulty retaining infomration. 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 Refers that he checks his medications several times per day to ensure he took them. No difficulty driving. Will lose things around the house. Has not left stove or water running. No family history of dementia or Alzheimer's. Needs refills. PAST MEDICAL HISTORY: PAST MEDICAL HISTORY Diagnosis Date Arrhythmia Arthralgia Diarrhea Epistaxis Headache(784.0) Hyperlipidemia Mental disorder Mouth sores Other, mixed, or unspecified nondependent drug abuse, unspecified hx heroin addiction PMH - PAST MEDICAL HISTORY OF arthritis S/P ablation operation for arrhythmia 1999 Unspecified constipation PAST SURGICAL HISTORY Procedure Laterality Date COLONOSCOPY FLX DX W/COLLJ SPEC WHEN PFRMD 08/20/2006 Colonoscopy NEUROPLASTY AND/TRANSPOS MEDIAN NRV CARPAL TUNNE 08/07/2005 Carpal tunnel decomp Left PAST SURGICAL HISTORY OF Right 1985 foot surgery/ bone removal d/t infection UNLISTED CARDIAC SURG PROCEDURE 2000 cathetarization for tachycardia ALLERGIES Meloxicam, Bactrim [Sulfamethoxazole], Niacin, and Trimethoprim MEDICATIONS Current Outpatient Medications Medication Sig omeprazole (PRILOSEC) 40 mg capsule Take 1 capsule by mouth once daily. Terazosin HCl (HYTRIN) 10 mg capsule Take 1 capsule by mouth once daily. atorvastatin (LIPITOR) 20 mg tablet take 1 tablet by mouth once daily at bedtime for cholesterol valACYclovir (VALTREX) 500 mg tablet Take 1 tablet by mouth two times a day. predniSONE (DELTASONE) 5 mg tablet Take 1-2 tablets by mouth once daily. Evamchf-Enzakiamr-Lqrm tab Calcium 1200 mg once daily. Magnesium 500 mg once daily Zinc - 50 mg once daily. Ascorbic Acid (VITAMIN C) 1,000 mg tablet Take 1 tablet by mouth once daily. Cyanocobalamin (VITAMIN B-12) 1,000 mcg TbER Take 1 mcg by mouth once daily. pyridoxine, vitamin B6, (VITAMIN B-6) 100 mg tablet Take 1 tablet by mouth once daily. No current facility-administered medications for this visit. FAMILY HISTORY Problem Relation Age of Onset Diabetes Mother non insulin dependent Blood Disease Mother 84 multiple myeloma None Father Social History Tobacco Use Smoking status: Former Smokeless tobacco: Never Tobacco comments: quit 15 years ago Substance Use Topics Alcohol use: No Comment: quit 3 years ago Drug use: Yes Comment: former heroin addict REVIEW OF SYSTEMS GENERAL: No weight loss, malaise or fevers/chills HEENT: Negative for frequent or significant headaches, No changes in hearing or vision. NECK: Negative for lumps, goiter, pain and significant neck swelling RESPIRATORY: Negative for cough, hemoptysis, wheezing, dyspnea or shortness of breath CARDIOVASCULAR: Negative for chest pain, leg swelling, orthopnea, or palpitations GI: No nausea, vomiting, or diarrhea/constipation. No hematochezia/melena. No heartburn or reflux symptoms. : No history of dysuria, frequency or incontinence MUSCULOSKELETAL: Negative for joint pain or swelling. SKIN: + Skin Lesions ENDOCRINE: Negative for cold or heat intolerance, polyuria, polydipsia and goiter NEURO: + Memory changes MOOD: Negative for depression, anxiety, or suicidal ideation. EXAM: BP 118/80 Pulse 98 Resp 16 Wt 116 kg (255 lb 11.7 oz) SpO2 96% BMI 38.09 kg/m? PHYSICAL EXAM: General Appearance: Well appearing, alert, in no acute distress, well-hydrated, well nourished. Skin: Mole skin color, with partial darkening noted to right upper cheek, some crusting noted, no erythema., Dark-colored mole noted on right upper shoulder, irregular border, mild crusting. No seeping noted. Head: Normocephalic, no masses, lesions, tenderness or abnormalities. Eyes: Anicteric sclera. Extraocular movements are intact. Lungs: Lungs clear to auscultation. No wheezing, rhonchi, rales. Heart: RRR without murmur, gallop, or rubs. No ectopy. Extremities: No deformities, edema, skin discoloration, clubbing or cyanosis. Good capillary refill. Peripheral Pulses: Normal, Capillary refill <2secs, strong peripheral pulses, Pulses palpable. Neurologic: Gait normal. Sensation grossly intact. ASSESSMENT/PLAN: 1. Skin lesions - ICD9: 709.9, ICD10: L98.9 (primary diagnosis) - Recommend consult with dermatology for further evaluation - CONSULT TO DERMA (more content not included)... [facility] 02-18-2024 Telephone encounter Note OK to refill as ordered Adelita Marcano MD [facility] 02-18-2024 Miscellaneous Notes OK to refill as ordered Adelita Marcano MD documented in this encounter [facility] 02-18-2024 Telephone encounter Note Pt is already scheduled with Laurie Esteves tomorrow to discuss treatment or removal. Susan Robertson MA [facility] 02-18-2024 Miscellaneous Notes Pt is already scheduled with Laurie Esteves tomorrow to discuss treatment or removal. Susan Robertson MA OK to schedule here and the lesions can be evaluated to see if treatment in our office is appropriate Adelita Marcano MD OK to scheduled pt with PCP for appt to freeze a mole? Patient called in stating that he wanted to schedule an appointment with someone in our office to have a mole on his face and right shoulder froze off. He stated that he was told this could be done in office. He would like to come here and have them removed rather then having to go through dermatology if that is possible. He also stated that if he has to see dermatology then he will be going to someone here local to [place] because he does not want to drive further to see [facility]ology. The playbook for scheduling for the department does not say anything about mole just skin tags and warts. Please confirm if there are any providers here within the department that would see him to have these 2 moles froze off. 1 mole on the right side of his face and the other is on his right shoulder Agueda Samaniego documented in this encounter [facility] 02-18-2024 Telephone encounter Note OK to schedule here and the lesions can be evaluated to see if treatment in our office is appropriate Adelita Marcano MD [facility] 02-18-2024 Telephone encounter Note OK to scheduled pt with PCP for appt to freeze a mole? [facility] 02-17-2024 Telephone encounter Note Prescription Refill Information The patient has been identified by name and date of : Yes Caregiver verified no other encounters exist for this prescription request: Yes Caregiver confirmed with patient/requestor that no other refills are due, in the near future, with this provider at this time: Yes The last office visit in the department: 10/26/23 Does the patient have a future office visit with this provider/department: Yes 02/18/24 Requested Prescriptions Pending Prescriptions Disp Refills valACYclovir (VALTREX) 500 mg tablet 6 tablet 5 Sig: Take 1 tablet by mouth two times a day for 3 days. Geri Phoenix LPN February 17, 2024 5:32 PM [facility] 02-17-2024 Miscellaneous Notes Prescription Refill Information The patient has been identified by name and date of : Yes Caregiver verified no other encounters exist for this prescription request: Yes Caregiver confirmed with patient/requestor that no other refills are due, in the near future, with this provider at this time: Yes The last office visit in the department: 10/26/23 Does the patient have a future office visit with this provider/department: Yes 02/18/24 Requested Prescriptions Pending Prescriptions Disp Refills valACYclovir (VALTREX) 500 mg tablet 6 tablet 5 Sig: Take 1 tablet by mouth two times a day for 3 days. Geri Phoenix LPN February 17, 2024 5:32 PM documented in this encounter [facility] 02-17-2024 Telephone encounter Note Patient called in stating that he wanted to schedule an appointment with someone in our office to have a mole on his face and right shoulder froze off. He stated that he was told this could be done in office. He would like to come here and have them removed rather then having to go through dermatology if that is possible. He also stated that if he has to see dermatology then he will be going to someone here local to [place] because he does not want to drive further to see [facility]ology. The playbook for scheduling for the department does not say anything about mole just skin tags and warts. Please confirm if there are any providers here within the department that would see him to have these 2 moles froze off. 1 mole on the right side of his face and the other is on his right shoulder Agueda Chacon Pss [facility] 02-04-2024 Telephone encounter Note OK to refill as ordered Adelita Marcano MD [facility] 02-04-2024 Miscellaneous Notes OK to refill as ordered Adelita Marcano MD Patient has been identified by name and date of : Yes, Patient phones for refill(s): Requested Prescriptions Pending Prescriptions Disp Refills atorvastatin (LIPITOR) 20 mg tablet 30 tablet 5 Sig: take 1 tablet by mouth once daily at bedtime for cholesterol Date of last office visit in primary care: 10/26/2023 Date of next office visit in primary care: 04/25/2024 Please advise. Thank you. Yvonne Wilson. documented in this encounter [facility] 02-04-2024 Telephone encounter Note OK to refill as ordered Adelita Marcano MD [facility] 02-04-2024 Miscellaneous Notes OK to refill as ordered Adelita Marcano MD Date of last office visit in primary care: 10/26/2023 Date of next office visit in primary care: 04/25/2024 Patient called to check Rx requests were received. documented in this encounter [facility] 02-04-2024 Telephone encounter Note Date of last office visit in primary care: 10/26/2023 Date of next office visit in primary care: 04/25/2024 [facility] 02-04-2024 Telephone encounter Note Patient called to check Rx requests were received. [facility] 02-04-2024 Telephone encounter Note Patient has been identified by name and date of : Yes, Patient phones for refill(s): Requested Prescriptions Pending Prescriptions Disp Refills atorvastatin (LIPITOR) 20 mg tablet 30 tablet 5 Sig: take 1 tablet by mouth once daily at bedtime for cholesterol Date of last office visit in primary care: 10/26/2023 Date of next office visit in primary care: 04/25/2024 Please advise. Thank you. Yvonne Wilson. [facility] 01-22-2024 Telephone encounter Note The following approved medication requests have been transmitted electronically. Requested Prescriptions Signed Prescriptions Disp Refills valACYclovir (VALTREX) 500 mg tablet 6 tablet 5 Sig: Take 1 tablet by mouth two times a day for 3 days. Tristen Brown APRN.CNP [facility] 01-22-2024 Miscellaneous Notes The following approved medication requests have been transmitted electronically. Requested Prescriptions Signed Prescriptions Disp Refills valACYclovir (VALTREX) 500 mg tablet 6 tablet 5 Sig: Take 1 tablet by mouth two times a day for 3 days. Tristen Brown APRN.CNP Prescription Refill Information The patient has been identified by name and date of : Yes Caregiver verified no other encounters exist for this prescription request: Yes Caregiver confirmed with patient/requestor that no other refills are due, in the near future, with this provider at this time: Yes The last office visit in the department: 10/26/23 Does the patient have a future office visit with this provider/department: Yes Requested Prescriptions Pending Prescriptions Disp Refills valACYclovir (VALTREX) 500 mg tablet 6 tablet 5 Sig: Take 1 tablet by mouth two times a day for 3 days. Glendy Escalera MA January 22, 2024 1:03 PM documented in this encounter [facility] 01-22-2024 Telephone encounter Note Prescription Refill Information The patient has been identified by name and date of : Yes Caregiver verified no other encounters exist for this prescription request: Yes Caregiver confirmed with patient/requestor that no other refills are due, in the near future, with this provider at this time: Yes The last office visit in the department: 10/26/23 Does the patient have a future office visit with this provider/department: Yes Requested Prescriptions Pending Prescriptions Disp Refills valACYclovir (VALTREX) 500 mg tablet 6 tablet 5 Sig: Take 1 tablet by mouth two times a day for 3 days. Glendy Escalera MA January 22, 2024 1:03 PM [facility] 10-26-2023 Instructions Cindy Lloyd APRN.CNP - 10/26/2023 3:05 PM EDT We can fax previous referral to Dr. Pizarro if he would like to stay local. Reschedule with neuro. Recheck in 6 months. documented in this encounter [facility] 10-26-2023 Note HNO ID: [id number] Author: CINDY LLOYD APRN.BLANKER OPERATOR Service: ? Author Type: Nurse Practitioner Type: Progress Notes Filed: 10/26/2023 17:29 Note Text: This is a 67 year old male who presents today with: Patient presents with: Recheck HISTORY OF PRESENT ILLNESS: Aaron Adler is a 67 year old male. Patient presents with: Recheck Pt presents today for recheck. RA: Not following with rheumatology. Has an upcoming appt later this year with rheum, but patient prefers to stay local. HYPERLIPIDEMIA: Patient is taking medications: Yes. Patient is watching diet: No. Refers eats pretty healthy, but does have some fast food. Patient denies myalgias: nothing out of the ordinary. . Patient denies gi upset: No GERD: Controlled w/ PPI. BPH: Urinating okay. Memory Refers that it is still bad. He was supposed to have an appt with Dr. El earlier this month, but it was cancelled. It was not rescheduled. PAST MEDICAL HISTORY: PAST MEDICAL HISTORY Diagnosis Date Arrhythmia Arthralgia Diarrhea Epistaxis Headache(784.0) Hyperlipidemia Mental disorder Mouth sores Other, mixed, or unspecified nondependent drug abuse, unspecified hx heroin addiction PMH - PAST MEDICAL HISTORY OF arthritis S/P ablation operation for arrhythmia 1999 Unspecified constipation PAST SURGICAL HISTORY Procedure Laterality Date COLONOSCOPY FLX DX W/COLLJ SPEC WHEN PFRMD 08/20/2006 Colonoscopy NEUROPLASTY AND/TRANSPOS MEDIAN NRV CARPAL TUNNE 08/07/2005 Carpal tunnel decomp Left PAST SURGICAL HISTORY OF Right 1985 foot surgery/ bone removal d/t infection UNLISTED CARDIAC SURG PROCEDURE 1999 cathetarization for tachycardia ALLERGIES Meloxicam, Bactrim [Sulfamethoxazole], Niacin, and Trimethoprim MEDICATIONS Current Outpatient Medications Medication Sig atorvastatin (LIPITOR) 20 mg tablet take 1 tablet by mouth once daily at bedtime for cholesterol omeprazole (PRILOSEC) 40 mg capsule Take 1 capsule by mouth once daily. (Patient not taking: Reported on 04/10/2023) predniSONE (DELTASONE) 5 mg tablet Take 1-2 tablets by mouth once daily. Terazosin HCl (HYTRIN) 10 mg capsule Take 1 capsule by mouth once daily. Dqltjbq-Lzwtacnsv-Mwcc tab Calcium 1200 mg once daily. Magnesium 500 mg once daily Zinc - 50 mg once daily. Ascorbic Acid (VITAMIN C) 1,000 mg tablet Take 1 tablet by mouth once daily. Cyanocobalamin (VITAMIN B-12) 1,000 mcg TbER Take 1 mcg by mouth once daily. pyridoxine, vitamin B6, (VITAMIN B-6) 100 mg tablet Take 1 tablet by mouth once daily. No current facility-administered medications for this visit. FAMILY HISTORY Problem Relation Age of Onset Diabetes Mother non insulin dependent Blood Disease Mother 84 multiple myeloma None Father Social History Tobacco Use Smoking status: Former Smokeless tobacco: Never Tobacco comments: quit 15 years ago Substance Use Topics Alcohol use: No Comment: quit 3 years ago Drug use: Yes Comment: former heroin addict EXAM: BP 122/84 Pulse 83 Resp 16 SpO2 94% PHYSICAL EXAM: General Appearance: Well appearing, alert, in no acute distress, well-hydrated, well nourished.. Skin: Skin color, texture, turgor normal, no suspicious rashes or lesions. Head: Normocephalic, no masses, lesions, tenderness or abnormalities. Eyes: Anicteric sclera. Extraocular movements are intact. . Lungs: Lungs clear to auscultation. No wheezing, rhonchi, rales.. Heart: RRR without murmur, gallop, or rubs. No ectopy. Extremities: No deformities, edema, skin discoloration, clubbing or cyanosis. Good capillary refill. Neurologic: Gait normal. ASSESSMENT/PLAN: 1. Hypertriglyceridemia - ICD9: 272.1, ICD10: E78.1 (primary diagnosis) - Controlled - Continue current medications - Counseled on healthy diet and regular exercise 2. Encounter for immunization - ICD9: V03.89, ICD10: Z23 - PNEUMOCOCCAL VACCINE, 20 VALENT (PREVNAR 20) 3. 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) - ICD9: 714.0, ICD10: M05.711 Chronic prednisone use. Not following with rheum. Would like to stay local. 4. BPH with urinary obstruction - ICD9: 600.01, 599.69, ICD10: N40.1, N13.8 Stable on medication. 5. Cognitive impairment, mild, so stated - ICD9: 331.83, ICD10: G31.84 Reschedule w/ neuro. 6. GERD without esophagitis - ICD9: 530.81, ICD10: K21.9 - stable on PPI. Discussed treatment plan and patient voices understanding. Patient's questions answered appropriately. Medications and potential side effects were discussed and patient voices understanding. Return to the office as scheduled or as needed for worsening/no improvement. Cindy Lloyd APRN.BLANKER OPERATOR [facility] 10-26-2023 History of Present illness Narrative This is a 67 year old male who presents today with: Patient presents with: Recheck HISTORY OF PRESENT ILLNESS: Aaron Adler is a 67 year old male. Patient presents with: Recheck Pt presents today for recheck. RA: Not following with rheumatology. Has an upcoming appt later this year with rheum, but patient prefers to stay local. HYPERLIPIDEMIA: Patient is taking medications: Yes. Patient is watching diet: No. Refers eats pretty healthy, but does have some fast food. Patient denies myalgias: nothing out of the ordinary. . Patient denies gi upset: No GERD: Controlled w/ PPI. BPH: Urinating okay. Memory Refers that it is still bad. He was supposed to have an appt with Dr. El earlier this month, but it was cancelled. It was not rescheduled. PAST MEDICAL HISTORY: PAST MEDICAL HISTORY Diagnosis Date Arrhythmia Arthralgia Diarrhea Epistaxis Headache(784.0) Hyperlipidemia Mental disorder Mouth sores Other, mixed, or unspecified nondependent drug abuse, unspecified hx heroin addiction PMH - PAST MEDICAL HISTORY OF arthritis S/P ablation operation for arrhythmia 1999 Unspecified constipation PAST SURGICAL HISTORY Procedure Laterality Date COLONOSCOPY FLX DX W/COLLJ SPEC WHEN PFRMD 08/20/2006 Colonoscopy NEUROPLASTY &/TRANSPOS MEDIAN NRV CARPAL TUNNE 08/07/2005 Carpal tunnel decomp Left PAST SURGICAL HISTORY OF Right 1985 foot surgery/ bone removal d/t infection UNLISTED CARDIAC SURG PROCEDURE 2000 cathetarization for tachycardia ALLERGIES Meloxicam, Bactrim [Sulfamethoxazole], Niacin, and Trimethoprim MEDICATIONS Current Outpatient Medications Medication Sig atorvastatin (LIPITOR) 20 mg tablet take 1 tablet by mouth once daily at bedtime for cholesterol omeprazole (PRILOSEC) 40 mg capsule Take 1 capsule by mouth once daily. (Patient not taking: Reported on 04/10/2023) predniSONE (DELTASONE) 5 mg tablet Take 1-2 tablets by mouth once daily. Terazosin HCl (HYTRIN) 10 mg capsule Take 1 capsule by mouth once daily. Xrtltxc-Tbfxasukl-Eqxz tab Calcium 1200 mg once daily. Magnesium 500 mg once daily Zinc - 50 mg once daily. Ascorbic Acid (VITAMIN C) 1,000 mg tablet Take 1 tablet by mouth once daily. Cyanocobalamin (VITAMIN B-12) 1,000 mcg TbER Take 1 mcg by mouth once daily. pyridoxine, vitamin B6, (VITAMIN B-6) 100 mg tablet Take 1 tablet by mouth once daily. No current facility-administered medications for this visit. FAMILY HISTORY Problem Relation Age of Onset Diabetes Mother non insulin dependent Blood Disease Mother 84 multiple myeloma None Father Social History Tobacco Use Smoking status: Former Smokeless tobacco: Never Tobacco comments: quit 15 years ago Substance Use Topics Alcohol use: No Comment: quit 3 years ago Drug use: Yes Comment: former heroin addict EXAM: BP 122/84 Pulse 83 Resp 16 SpO2 94% PHYSICAL EXAM: General Appearance: Well appearing, alert, in no acute distress, well-hydrated, well nourished.. Skin: Skin color, texture, turgor normal, no suspicious rashes or lesions. Head: Normocephalic, no masses, lesions, tenderness or abnormalities. Eyes: Anicteric sclera. Extraocular movements are intact. . Lungs: Lungs clear to auscultation. No wheezing, rhonchi, rales.. Heart: RRR without murmur, gallop, or rubs. No ectopy. Extremities: No deformities, edema, skin discoloration, clubbing or cyanosis. Good capillary refill. Neurologic: Gait normal. ASSESSMENT/PLAN: 1. Hypertriglyceridemia - ICD9: 272.1, ICD10: E78.1 (primary diagnosis) - Controlled - Continue current medications - Counseled on healthy diet and regular exercise 2. Encounter for immunization - ICD9: V03.89, ICD10: Z23 - PNEUMOCOCCAL VACCINE, 20 VALENT (PREVNAR 20) 3. 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) - ICD9: 714.0, ICD10: M05.711 Chronic prednisone use. Not following with rheum. Would like to stay local. 4. BPH with urinary obstruction - ICD9: 600.01, 599.69, ICD10: N40.1, N13.8 Stable on medication. 5. Cognitive impairment, mild, so stated - ICD9: 331.83, ICD10: G31.84 Reschedule w/ neuro. 6. GERD without esophagitis - ICD9: 530.81, ICD10: K21.9 - stable on PPI. Discussed treatment plan and patient voices understanding. Patient's questions answered appropriately. Medications and potential side effects were discussed and patient voices understanding. Return to the office as scheduled or as needed for worsening/no improvement. Cindy Lloyd APRN.BLANKER OPERATOR documented in this encounter [facility] 08-21-2023 Telephone encounter Note Pt notified. Susan Robertson MA [facility] 08-21-2023 Miscellaneous Notes Pt notified. Susan Robertson MA Orders have been entered, he may come in any time to complete. Thank you. Laurie Esteves APRN.BLANKER OPERATOR Patient calls and notified of results and providers instructions. Patient verbalizes understanding and is willing to do the recommended testing for further evaluation. He reports HIV would be next to impossible but will do that as well. Carla Snyder, ORLIN TC to pt. LM to call office, ask for triage nurse to get results. Geri Phoenix LPN Can you please call the patient and let him know that I reviewed his lab results. Labs were all relatively normal, glucose just mildly elevated, A1c 5.6. Prediabetes starts at 5.7. At this time I do not see any causes for his shakiness and sweating. I would recommend considering a HIV lab test, chest x-ray, and urine testing for further evaluation. If he is agreeable I can place those orders. Please let me know if he has any additional questions. Thank you. Laurie Esteves APRN.MADI documented in this encounter [facility] 08-21-2023 Telephone encounter Note Orders have been entered, he may come in any time to complete. Thank you. Laurie Esteves APRN.BLANKER OPERATOR [facility] 08-21-2023 Telephone encounter Note Patient calls and notified of results and providers instructions. Patient verbalizes understanding and is willing to do the recommended testing for further evaluation. He reports HIV would be next to impossible but will do that as well. Carla Sndyer, RN [facility] 08-21-2023 Telephone encounter Note TC to pt. LM to call office, ask for triage nurse to get results. Geri Phoenix LPN [facility] 08-21-2023 Telephone encounter Note Can you please call the patient and let him know that I reviewed his lab results. Labs were all relatively normal, glucose just mildly elevated, A1c 5.6. Prediabetes starts at 5.7. At this time I do not see any causes for his shakiness and sweating. I would recommend considering a HIV lab test, chest x-ray, and urine testing for further evaluation. If he is agreeable I can place those orders. Please let me know if he has any additional questions. Thank you. Laurie Esteves APRN.CNP [facility] 08-20-2023 Instructions Laurie Esteves APRN.CNP - 08/20/2023 12:48 PM EDT Get labs completed Recommend follow up with Rheumatology, local [place] Dr. Akbar, [facility] Continue to take all medication as prescribed. Follow up pending test results. documented in this encounter [facility] 08-20-2023 History of Present illness Narrative This is a 67 year old male who presents today with: Patient presents with: Acute Visit: Shakines and fatique HISTORY OF PRESENT ILLNESS: Aaron Adler is a 67 year old male. Patient presents with: Acute Visit: Debbie and fatique Here in the office for express care follow-up. Was seen in express care for shakiness and fatigue. Patient has a history of rheumatoid arthritis. Was following with rheumatology in the past. Has been taking prednisone 5 mg, 1 to 2 tablets daily for the past 10 years? PCP has been filling medication. Per discussion with express care provider patient was adamant he did not want to stop this medication. Glucose was 117 in express care, no signs of hypoglycemia. Refers that shakiness started a couple days ago. Increased sweating. Hand and knee pain, seems to be stable with prednisone use. Denies chest pain, palpitations, or dizziness. PAST MEDICAL HISTORY: PAST MEDICAL HISTORY Diagnosis Date Arrhythmia Arthralgia Diarrhea Epistaxis Headache(784.0) Hyperlipidemia Mental disorder Mouth sores Other, mixed, or unspecified nondependent drug abuse, unspecified hx heroin addiction PMH - PAST MEDICAL HISTORY OF arthritis S/P ablation operation for arrhythmia 1999 Unspecified constipation PAST SURGICAL HISTORY Procedure Laterality Date COLONOSCOPY FLX DX W/COLLJ SPEC WHEN PFRMD 08/20/2006 Colonoscopy NEUROPLASTY &/TRANSPOS MEDIAN NRV CARPAL TUNNE 08/07/2005 Carpal tunnel decomp Left PAST SURGICAL HISTORY OF Right 1985 foot surgery/ bone removal d/t infection UNLISTED CARDIAC SURG PROCEDURE 1999 cathetarization for tachycardia ALLERGIES Meloxicam, Bactrim [Sulfamethoxazole], Niacin, and Trimethoprim MEDICATIONS Current Outpatient Medications Medication Sig atorvastatin (LIPITOR) 20 mg tablet take 1 tablet by mouth once daily at bedtime for cholesterol omeprazole (PRILOSEC) 40 mg capsule Take 1 capsule by mouth once daily. (Patient not taking: Reported on 04/10/2023) predniSONE (DELTASONE) 5 mg tablet Take 1-2 tablets by mouth once daily. Terazosin HCl (HYTRIN) 10 mg capsule Take 1 capsule by mouth once daily. Aodgqya-Bqsusavdp-Vhmm tab Calcium 1200 mg once daily. Magnesium 500 mg once daily Zinc - 50 mg once daily. Ascorbic Acid (VITAMIN C) 1,000 mg tablet Take 1 tablet by mouth once daily. Cyanocobalamin (VITAMIN B-12) 1,000 mcg TbER Take 1 mcg by mouth once daily. pyridoxine, vitamin B6, (VITAMIN B-6) 100 mg tablet Take 1 tablet by mouth once daily. No current facility-administered medications for this visit. FAMILY HISTORY Problem Relation Age of Onset Diabetes Mother non insulin dependent Blood Disease Mother 84 multiple myeloma None Father Social History Tobacco Use Smoking status: Former Smokeless tobacco: Never Tobacco comments: quit 15 years ago Substance Use Topics Alcohol use: No Comment: quit 3 years ago Drug use: Yes Comment: former heroin addict REVIEW OF SYSTEMS GENERAL: + Shakiness/Sweating HEENT: Negative for frequent or significant headaches, No changes in hearing or vision. NECK: Negative for lumps, goiter, pain and significant neck swelling RESPIRATORY: Negative for cough, hemoptysis, wheezing, dyspnea or shortness of breath CARDIOVASCULAR: Negative for chest pain, leg swelling, orthopnea, or palpitations GI: No nausea, vomiting, or diarrhea/constipation. No hematochezia/melena. No heartburn or reflux symptoms. : No history of dysuria, frequency or incontinence MUSCULOSKELETAL: Negative for joint pain or swelling. SKIN: Negative for lesions, rash, and itching ENDOCRINE: Negative for cold or heat intolerance, polyuria, polydipsia and goiter NEURO: No history of headaches, syncope, paralysis, seizures or tremors MOOD: Negative for depression, anxiety, or suicidal ideation. EXAM: BP 112/82 Pulse 84 Resp 16 Wt 112.9 kg (249 lb) SpO2 94% BMI 37.09 kg/m PHYSICAL EXAM: General Appearance: Well appearing, alert, in no acute distress, well-hydrated, well nourished. Skin: Skin color, texture, turgor normal, no suspicious rashes or lesions. Head: Normocephalic, no masses, lesions, tenderness or abnormalities. Eyes: Anicteric sclera. Extraocular movements are intact. Neck: Supple, no adenopathy; thyroid symmetric, normal size, no bruits. Lungs: Lungs clear to auscultation. No wheezing, rhonchi, rales. Heart: RRR without murmur, gallop, or rubs. No ectopy. Extremities: No deformities, edema, skin discoloration, clubbing or cyanosis. Good capillary refill. Peripheral Pulses: Normal, Capillary refill <2secs, strong peripheral pulses, Pulses palpable. Neurologic: Gait normal. Reflexes normal and symmetric. Sensation grossly intact. ASSESSMENT/PLAN: 1. Shakiness - ICD9: 781.0, ICD10: R25.1 (primary diagnosis) - Get labs completed - COMPLETE BLOOD COUNT AND DIFFERENTIAL - COMPREHENSIVE METABOLIC PANEL - MAGNESIUM - THYROID STIMULATING HORMONE 2. 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) - ICD9: 714.0, ICD10: M05.711 - Recommend reestablishing care with rheumatology. - Discussed the effects of fdc use of prednisone - CONSULT TO RHEUM/IMMUN DISEASE 3. Elevated glucose - ICD9: 790.29, ICD10: R73.09 - HEMOGLOBIN A1C Follow-up pending test results or sooner as needed Discussed treatment plan and patient voices understanding. Patient's questions answered appropriately. Medications and potential side effects were discussed and patient voices understanding. Laurie Esteves APRN.CNP This note was partially generated using [employer] voice recognition system. Note was reviewed for accuracy. There may be minor misspellings or grammar miscues with [employer] voice recognition. documented in this encounter [facility] 08-20-2023 Note HNO ID: [id number] Author: LAURIE ESTEVES APRN.CNP Service: ? Author Type: Nurse Practitioner Type: Progress Notes Filed: 08/20/2023 15:07 Note Text: This is a 67 year old male who presents today with: Patient presents with: Acute Visit: Shakines and fatique HISTORY OF PRESENT ILLNESS: Aaron Adler is a 67 year old male. Patient presents with: Acute Visit: Shakines and fatique Here in the office for express care follow-up. Was seen in express care for shakiness and fatigue. Patient has a history of rheumatoid arthritis. Was following with rheumatology in the past. Has been taking prednisone 5 mg, 1 to 2 tablets daily for the past 10 years? PCP has been filling medication. Per discussion with express care provider patient was adamant he did not want to stop this medication. Glucose was 117 in express care, no signs of hypoglycemia. Refers that shakiness started a couple days ago. Increased sweating. Hand and knee pain, seems to be stable with prednisone use. Denies chest pain, palpitations, or dizziness. PAST MEDICAL HISTORY: PAST MEDICAL HISTORY Diagnosis Date Arrhythmia Arthralgia Diarrhea Epistaxis Headache(784.0) Hyperlipidemia Mental disorder Mouth sores Other, mixed, or unspecified nondependent drug abuse, unspecified hx heroin addiction PMH - PAST MEDICAL HISTORY OF arthritis S/P ablation operation for arrhythmia 1999 Unspecified constipation PAST SURGICAL HISTORY Procedure Laterality Date COLONOSCOPY FLX DX W/COLLJ SPEC WHEN PFRMD 08/20/2006 Colonoscopy NEUROPLASTY AND/TRANSPOS MEDIAN NRV CARPAL TUNNE 08/07/2005 Carpal tunnel decomp Left PAST SURGICAL HISTORY OF Right 1985 foot surgery/ bone removal d/t infection UNLISTED CARDIAC SURG PROCEDURE 1999 cathetarization for tachycardia ALLERGIES Meloxicam, Bactrim [Sulfamethoxazole], Niacin, and Trimethoprim MEDICATIONS Current Outpatient Medications Medication Sig atorvastatin (LIPITOR) 20 mg tablet take 1 tablet by mouth once daily at bedtime for cholesterol omeprazole (PRILOSEC) 40 mg capsule Take 1 capsule by mouth once daily. (Patient not taking: Reported on 04/10/2023) predniSONE (DELTASONE) 5 mg tablet Take 1-2 tablets by mouth once daily. Terazosin HCl (HYTRIN) 10 mg capsule Take 1 capsule by mouth once daily. Ynxrxnu-Puwpustqk-Wlph tab Calcium 1200 mg once daily. Magnesium 500 mg once daily Zinc - 50 mg once daily. Ascorbic Acid (VITAMIN C) 1,000 mg tablet Take 1 tablet by mouth once daily. Cyanocobalamin (VITAMIN B-12) 1,000 mcg TbER Take 1 mcg by mouth once daily. pyridoxine, vitamin B6, (VITAMIN B-6) 100 mg tablet Take 1 tablet by mouth once daily. No current facility-administered medications for this visit. FAMILY HISTORY Problem Relation Age of Onset Diabetes Mother non insulin dependent Blood Disease Mother 84 multiple myeloma None Father Social History Tobacco Use Smoking status: Former Smokeless tobacco: Never Tobacco comments: quit 15 years ago Substance Use Topics Alcohol use: No Comment: quit 3 years ago Drug use: Yes Comment: former heroin addict REVIEW OF SYSTEMS GENERAL: + Shakiness/Sweating HEENT: Negative for frequent or significant headaches, No changes in hearing or vision. NECK: Negative for lumps, goiter, pain and significant neck swelling RESPIRATORY: Negative for cough, hemoptysis, wheezing, dyspnea or shortness of breath CARDIOVASCULAR: Negative for chest pain, leg swelling, orthopnea, or palpitations GI: No nausea, vomiting, or diarrhea/constipation. No hematochezia/melena. No heartburn or reflux symptoms. : No history of dysuria, frequency or incontinence MUSCULOSKELETAL: Negative for joint pain or swelling. SKIN: Negative for lesions, rash, and itching ENDOCRINE: Negative for cold or heat intolerance, polyuria, polydipsia and goiter NEURO: No history of headaches, syncope, paralysis, seizures or tremors MOOD: Negative for depression, anxiety, or suicidal ideation. EXAM: BP 112/82 Pulse 84 Resp 16 Wt 112.9 kg (249 lb) SpO2 94% BMI 37.09 kg/m? PHYSICAL EXAM: General Appearance: Well appearing, alert, in no acute distress, well-hydrated, well nourished. Skin: Skin color, texture, turgor normal, no suspicious rashes or lesions. Head: Normocephalic, no masses, lesions, tenderness or abnormalities. Eyes: Anicteric sclera. Extraocular movements are intact. Neck: Supple, no adenopathy; thyroid symmetric, normal size, no bruits. Lungs: Lungs clear to auscultation. No wheezing, rhonchi, rales. Heart: RRR without murmur, gallop, or rubs. No ectopy. Extremities: No deformities, edema, skin discoloration, clubbing or cyanosis. Good capillary refill. Peripheral Pulses: Normal, Capillary refill <2secs, strong peripheral pulses, Pulses palpable. Neurologic: Gait normal. Reflexes normal and symmetric. Sensation grossly intact. ASSESSMENT/PLAN: 1. Shakiness - ICD9: 781.0, ICD10: (more content not included)... [facility] 08-18-2023 Note HNO ID: [id number] Author: COSMO VILLALOBOS APRN.BLANKER OPERATOR Service: ? Author Type: Nurse Practitioner Type: Progress Notes Filed: 08/18/2023 17:54 Note Text: Subjective HPI Nontoxic-appearing male presents urgent care chief complaint memory issues fatigue and shakiness. Duration of symptoms 12 days. Associated symptoms listed above. Patient states shortly started after picking up his prescription of prednisone. Has been on prednisone greater than 10 years. States felt different after taking new prescription prednisone. States he is not worsening and not improving. Denies any pain. Denies any dizziness visual changes headache cough fever body aches chills nausea vomiting abdominal pain chest pain shortness of breath arrhythmias. Past medical history prescription medications allergies reviewed. .Patient presents with: Allergic Reaction: Possibly from prednisone, patient says is a different pill than he normally receives, has been on for 10 years PAST MEDICAL HISTORY Diagnosis Date Arrhythmia Arthralgia Diarrhea Epistaxis Headache(784.0) Hyperlipidemia Mental disorder Mouth sores Other, mixed, or unspecified nondependent drug abuse, unspecified hx heroin addiction PMH - PAST MEDICAL HISTORY OF arthritis S/P ablation operation for arrhythmia 1999 Unspecified constipation PAST SURGICAL HISTORY Procedure Laterality Date COLONOSCOPY FLX DX W/COLLJ SPEC WHEN PFRMD 08/20/2006 Colonoscopy NEUROPLASTY AND/TRANSPOS MEDIAN NRV CARPAL TUNNE 08/07/2005 Carpal tunnel decomp Left PAST SURGICAL HISTORY OF Right 1985 foot surgery/ bone removal d/t infection UNLISTED CARDIAC SURG PROCEDURE 1999 cathetarization for tachycardia ALLERGIES Meloxicam, Bactrim [Sulfamethoxazole], Niacin, and Trimethoprim MEDICATIONS atorvastatin (LIPITOR) 20 mg tablet take 1 tablet by mouth once daily at bedtime for cholesterol predniSONE (DELTASONE) 5 mg tablet Take 1-2 tablets by mouth once daily. Terazosin HCl (HYTRIN) 10 mg capsule Take 1 capsule by mouth once daily. Ogsveay-Bkwmgmkmf-Jifz tab Calcium 1200 mg once daily. Magnesium 500 mg once daily Zinc - 50 mg once daily. Ascorbic Acid (VITAMIN C) 1,000 mg tablet Take 1 tablet by mouth once daily. Cyanocobalamin (VITAMIN B-12) 1,000 mcg TbER Take 1 mcg by mouth once daily. pyridoxine, vitamin B6, (VITAMIN B-6) 100 mg tablet Take 1 tablet by mouth once daily. omeprazole (PRILOSEC) 40 mg capsule Take 1 capsule by mouth once daily. (Patient not taking: Reported on 04/10/2023) FAMILY HISTORY Problem Relation Age of Onset Diabetes Mother non insulin dependent Blood Disease Mother 84 multiple myeloma None Father Social History Tobacco Use Smoking status: Former Smokeless tobacco: Never Tobacco comments: quit 15 years ago Substance Use Topics Alcohol use: No Comment: quit 3 years ago Drug use: Yes Comment: former heroin addict BP 149/83 Pulse 80 Temp 36.6 ?C (97.8 ?F) Resp 18 Wt 113.3 kg (249 lb 12.5 oz) SpO2 95% BMI 37.21 kg/m? Review of Systems Constitutional: Positive for malaise/fatigue. Negative for chills and fever. HENT: Negative for congestion, ear discharge, ear pain, sinus pain and sore throat. Eyes: Negative for blurred vision, pain, discharge and redness. Respiratory: Negative for cough, hemoptysis, sputum production, shortness of breath, wheezing and stridor. Cardiovascular: Negative for chest pain. Gastrointestinal: Negative for abdominal pain, diarrhea, nausea and vomiting. Musculoskeletal: Positive for myalgias. Skin: Negative for itching and rash. Neurological: Negative for dizziness and headaches. Objective Physical Exam Constitutional: General: He is not in acute distress. Appearance: He is not diaphoretic. HENT: Head: Normocephalic. Jaw: No trismus, tenderness, swelling or pain on movement. Mouth/Throat: Mouth: Mucous membranes are moist. Pharynx: Oropharynx is clear. Uvula midline. No pharyngeal swelling, oropharyngeal exudate, posterior oropharyngeal erythema or uvula swelling. Eyes: Conjunctiva/sclera: Conjunctivae normal. Pupils: Pupils are equal, round, and reactive to light. Cardiovascular: Rate and Rhythm: Normal rate and regular rhythm. Heart sounds: Normal heart sounds. Pulmonary: Effort: Pulmonary effort is normal. No tachypnea, accessory muscle usage or respiratory distress. Breath sounds: Normal breath sounds. No stridor. No wheezing, rhonchi or rales. Abdominal: General: There is no distension. Palpations: Abdomen is soft. Tenderness: There is no abdominal tenderness. There is no guarding or rebound. Musculoskeletal: Cervical back: Normal range of motion and neck supple. No edema, erythema, rigidity or tenderness. No pain with movement. Normal range of motion. Lymphadenopathy: Cervical: No cervical adenopathy. Skin: General: Skin is warm and dry. Neurological: General: No focal deficit present. Mental St (more content not included)... [facility] 08-18-2023 History of Present illness Narrative Subjective HPI Nontoxic-appearing male presents urgent care chief complaint memory issues fatigue and shakiness. Duration of symptoms 12 days. Associated symptoms listed above. Patient states shortly started after picking up his prescription of prednisone. Has been on prednisone greater than 10 years. States felt different after taking new prescription prednisone. States he is not worsening and not improving. Denies any pain. Denies any dizziness visual changes headache cough fever body aches chills nausea vomiting abdominal pain chest pain shortness of breath arrhythmias. Past medical history prescription medications allergies reviewed. .Patient presents with: Allergic Reaction: Possibly from prednisone, patient says is a different pill than he normally receives, has been on for 10 years PAST MEDICAL HISTORY Diagnosis Date Arrhythmia Arthralgia Diarrhea Epistaxis Headache(784.0) Hyperlipidemia Mental disorder Mouth sores Other, mixed, or unspecified nondependent drug abuse, unspecified hx heroin addiction PMH - PAST MEDICAL HISTORY OF arthritis S/P ablation operation for arrhythmia 1999 Unspecified constipation PAST SURGICAL HISTORY Procedure Laterality Date COLONOSCOPY FLX DX W/COLLJ SPEC WHEN PFRMD 08/20/2006 Colonoscopy NEUROPLASTY &/TRANSPOS MEDIAN NRV CARPAL TUNNE 08/07/2005 Carpal tunnel decomp Left PAST SURGICAL HISTORY OF Right 1985 foot surgery/ bone removal d/t infection UNLISTED CARDIAC SURG PROCEDURE 2000 cathetarization for tachycardia ALLERGIES Meloxicam, Bactrim [Sulfamethoxazole], Niacin, and Trimethoprim MEDICATIONS atorvastatin (LIPITOR) 20 mg tablet take 1 tablet by mouth once daily at bedtime for cholesterol predniSONE (DELTASONE) 5 mg tablet Take 1-2 tablets by mouth once daily. Terazosin HCl (HYTRIN) 10 mg capsule Take 1 capsule by mouth once daily. Mopfuac-Rsgtcrexh-Pdpe tab Calcium 1200 mg once daily. Magnesium 500 mg once daily Zinc - 50 mg once daily. Ascorbic Acid (VITAMIN C) 1,000 mg tablet Take 1 tablet by mouth once daily. Cyanocobalamin (VITAMIN B-12) 1,000 mcg TbER Take 1 mcg by mouth once daily. pyridoxine, vitamin B6, (VITAMIN B-6) 100 mg tablet Take 1 tablet by mouth once daily. omeprazole (PRILOSEC) 40 mg capsule Take 1 capsule by mouth once daily. (Patient not taking: Reported on 04/10/2023) FAMILY HISTORY Problem Relation Age of Onset Diabetes Mother non insulin dependent Blood Disease Mother 84 multiple myeloma None Father Social History Tobacco Use Smoking status: Former Smokeless tobacco: Never Tobacco comments: quit 15 years ago Substance Use Topics Alcohol use: No Comment: quit 3 years ago Drug use: Yes Comment: former heroin addict BP 149/83 Pulse 80 Temp 36.6 C (97.8 F) Resp 18 Wt 113.3 kg (249 lb 12.5 oz) SpO2 95% BMI 37.21 kg/m Review of Systems Constitutional: Positive for malaise/fatigue. Negative for chills and fever. HENT: Negative for congestion, ear discharge, ear pain, sinus pain and sore throat. Eyes: Negative for blurred vision, pain, discharge and redness. Respiratory: Negative for cough, hemoptysis, sputum production, shortness of breath, wheezing and stridor. Cardiovascular: Negative for chest pain. Gastrointestinal: Negative for abdominal pain, diarrhea, nausea and vomiting. Musculoskeletal: Positive for myalgias. Skin: Negative for itching and rash. Neurological: Negative for dizziness and headaches. Objective Physical Exam Constitutional: General: He is not in acute distress. Appearance: He is not diaphoretic. HENT: Head: Normocephalic. Jaw: No trismus, tenderness, swelling or pain on movement. Mouth/Throat: Mouth: Mucous membranes are moist. Pharynx: Oropharynx is clear. Uvula midline. No pharyngeal swelling, oropharyngeal exudate, posterior oropharyngeal erythema or uvula swelling. Eyes: Conjunctiva/sclera: Conjunctivae normal. Pupils: Pupils are equal, round, and reactive to light. Cardiovascular: Rate and Rhythm: Normal rate and regular rhythm. Heart sounds: Normal heart sounds. Pulmonary: Effort: Pulmonary effort is normal. No tachypnea, accessory muscle usage or respiratory distress. Breath sounds: Normal breath sounds. No stridor. No wheezing, rhonchi or rales. Abdominal: General: There is no distension. Palpations: Abdomen is soft. Tenderness: There is no abdominal tenderness. There is no guarding or rebound. Musculoskeletal: Cervical back: Normal range of motion and neck supple. No edema, erythema, rigidity or tenderness. No pain with movement. Normal range of motion. Lymphadenopathy: Cervical: No cervical adenopathy. Skin: General: Skin is warm and dry. Neurological: General: No focal deficit present. Mental Status: He is alert and oriented to person, place, and time. Mental status is at baseline. Motor: No weakness. Coordination: Coordination normal. Gait: Gait normal. ASSESSMENT/PLAN: 1. Fatigue, unspecified type - ICD9: 780.79, ICD10: R53.83 - GLUCOSE, BLOOD (POC) Diagnosed with fatigue. Glucose 117 in office. Unable obtain labs tonight. Will follow-up with PCP in the morning to discuss possible medication reaction. Patient was educated on supportive therapies. Patient will follow up with primary care provider as needed. Patient was instructed to immediately proceed to emergency room for any new, worsening, or symptoms lasting longer than anticipated. The patient's clinical presentation is otherwise unremarkable at this time. Based on exam and clinical finding, the patient is stable for discharge. Plan of care was discussed with patient. Patient verbalizes understanding and agrees to plan of care. This note was generated using [employer] software. It may contain errors in wording, punctuation, or spelling. Cosmo Villalobos APRN.MADI documented in this encounter [facility] 08-11-2023 Telephone encounter Note The following approved medication requests have been transmitted electronically. Requested Prescriptions Pending Prescriptions Disp Refills atorvastatin (LIPITOR) 20 mg tablet 30 tablet 5 Sig: take 1 tablet by mouth once daily at bedtime for cholesterol Tristen Brown APRN.CNP [facility] 08-11-2023 Miscellaneous Notes The following approved medication requests have been transmitted electronically. Requested Prescriptions Pending Prescriptions Disp Refills atorvastatin (LIPITOR) 20 mg tablet 30 tablet 5 Sig: take 1 tablet by mouth once daily at bedtime for cholesterol Tristen Brown APRN.CNP Patient has been identified by name and date of : Yes, Patient phones for refill(s): Requested Prescriptions Pending Prescriptions Disp Refills atorvastatin (LIPITOR) 20 mg tablet 30 tablet 5 Sig: take 1 tablet by mouth once daily at bedtime for cholesterol Date of last office visit in primary care: 01/26/2023 Date of next office visit in primary care: Visit date not found Please advise. Thank you. Yvonne Wilson. documented in this encounter [facility] 08-11-2023 Telephone encounter Note Patient has been identified by name and date of : Yes, Patient phones for refill(s): Requested Prescriptions Pending Prescriptions Disp Refills atorvastatin (LIPITOR) 20 mg tablet 30 tablet 5 Sig: take 1 tablet by mouth once daily at bedtime for cholesterol Date of last office visit in primary care: 01/26/2023 Date of next office visit in primary care: Visit date not found Please advise. Thank you. Yvonne Wilson. [facility] 08-10-2023 Telephone encounter Note TC to patient to clarify appointment for Thursday08/11/2023 with Tristen Brown: memory issues. Unable to reach. Left VM to return call to office. Please advise of below. According to Neurology consult 04/10/23 for Memory Loss: Assessment and Plan: ASSESSMENT/PLAN: 1. MCI (mild cognitive impairment) - ICD9: 331.83, ICD10: G31.84 (primary diagnosis) 2. Memory loss - ICD9: 780.93, ICD10: R41.3 Patient with complaint of progressive memory loss over past 2 years, but not to the extent that it is limiting his daily activities in any way. Metabolic workup unremarkable. MRI and history not suggestive of NPH. No evidence of vascular etiology on MRI and symptoms not of an abrupt/acute nature. Did review MRI brain findings with pt and while most of brain volume in ~40% question if this may be an underestimate. Still discussed what possible findings mean as well as when taking into account history. At this time, at worst, would dx pt with MCI, but still could have early signs of a progressive neuro degenerative process such as Alzheimer's. I discussed further evaluation but pt declines (I.e. neuropsych, CSF, center for brain health). Discussed treatment options if needed in the future including Arciept, Namenda, or possibly infusion (he indicates he would decline the later). For now, feel appropriate to continue to monitor patient. Will have him back in 6 months for repeat evaluation. However, if stable can then be seen yearly. However, if any progression or change in symptoms patient will contact us immediately for sooner evaluation. Pt agrees with plan. Note that MRI images were reviewed with pt during visit as well as prior labs workup. Aaron El MD Patient inappropriately scheduled with primary care team, as specialist is following patient for complaints of memory loss. Further treatment is to be followed up with neurologist d/t tests/procedures/medications that may need to be started per neurologist's [facility] notes. Vee Giraldo MA [facility] 08-10-2023 Miscellaneous Notes TC to patient to clarify appointment for Thursday08/11/2023 with Tristen Brown: memory issues. Unable to reach. Left VM to return call to office. Please advise of below. According to Neurology consult 04/10/23 for Memory Loss: Assessment and Plan: ASSESSMENT/PLAN: 1. MCI (mild cognitive impairment) - ICD9: 331.83, ICD10: G31.84 (primary diagnosis) 2. Memory loss - ICD9: 780.93, ICD10: R41.3 Patient with complaint of progressive memory loss over past 2 years, but not to the extent that it is limiting his daily activities in any way. Metabolic workup unremarkable. MRI and history not suggestive of NPH. No evidence of vascular etiology on MRI and symptoms not of an abrupt/acute nature. Did review MRI brain findings with pt and while most of brain volume in ~40% question if this may be an underestimate. Still discussed what possible findings mean as well as when taking into account history. At this time, at worst, would dx pt with MCI, but still could have early signs of a progressive neuro degenerative process such as Alzheimer's. I discussed further evaluation but pt declines (I.e. neuropsych, CSF, center for brain health). Discussed treatment options if needed in the future including Arciept, Namenda, or possibly infusion (he indicates he would decline the later). For now, feel appropriate to continue to monitor patient. Will have him back in 6 months for repeat evaluation. However, if stable can then be seen yearly. However, if any progression or change in symptoms patient will contact us immediately for sooner evaluation. Pt agrees with plan. Note that MRI images were reviewed with pt during visit as well as prior labs workup. Aaron El MD Patient inappropriately scheduled with primary care team, as specialist is following patient for complaints of memory loss. Further treatment is to be followed up with neurologist d/t tests/procedures/medications that may need to be started per neurologist's [facility] notes. Vee Giraldo MA documented in this encounter [facility] 04-23-2023 Miscellaneous Notes Consult for Dermatology has been placed. Laurie Esteves APRN.BLANKER OPERATOR TC to Pt to get clarification on appt that was schedule. Pt stated he wanted the mole removed. Pt informed that [facility] does not do that procedure. A referral placed for dermatology. Geri Phoenix LPN documented in this encounter [facility] 04-22-2023 Miscellaneous Notes Bill, Medication had a year of refills. Need to call Pharm. Geri Phoenix LPN documented in this encounter [facility] 04-21-2023 Miscellaneous Notes Called pt, advised to call pharmacy as he should have a year supply that was sent in Jan 2023. Pt voiced understanding. Susan Robertson MA' Patient has been identified by name and date of : Patient phones for refill(s): Requested Prescriptions Pending Prescriptions Disp Refills omeprazole (PRILOSEC) 40 mg capsule 90 capsule 3 Sig: Take 1 capsule by mouth once daily. Date of last office visit in primary care: 01/26/2023 Date of next office visit in primary care: Visit date not found Please advise. Thank you. Keyona Canales. documented in this encounter [facility] 04-10-2023 History of Present illness Narrative NEW PATIENT (CONSULT) HISTORY AND PHYSICAL EXAM PRIMARY CARE PHYSICIAN: Adelita Marcano MD REASON FOR CONSULT: See below REFERRING PHYSICIAN: Cindy Lloyd APRN.C* CHIEF COMPLAINT: Memory loss Consultation requested by Cindy Lloyd APRN.C* for an opinion regarding chief complaint of Patient presents with: New Patient: Pt reported decline short term memory loss x 2 yrs. and my final recommendations will be communicated back to the requesting physician by way of shared medical record or letter via [place] mail. HISTORY OF PRESENT ILLNESS: Aaron Adler is a 67 year old male, BMI 37.72 kg/m2 with a PMH significant for memory loss over the past 2 years. Prior to this visit, MRI brain performed and per report (images reviewed and agree with report): * No evidence of an acute intracranial process or intracranial mass. * Mild generalized volume loss. * Hippocampal volumes at the 38 percentile when compared to age matched normal controls by quantitative analysis. * Minimal white matter disease which is nonspecific but likely reflective of chronic microvascular ischemia. * Isolated parenchymal microhemorrhage by MRI which is non-specific. TSH Date Value Ref Range Status 01/27/2023 1.980 0.270 - 4.200 mIU/L Final Vitamin B12 Date Value Ref Range Status 01/27/2023 1,379 (H) 232 - 1,245 pg/mL Final Pt descries as a progressive decline with short term memory issues. States he will read something or do something and then later in the day has limited memory of this. States has not set the house on fire and no major events. Has misplaced things through the house and cannot find them for minutes. Parents both with dementia but states they lived to be old enough to have such issues (80s and 90s). No significant ETOH history. No head traumas. Good appetite and nutritional intake. No issues driving. No ataxia. No bladder incontinence. No significant history for depression or anxiety. Modified MOCA: Immediate recall: 06/13 Number repeat: 2/2 Sentence repeat: 2 Serial: [id number] 04/11 A tap: 02/09 Abstract: 03/13 Namin/3 Orientation: 04/10/23, Yasmeen, Frederick LAYNE 07/15 Delayed recall: / (/ with vague cue). Cube copy: 02/09 Clock drawin/3 Words begin with F (60sec) iiiii iiiii iiii 02/09 TOTAL: REVIEW OF SYSTEMS GENERAL:No weight loss, malaise or fevers. HEENT:Negative for frequent or significant headaches, No changes in hearing or vision, no nose bleeds or other nasal problems NECK:Negative for lumps, goiter, pain and significant neck swelling RESPIRATORY: Negative for cough, wheezing or shortness of breath. CARDIOVASCULAR: Negative for chest pain, leg swelling or palpitations. GASTROINTESTINAL: Negative for abdominal discomfort, blood in stools or black stools or change in bowel habits GENITOURINARY: No history of dysuria, frequency or incontinence MUSCULOSKELETAL: Negative for joint pain or swelling, back pain or muscle pain. NEUROLOGIC:Negative for focal numbness or weakness, headaches and dizziness or syncope, vision changes, speech/language changes, changes in gait or falls -- besides those complaints as above in HPI. SKIN:Negative for lesions, rash, and itching. PSYCHIATRIC: Negative for sleep disturbance, mood disorder and recent psychosocial stressors. HEMATOLOGIC/LYMPHATIC/IMMUNOLOGIC: Negative for prolonged bleeding, bruising easily or swollen nodes. ENDOCRINE: Negative for cold or heat intolerance, polyuria, polydipsia and goiter. The remainder of the ROS was reviewed and is negative. LAB/IMAGING: Reviewed and include: WBC (k/uL) Date Value 01/27/2023 9.01 RBC (m/uL) Date Value 01/27/2023 4.88 Hemoglobin (g/dL) Date Value 01/27/2023 15.2 Hematocrit (%) Date Value 01/27/2023 45.6 MCV (fL) Date Value 01/27/2023 93.4 MCH (pg) Date Value 01/27/2023 31.1 MCHC (g/dL) Date Value 01/27/2023 33.3 RDW-CV (%) Date Value 01/27/2023 12.4 Platelet Count (k/uL) Date Value 01/27/2023 243 MPV (fL) Date Value 01/27/2023 9.9 Glucose (mg/dL) Date Value 01/27/2023 87 BUN (mg/dL) Date Value 01/27/2023 19 Creatinine (mg/dL) Date Value 01/27/2023 1.03 Sodium (mmol/L) Date Value 01/27/2023 142 Potassium (mmol/L) Date Value 01/27/2023 4.2 Chloride (mmol/L) Date Value 01/27/2023 106 (H) CO2 (mmol/L) Date Value 01/27/2023 25 Protein, Total (g/dL) Date Value 01/27/2023 7.0 Albumin (g/dL) Date Value 01/27/2023 4.2 Calcium, Total (mg/dL) Date Value 01/27/2023 9.6 Alkaline Phosphatase (U/L) Date Value 01/27/2023 67 Bilirubin, Total (mg/dL) Date Value 01/27/2023 0.6 AST (U/L) Date Value 01/27/2023 24 ALT (U/L) Date Value 01/27/2023 35 DESTINEY (no units) Date Value 07/21/2012 Positive (A) Rheumatoid Factor (IU/mL) Date Value 07/20/2018 <10 Hep B Surf Ab Quant (Index) Date Value 04/21/2005 <0.10 Hep C Antibody IA (no units) Date Value 07/20/2018 Positive (A) Patient did ask to have bone scan results checked - appears to be normal per report. MEDICATIONS: atorvastatin (LIPITOR) 20 mg tablet take 1 tablet by mouth once daily at bedtime for cholesterol predniSONE (DELTASONE) 5 mg tablet Take 1-2 tablets by mouth once daily. Terazosin HCl (HYTRIN) 10 mg capsule Take 1 capsule by mouth once daily. Qyrvplv-Mrxmvuojc-Ornu tab Calcium 1200 mg once daily. Magnesium 500 mg once daily Zinc - 50 mg once daily. Ascorbic Acid (VITAMIN C) 1,000 mg tablet Take 1 tablet by mouth once daily. Cyanocobalamin (VITAMIN B-12) 1,000 mcg TbER Take 1 mcg by mouth once daily. pyridoxine, vitamin B6, (VITAMIN B-6) 100 mg tablet Take 1 tablet by mouth once daily. omeprazole (PRILOSEC) 40 mg capsule Take 1 capsule by mouth once daily. (Patient not taking: Reported on 04/10/2023) HISTORIES PAST MEDICAL HISTORY Diagnosis Date Arrhythmia Arthralgia Diarrhea Epistaxis Headache(784.0) Hyperlipidemia Mental disorder Mouth sores Other, mixed, or unspecified nondependent drug abuse, unspecified hx heroin addiction PMH - PAST MEDICAL HISTORY OF arthritis S/P ablation operation for arrhythmia 2000 Unspecified constipation FAMILY HISTORY Problem Relation Age of Onset Diabetes Mother non insulin dependent Blood Disease Mother 84 multiple myeloma None Father SOCIAL HISTORY Social History Tobacco Use Smoking status: Former Smokeless tobacco: Never Tobacco comments: quit 15 years ago Substance Use Topics Alcohol use: No Comment: quit 3 years ago Drug use: Yes Comment: former heroin addict PHYSICAL EXAMINATION BP 140/88 Pulse 94 Resp 18 Wt 114.9 kg (253 lb 3.2 oz) SpO2 96% BMI 37.72 kg/m GENERAL EXAM: General appearance: NAD, pleasant. HEENT: NC/AT, nasal congestion absent, no oral lesions, membranes moist. NECK: No masses, supple. Lungs: CTA bilaterally. No wheezes present. CV: RRR nl S1, S2. No carotid bruits. Extr: No cyanosis, clubbing or edema. Skin: Cool to touch. NEUROLOGICAL EXAM: General: Awake, alert, oriented x3 (person,place,time), speech fluent, no dysarthria; comprehension, naming, repetition intact. Short and terminal block assembler memory intact. Fund of knowledge grossly normal by MOCA. CN: PERRL, fundi with no evidence of papilledema, EOMI and without nystagmus, VFF to confrontation, facial sensation and strength are normal and symmetric, hearing is intact to finger rub bilaterally, palate and tongue movements are intact and symmetric. SCM and trapezius strength normal. Motor: Normal tone, bulk and strength (5/5) bilaterally (throughout extremities x4). Coordination: FNF, PAMELA, HTS intact. No tremors. Sensation: LT, vibration, temperature intact throughout. No evidence of neglect. Gait: Stable with normal stride and arm swing. Assessment and Plan: ASSESSMENT/PLAN: 1. MCI (mild cognitive impairment) - ICD9: 331.83, ICD10: G31.84 (primary diagnosis) 2. Memory loss - ICD9: 780.93, ICD10: R41.3 Patient with complaint of progressive memory loss over past 2 years, but not to the extent that it is limiting his daily activities in any way. Metabolic workup unremarkable. MRI and history not suggestive of NPH. No evidence of vascular etiology on MRI and symptoms not of an abrupt/acute nature. Did review MRI brain findings with pt and while most of brain volume in ~40% question if this may be an underestimate. Still discussed what possible findings mean as well as when taking into account history. At this time, at worst, would dx pt with MCI, but still could have early signs of a progressive neuro degenerative process such as Alzheimer's. I discussed further evaluation but pt declines (I.e. neuropsych, CSF, center for brain health). Discussed treatment options if needed in the future including Arciept, Namenda, or possibly infusion (he indicates he would decline the later). For now, feel appropriate to continue to monitor patient. Will have him back in 6 months for repeat evaluation. However, if stable can then be seen yearly. However, if any progression or change in symptoms patient will contact us immediately for sooner evaluation. Pt agrees with plan. Note that MRI images were reviewed with pt during visit as well as prior labs workup. Aaron El MD Medical Decision Making: Problems: Moderate: New problem with uncertain prognosis Data: Unique test result(s) reviewed: 3+ Independent interpretation of test from other physician/QHCP Medical Decision Making Level: 4 - Moderate I spent a total of 45+ minutes on the date of the service which included preparing to see the patient, [id number] patient care, completing clinical documentation, obtaining and/or reviewing separately obtained history, performing a medically appropriate examination, counseling and educating the patient/family/caregiver, independently interpreting results (not separately reported), and communicating results to the patient/family/caregiver. 04/07/2023 PROMIS Global Health Physical Health Summary Physical health: Very good Everyday physical activity, ability: Mostly Fatigue: Moderate Pain level: 7 General health: Good Social activities/roles, ability: Very good Physical Health T-Score (Good) Physical Health Percentile PROMIS Global Health Mental Health Summary Quality of life: Very good Mental health (mood,thinking): Fair Social satisfaction: Good Emotional problems (anxious,depressed): Sometimes Mental Health T-Score (Good) Mental Health Percentile PHQ-9 Score: 4(Minimal Depression) PHQ-9 Self-Harm: WENDY-7 Score: (Minimal Anxiety) NEURO-QOL Cognitive Function T-Score 44(Mild Dysfunction) Neuro-Qol Cognitive Function Percentile 27 PROMIS Physical Function T-Score 42(Mild Dysfunction) PROMIS Physical Function Percentile 21 PROMIS Pain Interference T-Score 61(Moderate) PROMIS Pain Interference Percentile 14 Percentiles provide an indication of how a patient's score ranks in relation to the [place] general population. > 31st percentile is within normal limits or better *< 31st percentile is at least SD worse than population, which may be clinically relevant < 16th percentile is at least 1 SD worse than population and warrants attention 04/07/2023 Sleep Apnea Probability Snores loudly: No Tired, fatigued or sleepy in daytime: No Stops breathing or choking/gasping during sleep: No High blood pressure: Yes Sleep Apnea Probability Score: 58 (Recommend sleep study) documented in this encounter [facility] 03-28-2022 Instructions Tristen Brown APRN.CNP - 03/28/2022 1:12 PM EST Schedule with GI Continue to use Bentyl. DAVID Balbuena Dr. Friend Professor Of Management in [place], [place] Address: [address], [place] [address] Hours: Open ? Closes 4?PM documented in this encounter [facility] 03-28-2022 History of Present illness Narrative Chief Complaint Patient presents with: Follow Up For: UC visit 03/27/22-abdominal cramping/bloating x 2 weeks HPI Aaron Adler is a 66 year old male who presents here today for Above Complaints. follow up for abdominal cramping, bloating. Was in yesterday for this complaint. Had a normal CMP, CBC, UA, and Lipase. His amylase, in 01/14/2022 was normal. He was referred to gastroenterology yesterday. Has been ongoing for over 6 months. Did go to the ER in September 2021. They had recommended a CT but he declined due to a long wait. He is prescribed Bentyl, Zofran and Omeprazole. He states that he is doing okay now. He denies fevers at this time. Symptoms include bloating and indigestion. Mainly on the right side. Not constant. Waxes and wanes. Actually feels better after he eats. Nausea is present. No watery diarrhea. Just some loose stools, including this morning. No blood in his stools. Mentioning that he has a previous diagnosis of spasic colon. Did have EGD in 2017 that showed sessile polyps. Colonoscopy was normal. Past medical history, appointments, medications, allergies reviewed. EXAM: BP 132/84 (BP Site: Left Arm) Pulse 77 Temp 36.8 C (98.2 F) (Left Tympanic) Resp 16 Wt 102.1 kg (225 lb) SpO2 95% BMI 33.52 kg/m General Appearance: Well appearing, alert, in no acute distress, well-hydrated, well nourished.. Lungs: Lungs clear to auscultation. No wheezing, rhonchi, rales.. Heart: RRR without murmur, gallop, or rubs. No ectopy. Abdomen: Abdomen soft, mild tenderness in the mid-right abdominal wall. Bowel sounds normal. No masses, organomegaly. ASSESSMENT/PLAN: 1. Abdominal cramping - ICD9: 789.00, ICD10: R10.9 (primary diagnosis) - Unclear etiology. Not presenting as acute abdomen. CBC, Lipase, and CMP normal. IBS like or colonic spasms? Continue with bentyl use, just started within last 24 hours. He has a referral with gastroenterology previously placed. I did give him Dr. Jerez's contact number at [facility]. He will call to get scheduled. 2. Bloating - ICD9: 787.3, ICD10: R14.0 - Gastritis related. On PPI. Overdue for EGD. Tristen Brown APRN.MADI This note was partly generated using [employer] voice recognition dictation and may contain some misspelled or inaccurate words missed on review. documented in this encounter [facility] 03-27-2022 History of Present illness Narrative This note was created using [employer]im[employer]. Subjective Aaron Adler is a 66 year old male. HPI Patient presents with right sided abdominal bloating, cramping and nausea over the past 5 days. He had been seen for similar symptoms in September and January here. He had been referred to the ER in September. Had labs but had declined a CT in the er. He followed up with Dr. Marcano who increased his Prilosec and gave him Carafate. He denies any fever. Denies diarrhea but states his stools have been loose. No blood in stool. No recent travel. Denies cough or congestion. He had been diagnosed with colon spasms when he was a teenager. He thinks he did have a colonoscopy when he was 59. Does not recall any abnormalities. Denies family history of colon cancer. Did not eat out anywhere recently. Denies any abdominal surgeries. No history of obstructions. No urinary complaints. No history of kidney stones. No hematuria. Review of Systems Constitutional: Negative for fatigue and fever. HENT: Negative. Respiratory: Negative. Cardiovascular: Negative. Gastrointestinal: Positive for abdominal pain and nausea. Negative for anal bleeding, blood in stool, constipation and vomiting. 'loose stool' Genitourinary: Negative. Musculoskeletal: Negative. Skin: Negative. All other systems reviewed and are negative. PAST MEDICAL HISTORY Diagnosis Date Arrhythmia Arthralgia Diarrhea Epistaxis Headache(784.0) Hyperlipidemia Mental disorder Mouth sores Other, mixed, or unspecified nondependent drug abuse, unspecified hx heroin addiction PMH - PAST MEDICAL HISTORY OF arthritis S/P ablation operation for arrhythmia 1999 Unspecified constipation Current Outpatient Medications Medication Sig Dispense Refill omeprazole (PRILOSEC) 40 mg capsule Take 1 capsule by mouth once daily. 90 capsule 3 atorvastatin (LIPITOR) 20 mg tablet take 1 tablet by mouth once daily at bedtime for cholesterol 30 tablet 5 predniSONE (DELTASONE) 5 mg tablet Take 1-2 tablets by mouth once daily. 60 tablet 11 Terazosin HCl (HYTRIN) 10 mg capsule take 1 capsule by mouth once daily 90 capsule 3 Yurbyot-Zdeoeszyt-Dmtf tab Calcium 1200 mg once daily. Magnesium 500 mg once daily Zinc - 50 mg once daily. 0 Ascorbic Acid (VITAMIN C) 1,000 mg tablet Take 1 tablet by mouth once daily. 0 Cyanocobalamin (VITAMIN B-12) 1,000 mcg TbER Take 1 mcg by mouth once daily. 0 pyridoxine, vitamin B6, (VITAMIN B-6) 100 mg tablet Take 1 tablet by mouth once daily. 0 dicyclomine (BENTYL) 20 mg tablet Take 1 tablet by mouth four times daily as needed for up to 7 days. 20 tablet 0 ondansetron orally disintegrating (ZOFRAN ODT) 4 mg disintegrating tablet Take 1 tablet by mouth every 8 hours as needed. 12 tablet 0 No current facility-administered medications for this visit. PAST SURGICAL HISTORY Procedure Laterality Date CARDIAC SURG PROCEDURE UNLIST 1999 cathetarization for tachycardia COLONOSCOPY FLX DX W/COLLJ SPEC WHEN PFRMD 08/20/2006 Colonoscopy NEUROPLASTY &/TRANSPOS MEDIAN NRV CARPAL TUNNE 08/07/2005 Carpal tunnel decomp Left PAST SURGICAL HISTORY OF Right 1985 foot surgery/ bone removal d/t infection FAMILY HISTORY Problem Relation Age of Onset Diabetes Mother non insulin dependent Blood Disease Mother 84 multiple myeloma None Father Social History Tobacco Use Smoking status: Former Smokeless tobacco: Never Tobacco comments: quit 15 years ago Substance Use Topics Alcohol use: No Comment: quit 3 years ago Drug use: Yes Comment: former heroin addict Objective BP 138/88 Pulse 94 Temp 36.6 C (97.8 F) (Tympanic) Resp 18 Wt 102.7 kg (226 lb 6.4 oz) SpO2 96% BMI 33.73 kg/m Physical Exam Vitals reviewed. Constitutional: Appearance: Normal appearance. HENT: Head: Normocephalic and atraumatic. Mouth/Throat: Mouth: Mucous membranes are moist. Pharynx: Oropharynx is clear. Cardiovascular: Rate and Rhythm: Normal rate and regular rhythm. Heart sounds: Normal heart sounds. Pulmonary: Effort: Pulmonary effort is normal. Breath sounds: Normal breath sounds. Abdominal: General: Abdomen is flat. Palpations: Abdomen is soft. Comments: Patient has mild tenderness in the right flank area. No right lower quadrant tenderness on palpation. No right upper quadrant tenderness to palpation. Negative Kwok sign. Negative McBurney's point tenderness. No guarding or rebound. Bowel sounds are slightly hyperactive. No tenderness on the left side abdomen or epigastric region. Musculoskeletal: Cervical back: Neck supple. Skin: General: Skin is warm and dry. Neurological: Mental Status: He is alert. Assessment and Plan ASSESSMENT/PLAN: 1. Abdominal cramping - ICD9: 789.00, ICD10: R10.9 (primary diagnosis) -Patient has had this twice since September with similar presentations. He didn't have imaging done when he was referred to the ER the first time. His abdomen today is nonacute. Discussed with him however if he develops worsening pain, fever, vomiting needs to be seen in the ER. I did order basic labs and urine. UA here normal. Labs pending. We will have him have close follow-up tomorrow with PCP. PCP had considered CT in September, he had not followed up for that. May also benefit from GI referral. Katie and claus sent. - CBC + DIFF - COMP METABOLIC PANEL - LIPASE BLD - UA DIP, URINE (POC) - CONSULT TO GASTROENTEROLOGY 2. Bloating - ICD9: 787.3, ICD10: R14.0 Colleen Lema PA-C documented in this encounter [facility] 02-24-2022 Miscellaneous Notes OK to refill as ordered Adelita Marcano MD Spoke w/Bill, Terazosin was written 12/10/2021, x90 capsules, 3 refills. Patient will check w/[facility]/Yasmeen. Patient has been identified by name and date of : Yes Patient phones for refill(s): Requested Prescriptions Pending Prescriptions Disp Refills omeprazole (PRILOSEC) 40 mg capsule 90 capsule 1 Sig: Take 1 capsule by mouth once daily. Date of last office visit in primary care: 01/15/2022 No future appt scheduled. Last 2 Encounter Wt Readings: Date: Wt: 01/15/2022 100.7 kg (222 lb) 01/14/2022 102.1 kg (225 lb) Previous labs/tests for medication: Not applicable Please advise. Thank you. Cristina Quick LPN Patient has been identified by name and date of : Yes Requested Prescriptions Pending Prescriptions Disp Refills Terazosin HCl (HYTRIN) 10 mg capsule 90 capsule 3 Sig: Take 1 capsule by mouth once daily. RX INSTRUCTIONS: Patient aware RX will be sent to pharmacy. No need to notify patient. Kelsey Melgar Pss documented in this encounter [facility] 02-14-2022 Miscellaneous Notes The following approved medication requests have been transmitted electronically. Requested Prescriptions Pending Prescriptions Disp Refills atorvastatin (LIPITOR) 20 mg tablet [Pharmacy Med Name: ATORVASTATIN 20 MG TABLET] 30 tablet 5 Sig: take 1 tablet by mouth once daily at bedtime for cholesterol Tristen Brown APRN.MADI Last office visit: 01/15/22 F/u scheduled: none Susan Robertson Ma documented in this encounter [facility] 01-15-2022 Instructions Laurie Esteves APRN.CNP - 01/15/2022 3:13 PM EST Recommend eating a bland diet. Stay well hydrated. Good hand hygiene If symptoms do not improve may consider stool testing if needed. Follow up pending test results. documented in this encounter [facility] 01-15-2022 History of Present illness Narrative This is a 66 year old male who presents today with: Patient presents with: Acute Visit: Stomach and nausea HISTORY OF PRESENT ILLNESS: Aaron Adler is a 66 year old male. Patient presents with: Acute Visit: Stomach and nausea Here in the office for express care follow up. Was seen yesterday for Nausea/Abdominal pain. Labs and Covid/Flu testing completed. Covid/Flu Negative. CBC, amylase WNL, CMP showed elevated glucose at 106. Labs relatively normal. Having loose stools, nausea, and abdominal pain (center) that started last Thursday. Takes metamucil daily. Stools have been more watery than normal. 2-3 BM's daily. No mucus or blood noted. Pain is an ache and burning sensation that comes and goes. Nausea at times when he hasn't eaten. Has not been eating very much, 1 meal per day. Staying hydrated. No urinary symptoms. PAST MEDICAL HISTORY: PAST MEDICAL HISTORY Diagnosis Date Arrhythmia Arthralgia Diarrhea Epistaxis Headache(784.0) Hyperlipidemia Mental disorder Mouth sores Other, mixed, or unspecified nondependent drug abuse, unspecified hx heroin addiction PMH - PAST MEDICAL HISTORY OF arthritis S/P ablation operation for arrhythmia 1999 Unspecified constipation PAST SURGICAL HISTORY Procedure Laterality Date CARDIAC SURG PROCEDURE UNLIST 1999 cathetarization for tachycardia COLONOSCOPY FLX DX W/COLLJ SPEC WHEN PFRMD 08/20/2006 Colonoscopy NEUROPLASTY &/TRANSPOS MEDIAN NRV CARPAL TUNNE 08/07/2005 Carpal tunnel decomp Left PAST SURGICAL HISTORY OF Right 1985 foot surgery/ bone removal d/t infection ALLERGIES Meloxicam and Bactrim [Sulfamethoxazole] MEDICATIONS Current Outpatient Medications Medication Sig Terazosin HCl (HYTRIN) 10 mg capsule take 1 capsule by mouth once daily omeprazole (PRILOSEC) 40 mg capsule Take 1 capsule by mouth once daily. sucralfate (CARAFATE) 1 gram tablet Take 1 tablet by mouth before meals and at bedtime. (Patient not taking: Reported on 01/14/2022) atorvastatin (LIPITOR) 20 mg tablet Take 1 tablet by mouth daily at bedtime. For cholesterol. predniSONE (DELTASONE) 5 mg tablet Take 1-2 tablets by mouth once daily. Ggbdcxh-Haiocjsyn-Ngkg tab Calcium 1200 mg once daily. Magnesium 500 mg once daily Zinc - 50 mg once daily. Ascorbic Acid (VITAMIN C) 1,000 mg tablet Take 1 tablet by mouth once daily. Cholecalciferol, Vitamin D3, 1,000 unit cap Take 1 capsule by mouth once daily. Cyanocobalamin (VITAMIN B-12) 1,000 mcg TbER Take 1 mcg by mouth once daily. pyridoxine, vitamin B6, (VITAMIN B-6) 100 mg tablet Take 1 tablet by mouth once daily. ASPIRIN/CAFFEINE (ANACIN ORAL) Take by mouth as needed. No current facility-administered medications for this visit. FAMILY HISTORY Problem Relation Age of Onset Diabetes Mother non insulin dependent Blood Disease Mother 84 multiple myeloma None Father Social History Tobacco Use Smoking status: Former Smokeless tobacco: Never Tobacco comments: quit 15 years ago Substance Use Topics Alcohol use: No Comment: quit 3 years ago Drug use: Yes Comment: former heroin addict REVIEW OF SYSTEMS GENERAL: No weight loss, malaise or fevers/chills HEENT: Negative for frequent or significant headaches, No changes in hearing or vision. NECK: Negative for lumps, goiter, pain and significant neck swelling RESPIRATORY: Negative for cough, hemoptysis, wheezing, dyspnea or shortness of breath CARDIOVASCULAR: Negative for chest pain, leg swelling, orthopnea, or palpitations GI: + General abdominal discomfort, loose stools, mild nausea : No history of dysuria, frequency or incontinence MUSCULOSKELETAL: Negative for joint pain or swelling. SKIN: Negative for lesions, rash, and itching ENDOCRINE: Negative for cold or heat intolerance, polyuria, polydipsia and goiter NEURO: No history of headaches, syncope, paralysis, seizures or tremors MOOD: Negative for depression, anxiety, or suicidal ideation. EXAM: BP 120/84 Pulse 74 Temp 37.4 C (99.3 F) (Left Tympanic) Resp 16 Wt 100.7 kg (222 lb) SpO2 96% BMI 33.07 kg/m PHYSICAL EXAM: General Appearance: Well appearing, alert, in no acute distress, well-hydrated, well nourished. Skin: Skin color, texture, turgor normal, no suspicious rashes or lesions. Head: Normocephalic, no masses, lesions, tenderness or abnormalities. Eyes: Anicteric sclera. Extraocular movements are intact. Lungs: Lungs clear to auscultation. No wheezing, rhonchi, rales. Heart: RRR without murmur, gallop, or rubs. No ectopy. Abdomen: Abdomen soft, non-tender. Bowel sounds hyperactive. No masses, organomegaly, Negative CVA tenderness. Extremities: No deformities, edema, skin discoloration, clubbing or cyanosis. Good capillary refill. Peripheral Pulses: Normal, Capillary refill <2secs, strong peripheral pulses, Pulses palpable. Neurologic: Gait normal. Reflexes normal and symmetric. Sensation grossly intact. ASSESSMENT/PLAN: 1. Gastroenteritis - ICD9: 558.9, ICD10: K52.9 - Based off of history and exam symptoms consistent with gastroenteritis. - Instructed to eat a bland diet and advance as tolerated, stay well-hydrated. - If symptoms do not improve discussed possibility of completing stool testing if needed. Follow-up as needed or sooner if symptoms get worse or do not improve. Discussed treatment plan and patient voices understanding. Patient's questions answered appropriately. Medications and potential side effects were discussed and patient voices understanding. Laurie Esteves APRN.MADI This note was partially generated using [employer] voice recognition system. Note was reviewed for accuracy. There may be minor misspellings or grammar miscues with [employer] voice recognition. documented in this encounter [facility] 01-13-2022 Miscellaneous Notes Pt called and notified of message below, verbalized understanding. Will go to Express Care as soon as he gets up and around. Made aware that if Covid testing is + he will have to do a VV in order to get Paxlovid, if wanting. Glendy Escalera Ma I would recommend EC visit to be tested for Flu and Covid to see if he has influenza prior to prescribing any medication Adelita Marcano MD Spoke with Triage. We do have 4:20 VV spot available, okay with this? Glendy Escalera Ma Protocol recommends call provider now, they may want to order an antiviral. Care plan reviewed with patient. Patient voices understanding. Advised patient that if symptoms get worse to be evaluated in Urgent Care or ER. Reason for Disposition Patient is HIGH RISK (e.g., age > 64 years, , HIV+, or chronic medical condition) Answer Assessment - Initial Assessment Questions 1. WORST SYMPTOM: Worst symptom fatigue/weakness. 2. ONSET: Flu symptoms started last night 3. COUGH: Denies 4. RESPIRATORY DISTRESS: Breathing normal. 5. FEVER: Denies. 6. EXPOSURE: Not that he knows of. 7. FLU VACCINE: Pt reports he got the flu shot this year in October. 8. HIGH RISK DISEASE: Pt denies heart or lung disease, asthma, weak immune system, or other HIGH RISK conditions. 9. : N/A 10. OTHER SYMPTOMS: Pt reports stuffy nose, diarrhea, dizziness, decreased appetite, and nausea. Pt denies muscle aches, headache, or sore throat. Protocols used: Influenza - [id number] documented in this encounter [facility] 12-10-2021 Miscellaneous Notes The following approved medication requests have been transmitted electronically. Requested Prescriptions Pending Prescriptions Disp Refills Terazosin HCl (HYTRIN) 10 mg capsule [Pharmacy Med Name: TERAZOSIN 10 MG CAPSULE] 90 capsule 3 Sig: take 1 capsule by mouth once daily Tristen Brown APRN.MADI Last office visit: 10/07/21 F/u scheduled: none Susan Robertson Ma documented in this encounter [facility] 11-08-2021 Miscellaneous Notes OK to refill as ordered Adelita Marcano MD Aaron Adler is calling Adelita Marcano MD today to request the following medication, not on the current list: valACYclovir (VALTREX) 500 mg tablet 6 tablet 5 02/29/2020 03/03/2020 Sig: Take 1 tablet by mouth twice daily for 3 days. Sent to pharmacy as: valACYclovir (VALTREX) 500 mg tablet Class: Normal Route: ORAL Order: [id number] E-Prescribing Status: Receipt confirmed by pharmacy (02/29/2020 2:57 PM EST) Patient is out of medication - please send today to [facility]. Please notify patient on MyChart. Patient has been identified by name and birthdate. Duration of symptoms: N/A Person calling: self Call patient at: on cell [phone] (home) [phone] (cell) Was an appointment scheduled: No Closing statement: Patient is active on MyChart and would like the response sent to their account. Diane Sánchez Pss documented in this encounter [facility] 10-02-2021 Miscellaneous Notes Pt has been scheduled for an ER FU apt on 10-07-[address] Marcano. Results will be discussed at that time. Delores Melgar LPN Pt calling and states was to ER and calling for results of testing done. ER report and testing copied and given to provider's office. Delores Melgar LPN documented in this encounter [facility] 05-30-2021 Instructions Laurie Esteves APRN.BLANKER OPERATOR - 05/30/2021 2:20 PM EDT 1.) Ear wax was removed today. 2.) Try not to put anything into the ear. 3.) if ringing into the ears persists recommend following up with ENT for further evaluation. 4.) May continue to use the Debrox ear drop once per month to prevent build up. 5.) Follow up as needed. Schedule appointment with Neurology to discuss memory concerns (Dr. El or his LABEL SEWER). documented in this encounter [facility] 05-30-2021 History of Present illness Narrative This is a 65 year old male who presents today with: Patient presents with: Acute Visit: wax in ears and ringing HISTORY OF PRESENT ILLNESS: Aaron Adler is a 65 year old male. Patient presents with: Acute Visit: wax in ears and ringing Here in the office for tinnitus bilaterally that started about 2 weeks. Has a history of cerumen impaction. Hearing slightly muffled certain sounds. No difficulty with balance. Short Term Memory: Is concerned that short term memory has gotten worse. Will find cupboard doors opened or will walk into a room and not remember why is in the room. Is progressively getting worse. PAST MEDICAL HISTORY: PAST MEDICAL HISTORY Diagnosis Date Arrhythmia Arthralgia Diarrhea Epistaxis Headache(784.0) Hyperlipidemia Mental disorder Mouth sores Other, mixed, or unspecified nondependent drug abuse, unspecified hx heroin addiction PMH - PAST MEDICAL HISTORY OF arthritis S/P ablation operation for arrhythmia 1999 Unspecified constipation PAST SURGICAL HISTORY Procedure Laterality Date CARDIAC SURG PROCEDURE UNLIST 1999 cathetarization for tachycardia COLONOSCOPY FLX DX W/COLLJ SPEC WHEN PFRMD 08/20/2006 Colonoscopy NEUROPLASTY &/TRANSPOS MEDIAN NRV CARPAL TUNNE 08/07/2005 Carpal tunnel decomp Left PAST SURGICAL HISTORY OF Right 1985 foot surgery/ bone removal d/t infection ALLERGIES Meloxicam and Bactrim [Sulfamethoxazole] MEDICATIONS Current Outpatient Medications Medication Sig omeprazole (PRILOSEC) 20 mg capsule take 1 capsule by mouth once daily 1/2 AN HOUR BEFORE MEAL Terazosin HCl (HYTRIN) 10 mg capsule Take 1 capsule by mouth once daily. diclofenac (VOLTAREN ARTHRITIS PAIN) 1 % topical gel Apply 4 g to affected area four times daily. fluticasone (FLONASE) 50 mcg/actuation nasal spray Use 2 Sprays in each nostril twice daily. Rinse mouth after use. atorvastatin (LIPITOR) 20 mg tablet Take 1 tablet by mouth daily at bedtime. For cholesterol. predniSONE (DELTASONE) 5 mg tablet Take 1-2 tablets by mouth once daily. Vdklpub-Ijyiawyfc-Uffp tab Calcium 1200 mg once daily. Magnesium 500 mg once daily Zinc - 50 mg once daily. Ascorbic Acid (VITAMIN C) 1,000 mg tablet Take 1 tablet by mouth once daily. Cholecalciferol, Vitamin D3, 1,000 unit cap Take 1 capsule by mouth once daily. Cyanocobalamin (VITAMIN B-12) 1,000 mcg TbER Take 1 mcg by mouth once daily. pyridoxine, vitamin B6, (VITAMIN B-6) 100 mg tablet Take 1 tablet by mouth once daily. ASPIRIN/CAFFEINE (ANACIN ORAL) Take by mouth as needed. No current facility-administered medications for this visit. FAMILY HISTORY Problem Relation Age of Onset Diabetes Mother non insulin dependent Blood Disease Mother 84 multiple myeloma None Father Social History Tobacco Use Smoking status: Former Smoker Smokeless tobacco: Never Used Tobacco comment: quit 15 years ago Substance Use Topics Alcohol use: No Comment: quit 3 years ago Drug use: Yes Comment: former heroin addict REVIEW OF SYSTEMS GENERAL: No weight loss, malaise or fevers/chills HEENT: + Tinnitus/muffled hearing. NECK: Negative for lumps, goiter, pain and significant neck swelling RESPIRATORY: Negative for cough, hemoptysis, wheezing, dyspnea or shortness of breath CARDIOVASCULAR: Negative for chest pain, leg swelling, orthopnea, or palpitations GI: No nausea, vomiting, or diarrhea/constipation. No hematochezia/melena. No heartburn or reflux symptoms. : No history of dysuria, frequency or incontinence MUSCULOSKELETAL: Negative for joint pain or swelling. SKIN: Negative for lesions, rash, and itching ENDOCRINE: Negative for cold or heat intolerance, polyuria, polydipsia and goiter NEURO: Memory concerns MOOD: Negative for depression, anxiety, or suicidal ideation. EXAM: BP 150/88 Pulse 79 Resp 16 Wt 98.9 kg (218 lb) SpO2 96% BMI 32.47 kg/m PHYSICAL EXAM: General Appearance: Well appearing, alert, in no acute distress, well-hydrated, well nourished. Skin: Skin color, texture, turgor normal, no suspicious rashes or lesions. Head: Normocephalic, no masses, lesions, tenderness or abnormalities. Eyes: Anicteric sclera. Extraocular movements are intact. Ears: External ears normal, canals clear. Unable to visualize left TM due to cerumen impaction. Lungs: Lungs clear to auscultation. No wheezing, rhonchi, rales. Heart: RRR without murmur, gallop, or rubs. No ectopy. Extremities: No deformities, edema, skin discoloration, clubbing or cyanosis. Good capillary refill. Peripheral Pulses: Normal, Capillary refill <2secs, strong peripheral pulses, Pulses palpable. Neuro: A&Ox3, gait normal, sensation intact. Ear lavage performed on the left ear by nurse Ayesha Kessler LPN, large amount of cerumen removed easily without any difficulty. Patient tolerated procedure well. ASSESSMENT/PLAN: 1. Impacted cerumen of left ear - ICD9: 380.4, ICD10: H61.22 (primary diagnosis) - Large amount of cerumen removed with ear lavage without difficulty. - May use Debrox eardrops prophylactically once per month to prevent buildup. 2. Tinnitus, bilateral - ICD9: 388.30, ICD10: H93.13 - Instructed the patient to follow-up with ENT if tinnitus does not improve after ear lavage today. - CONSULT TO ENT 3. Forgetfulness - ICD9: 780.99, ICD10: R68.89 - Due to worsening forgetfulness consult placed for neurology to discuss these concerns. - CONSULT TO NEUROLOGY Follow-up as needed or sooner if symptoms get worse or do not improve. Discussed treatment plan and patient voices understanding. Patient's questions answered appropriately. Medications and potential side effects were discussed and patient voices understanding. Laurie Esteves APRN.CNP This note was partially generated using [employer] voice recognition system. Note was reviewed for accuracy. There may be minor misspellings or grammar miscues with [employer] voice recognition. documented in this encounter [facility] 04-29-2021 Miscellaneous Notes The following approved medication requests have been transmitted electronically. Pending Prescriptions Disp Refills OMEPRAZOLE 20 MG CAPSULE,DELAYED RELEASE 360 capsule 3 Sig: take 1 capsule by mouth once daily 1/2 AN HOUR BEFORE MEAL MICHEAL: Yes Tristen Brown APRN.CNP Last office visit: 03/07/21 F/u scheduled: none Susan Robertson Ma documented in this encounter [facility] 01-18-2020 History of Present illness Narrative Radiology Service Progress Note PATIENT NAME: Aaron Adler DATE OF SERVICE: January 18, 2020 TIME: 1:24 PM PATIENT IDENTITY VERIFICATION COMPLETED USING TWO (2) IDENTIFIERS: Name and Date of confirmed by patient verbally. FALL SCREENING: Has the patient had 2 falls in the last year or 1 fall with injury or currently using an Ambulatory Assistive Device (Walker, Cane, Wheelchair, Crutches, etc.)? No PATIENT GENDER DATA: Male PATIENT RELEVANT IMPLANT DATA REVIEWED: Not Applicable RADIOLOGY DEPARTMENT: General X-ray: Exam(s) Completed: Lower Extremity X-Ray(s): Knee, AP / Lat / Tunne / Merchant Right and Wt. Bearing: PERIPHERAL IV DATA: Not applicable SIGNED BY: RT Jaye January 18, 2020 1:24 PM documented in this encounter [facility] Evaluation note Diagnosis Gastroesophageal reflux disease without esophagitis Esophageal [facility] Impacted cerumen of left ear- Primary Impacted cerumen Tinnitus, bilateral Unspecified tinnitus Forgetfulness Other general symptoms [facility] noteNo assessment information [facility]* Diagnosis Herpes simplex infection of penis [facility] Diagnosis BPH with urinary obstruction Hypertrophy of prostate with urinary obstruction and other lower urinary tract symptoms (LUTS) [facility] Diagnosis Gastroenteritis- Primary Other and unspecified noninfectious gastroenteritis and colitis [facility] Diagnosis Hyperlipidemia, mixed Mixed hyperlipidemia [facility] Diagnosis BPH with urinary obstruction Hypertrophy of prostate with urinary obstruction and other lower urinary tract symptoms (LUTS) Right sided abdominal pain Abdominal pain, unspecified site [facility] Diagnosis Abdominal cramping- Primary Abdominal pain, unspecified site Bloating Flatulence, eructation, and gas pain [facility] Diagnosis Abdominal cramping- Primary Abdominal pain, unspecified site Bloating Flatulence, eructation, and gas pain [facility] Diagnosis MCI (mild cognitive impairment)- Primary Mild cognitive impairment, so stated Memory loss [facility] Diagnosis Right sided abdominal pain Abdominal pain, unspecified site [facility] Diagnosis Skin lesion- Primary Unspecified disorder of skin and subcutaneous tissue [facility] Diagnosis Hyperlipidemia, mixed Mixed hyperlipidemia [facility] Diagnosis Fatigue, unspecified type- Primary [facility] Diagnosis Shakiness- Primary Abnormal involuntary movements 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) Elevated glucose Other abnormal glucose [facility] Diagnosis Shakiness- Primary Abnormal involuntary movements Diaphoresis Generalized hyperhidrosis documented [facility]* Diagnosis Cognitive impairment, mild, so stated- Primary Mild cognitive impairment, so stated Hyperlipidemia, mixed Mixed hyperlipidemia Right sided abdominal pain Abdominal pain, unspecified site 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 Hypertrophy of prostate with urinary obstruction and other lower urinary tract symptoms (LUTS) Screening for abdominal aortic aneurysm 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 Encounter for long-term (current) use of steroids Memory loss Screening for prostate cancer Special screening for malignant neoplasm of prostate Elevated glucose Other abnormal glucose Hepatitis C carrier (HCC) Hepatitis C carrier Hypertriglyceridemia- Primary Pure hyperglyceridemia Encounter for immunization Need for other specified prophylactic vaccination against single bacterial disease 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 Hypertrophy of prostate with urinary obstruction and other lower urinary tract symptoms (LUTS) Cognitive impairment, mild, so stated Mild cognitive impairment, so stated GERD without esophagitis Esophageal reflux documented in [facility]* Diagnosis Chronic pain of right knee Cognitive impairment, mild, so stated- Primary Mild cognitive impairment, so stated Hyperlipidemia, mixed Mixed hyperlipidemia Right sided abdominal pain Abdominal pain, unspecified site 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 Hypertrophy of prostate with urinary obstruction and other lower urinary tract symptoms (LUTS) Screening for abdominal aortic aneurysm Screening for other and unspecified cardiovascular conditions prison current use of systemic steroids Encounter for long-term (current) use of steroids Memory loss Screening for prostate cancer Special screening for malignant neoplasm of prostate Elevated glucose Other abnormal glucose Hepatitis C carrier (HCC) Hepatitis C carrier documented in [facility] note* Diagnosis Cognitive impairment, mild, so stated- Primary Mild cognitive impairment, so stated Hyperlipidemia, mixed Mixed hyperlipidemia Right sided abdominal pain Abdominal pain, unspecified site 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 Hypertrophy of prostate with urinary obstruction and other lower urinary tract symptoms (LUTS) Screening for abdominal aortic aneurysm 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 Encounter for long-term (current) use of steroids Memory loss Screening for prostate cancer Special screening for malignant neoplasm of prostate Elevated glucose Other abnormal glucose Hepatitis C carrier (HCC) Hepatitis C carrier Herpes simplex infection of penis [facility] Diagnosis Cognitive impairment, mild, so stated- Primary Mild cognitive impairment, so stated Hyperlipidemia, mixed Mixed hyperlipidemia Right sided abdominal pain Abdominal pain, unspecified site 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 Hypertrophy of prostate with urinary obstruction and other lower urinary tract symptoms (LUTS) Screening for abdominal aortic aneurysm Screening for other and unspecified cardiovascular conditions prison current use of systemic steroids Encounter for long-term (current) use of steroids Memory loss Screening for prostate cancer Special screening for malignant neoplasm of prostate Elevated glucose Other abnormal glucose Hepatitis C carrier (HCC) Hepatitis C carrier Herpes simplex infection of penis [facility] Diagnosis Cognitive impairment, mild, so stated- Primary Mild cognitive impairment, so stated Hyperlipidemia, mixed Mixed hyperlipidemia Right sided abdominal pain Abdominal pain, unspecified site 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 Hypertrophy of prostate with urinary obstruction and other lower urinary tract symptoms (LUTS) Screening for abdominal aortic aneurysm Screening for other and unspecified cardiovascular conditions prison current use of systemic steroids Encounter for long-term (current) use of steroids Memory loss Screening for prostate cancer Special screening for malignant neoplasm of prostate Elevated glucose Other abnormal glucose Hepatitis C carrier (HCC) Hepatitis C carrier Hyperlipidemia, mixed Mixed hyperlipidemia [facility] Diagnosis Cognitive impairment, mild, so stated- Primary Mild cognitive impairment, so stated Hyperlipidemia, mixed Mixed hyperlipidemia Right sided abdominal pain Abdominal pain, unspecified site 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 Hypertrophy of prostate with urinary obstruction and other lower urinary tract symptoms (LUTS) Screening for abdominal aortic aneurysm 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 Encounter for long-term (current) use of steroids Memory loss Screening for prostate cancer Special screening for malignant neoplasm of prostate Elevated glucose Other abnormal glucose Hepatitis C carrier (HCC) Hepatitis C carrier Right sided abdominal pain Abdominal pain, unspecified site 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 Hypertrophy of prostate with urinary obstruction and other lower urinary tract symptoms (LUTS) [facility] Diagnosis Cognitive impairment, mild, so stated- Primary Mild cognitive impairment, so stated Hyperlipidemia, mixed Mixed hyperlipidemia Right sided abdominal pain Abdominal pain, unspecified site 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 Hypertrophy of prostate with urinary obstruction and other lower urinary tract symptoms (LUTS) Screening for abdominal aortic aneurysm Screening for other and unspecified cardiovascular conditions prison current use of systemic steroids Encounter for long-term (current) use of steroids Memory loss Screening for prostate cancer Special screening for malignant neoplasm of prostate Elevated glucose Other abnormal glucose Hepatitis C carrier (HCC) Hepatitis C carrier Herpes simplex infection of penis [facility] Diagnosis Cognitive impairment, mild, so stated- Primary Mild cognitive impairment, so stated Hyperlipidemia, mixed Mixed hyperlipidemia Right sided abdominal pain Abdominal pain, unspecified site 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 Hypertrophy of prostate with urinary obstruction and other lower urinary tract symptoms (LUTS) Screening for abdominal aortic aneurysm Screening for other and unspecified cardiovascular conditions prison current use of systemic steroids Encounter for long-term (current) use of steroids Memory loss Screening for prostate cancer Special screening for malignant neoplasm of prostate Elevated glucose Other abnormal glucose Hepatitis C carrier (HCC) Hepatitis C carrier Right sided abdominal pain Abdominal pain, unspecified site BPH with urinary obstruction Hypertrophy of prostate with urinary obstruction and other lower urinary tract symptoms (LUTS) Hyperlipidemia, mixed Mixed hyperlipidemia [facility] Diagnosis Cognitive impairment, mild, so stated- Primary Mild cognitive impairment, so stated Hyperlipidemia, mixed Mixed hyperlipidemia Right sided abdominal pain Abdominal pain, unspecified site 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 Hypertrophy of prostate with urinary obstruction and other lower urinary tract symptoms (LUTS) Screening for abdominal aortic aneurysm Screening for other and unspecified cardiovascular conditions prison current use of systemic steroids Encounter for long-term (current) use of steroids Memory loss Screening for prostate cancer Special screening for malignant neoplasm of prostate Elevated glucose Other abnormal glucose Hepatitis C carrier (HCC) Hepatitis C carrier Hyperlipidemia, mixed- Primary Mixed hyperlipidemia Elevated glucose Other abnormal glucose BPH with urinary obstruction Hypertrophy of prostate with urinary obstruction and other lower urinary tract symptoms (LUTS) Memory changes Memory loss 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) Encounter for immunization Need for other specified prophylactic vaccination against single bacterial disease Screening for depression Encounter for screening examination for other mental health and behavioral disorders Elevated PSA Elevated prostate specific antigen (PSA) Skin lesion Unspecified disorder of skin and subcutaneous tissue documented in this encounter [facility] Advance Directives No Advanced Directives Records FoundDocuments on File Type Date Recorded Patient Real Estate Director Expl anation Advance Directive(s) 08/26/2016 7:32 AM Documents on File Type Date Recorded Patient Real Estate Director Expl anation Advance Directive(s) 08/26/2016 7:32 AM Advance Directive Response Recorded Date/ Time Advance Directives No February 11, 2017 10:40pm Living Will No September 27 2 7:39pm Power of Rad Technologist No September 27 022 7:39pm Advance Directive Response Recorded Date/ Time Advance Directives No February 11, 2017 9:40pm Living Will No September 27 2 6:39pm Power of Rad Technologist No September 27 022 6:39pm Reason for Referral Specialty Diagnoses / Procedures Referred By Contac t Referred To Contact Neurology Diagnoses Forgetfulness Procedures CONSULT TO NEUROLOGY OFFICE/OUTPATIENT [facility] 60-74 MINUTES Laurie Esteves APRN.BLANKER OPERATOR [address] [place] [address] Referral ID Status Reason Start Date Expiration Date Visits Requested Visits Authorized [id number] Authorized PCP Requested Referral 05/30/2021 05/30/2022 1 1 Specialty Diagnoses / Procedures Referred By Contac t Referred To Contact Ent - Otolaryngology Diagnoses Tinnitus, bilateral Procedures CONSULT TO ENT OFFICE/OUTPATIENT [facility] 60-74 MINUTES Laurie Esteves APRN.BLANKER OPERATOR [address] [place] [address] Referral ID Status Reason Start Date Expiration Date Visits Requested Visits Authorized [id number] Authorized PCP Requested Referral 05/30/2021 05/30/2022 1 1 Specialty Diagnoses / Procedures Referred By Contac t Referred To Contact Gastroenterology Diagnoses Abdominal cramping Procedures CONSULT TO GASTROENTEROLOGY OFFICE/OUTPATIENT [facility] 60-74 MINUTES Colleen Lema PA-C [address] [place] [address] Referral ID Status Reason Start Date Expiration Date Visits Requested Visits Authorized [id number] Authorized PCP Requested Referral 03/27/2022 03/27/2023 1 1 Specialty Diagnoses / Procedures Referred By Contac t Referred To Contact Dermatology Diagnoses Skin lesion Procedures CONSULT TO DERMATOLOGY Laurie Esteves APRN.BLANKER OPERATOR [address] [place] [address] Referral ID Status Reason Start Date Expiration Date Visits Requested Visits Authorized [id number] Ref Not Required PCP Requested Referral 04/23/2023 04/22/2024 1 1 Specialty Diagnoses / Procedures Referred By Lilian cristobal Referred To Contact Rheumatology Diagnoses 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) Procedures CONSULT TO RHEUM/IMMUN DISEASE OFFICE/OUTPATIENT [facility] 60 MINUTES Laurie Esteves APRN.BLANKER OPERATOR [address] [place] [address] Referral ID Status Reason Start Date Expiration Date Visits Requested Visits Authorized [id number] Authorized PCP Requested Referral 08/20/2023 08/19/2024 1 1 Chief Complaint and Reason for Visit Chief Complaint GENERAL ILLNESS Summary Purpose Family History No Family History Records FoundNo Family History Records Found Additional Source Comments Source Comments (unrecognize d section and content) In the event this informatio n is protected by the Federal Confidentiality of Alcohol and Drug Abuse Patient Records regulations: The Federal rules restrict any use of the information to criminally investigate or prosecute any alcohol or drug abuse patient.[facility] the event this information is protected by the Federal Confidentiality of Alcohol and Drug Abuse Patient Records regulations: The Federal rules restrict any use of the information to criminally investigate or prosecute any alcohol or drug abuse patient.[facility] HospitalIn the event this information is protected by the Federal Confidentiality of Alcohol and Drug Abuse Patient Records regulations: The Federal rules restrict any use of the information to criminally investigate or prosecute any alcohol or drug abuse patient.[facility]In the event this information is protected by the Federal Confidentiality of Alcohol and Drug Abuse Patient Records regulations: The Federal rules restrict any use of the information to criminally investigate or prosecute any alcohol or drug abuse patient.[facility] HospitalIn the event this information is protected by the Federal Confidentiality of Alcohol and Drug Abuse Patient Records regulations: The Federal rules restrict any use of the information to criminally investigate or prosecute any alcohol or drug abuse patient.[facility] HospitalIn the event this information is protected by the Federal Confidentiality of Alcohol and Drug Abuse Patient Records regulations: The Federal rules restrict any use of the information to criminally investigate or prosecute any alcohol or drug abuse patient.[facility]In the event this information is protected by the Federal Confidentiality of Alcohol and Drug Abuse Patient Records regulations: The Federal rules restrict any use of the information to criminally investigate or prosecute any alcohol or drug abuse patient.[facility] HospitalIn the event this information is protected by the Federal Confidentiality of Alcohol and Drug Abuse Patient Records regulations: The Federal rules restrict any use of the information to criminally investigate or prosecute any alcohol or drug abuse patient.[facility] HospitalIn the event this information is protected by the Federal Confidentiality of Alcohol and Drug Abuse Patient Records regulations: The Federal rules restrict any use of the information to criminally investigate or prosecute any alcohol or drug abuse patient.[facility] HospitalIn the event this information is protected by the Federal Confidentiality of Alcohol and Drug Abuse Patient Records regulations: The Federal rules restrict any use of the information to criminally investigate or prosecute any alcohol or drug abuse patient.[facility] HospitalIn the event this information is protected by the Federal Confidentiality of Alcohol and Drug Abuse Patient Records regulations: The Federal rules restrict any use of the information to criminally investigate or prosecute any alcohol or drug abuse patient.[facility] HospitalIn the event this information is protected by the Federal Confidentiality of Alcohol and Drug Abuse Patient Records regulations: The Federal rules restrict any use of the information to criminally investigate or prosecute any alcohol or drug abuse patient.[facility] HospitalIn the event this information is protected by the Federal Confidentiality of Alcohol and Drug Abuse Patient Records regulations: The Federal rules restrict any use of the information to criminally investigate or prosecute any alcohol or drug abuse patient.[facility] HospitalIn the event this information is protected by the Federal Confidentiality of Alcohol and Drug Abuse Patient Records regulations: The Federal rules restrict any use of the information to criminally investigate or prosecute any alcohol or drug abuse patient.[facility] HospitalIn the event this information is protected by the Federal Confidentiality of Alcohol and Drug Abuse Patient Records regulations: The Federal rules restrict any use of the information to criminally investigate or prosecute any alcohol or drug abuse patient.[facility] HospitalIn the event this information is protected by the Federal Confidentiality of Alcohol and Drug Abuse Patient Records regulations: The Federal rules restrict any use of the information to criminally investigate or prosecute any alcohol or drug abuse patient.[facility] HospitalIn the event this information is protected by the Federal Confidentiality of Alcohol and Drug Abuse Patient Records regulations: The Federal rules restrict any use of the information to criminally investigate or prosecute any alcohol or drug abuse patient.[facility] HospitalIn the event this information is protected by the Federal Confidentiality of Alcohol and Drug Abuse Patient Records regulations: The Federal rules restrict any use of the information to criminally investigate or prosecute any alcohol or drug abuse patient.[facility] HospitalIn the event this information is protected by the Federal Confidentiality of Alcohol and Drug Abuse Patient Records regulations: The Federal rules restrict any use of the information to criminally investigate or prosecute any alcohol or drug abuse patient.[facility] HospitalIn the event this information is protected by the Federal Confidentiality of Alcohol and Drug Abuse Patient Records regulations: The Federal rules restrict any use of the information to criminally investigate or prosecute any alcohol or drug abuse patient.[facility] HospitalIn the event this information is protected by the Federal Confidentiality of Alcohol and Drug Abuse Patient Records regulations: The Federal rules restrict any use of the information to criminally investigate or prosecute any alcohol or drug abuse patient.[facility] HospitalIn the event this information is protected by the Federal Confidentiality of Alcohol and Drug Abuse Patient Records regulations: The Federal rules restrict any use of the information to criminally investigate or prosecute any alcohol or drug abuse patient.[facility] HospitalIn the event this information is protected by the Federal Confidentiality of Alcohol and Drug Abuse Patient Records regulations: The Federal rules restrict any use of the information to criminally investigate or prosecute any alcohol or drug abuse patient.[facility] HospitalIn the event this information is protected by the Federal Confidentiality of Alcohol and Drug Abuse Patient Records regulations: The Federal rules restrict any use of the information to criminally investigate or prosecute any alcohol or drug abuse patient.[facility] HospitalIn the event this information is protected by the Federal Confidentiality of Alcohol and Drug Abuse Patient Records regulations: The Federal rules restrict any use of the information to criminally investigate or prosecute any alcohol or drug abuse patient.[facility] HospitalIn the event this information is protected by the Federal Confidentiality of Alcohol and Drug Abuse Patient Records regulations: The Federal rules restrict any use of the information to criminally investigate or prosecute any alcohol or drug abuse patient.[facility] HospitalIn the event this information is protected by the Federal Confidentiality of Alcohol and Drug Abuse Patient Records regulations: The Federal rules restrict any use of the information to criminally investigate or prosecute any alcohol or drug abuse patient.[facility] HospitalIn the event this information is protected by the Federal Confidentiality of Alcohol and Drug Abuse Patient Records regulations: The Federal rules restrict any use of the information to criminally investigate or prosecute any alcohol or drug abuse patient.[facility] HospitalIn the event this information is protected by the Federal Confidentiality of Alcohol and Drug Abuse Patient Records regulations: The Federal rules restrict any use of the information to criminally investigate or prosecute any alcohol or drug abuse patient.[facility] HospitalIn the event this information is protected by the Federal Confidentiality of Alcohol and Drug Abuse Patient Records regulations: The Federal rules restrict any use of the information to criminally investigate or prosecute any alcohol or drug abuse patient.[facility] HospitalIn the event this information is protected by the Federal Confidentiality of Alcohol and Drug Abuse Patient Records regulations: The Federal rules restrict any use of the information to criminally investigate or prosecute any alcohol or drug abuse patient.[facility] HospitalIn the event this information is protected by the Federal Confidentiality of Alcohol and Drug Abuse Patient Records regulations: The Federal rules restrict any use of the information to criminally investigate or prosecute any alcohol or drug abuse patient.[facility] HospitalIn the event this information is protected by the Federal Confidentiality of Alcohol and Drug Abuse Patient Records regulations: The Federal rules restrict any use of the information to criminally investigate or prosecute any alcohol or drug abuse patient.[facility] Reason for Visit (unrecogniz ed section and content) Reason Comments Refill Request Reason Comments Acute Visit wax in ears and ring ing Reason Comments Results Reason Comments Medication Request Reason Comments Viral Syndrome Reason Comments Acute Visit Stomach and nausea Reason Comments Abdominal Pain Pt reported intermit tent abd, bloating x5 days, denied urinary sxs, diarrhea. Reason Comments Follow Up For UC visit 03/27/22-abd ominal cramping/bloating x 2 weeks Reason Comments New Patient Pt reported decline short term memory loss x 2 yrs. Specialty Diagnoses / Procedures Referred By Contcorrina t Referred To Contact Neurology Diagnoses Memory loss Procedures CONSULT TO NEUROLOGY OFFICE/OUTPATIENT [facility] 60 MINUTES Cindy Lloyd, SUPERVISOR DIE CASTING.BLANKER OPERATOR [address] [place] [address] Referral ID Status Reason Start Date Expiration Date V isits Requested Visits Authorized [id number] Closed PCP Requested Referral 02/27/2023 02/27/2024 1 1 Reason Onset Date Comments Refill Request 04/21/2023 Reason Onset Date Comments Refill Request 04/22/2023 Reason Comments Appointment [facility] appt 08/11/23 -inappropriately scheduled. Reason Onset Date Comments Refill Request 08/11/2023 Reason Comments Allergic Reaction Possibly from sherice yao, patient says is a different pill than he normally receives, has been on for 10 years Reason Comments Acute Visit Shakines and fatique Reason Comments Results Labs Reason Comments Recheck Reason Comments Med Change Request Reason Onset Date Comments Refill Request 02/04/2024 Reason Onset Date Comments Refill Request 02/17/2024 Reason Onset Date Comments Refill Request 02/18/2024 Reason Comments Question Reason Comments Orders Reason Comments F/U 6 Month Reason Comments Appointment Called patient about scheduling consult to neurology, per referral. pt is already est. last seen in 2023, provided the number to the [place] office. called [phone] Care Teams (unrecognized sec tion and content) Dowel Maker Relationship Specialty Start Date End Date Adelita Marcano MD [address] [place], [place] [id number] PCP - General Family Practice 10/04/15 Dowel Maker Relationship Specialty Start Date End Date Adelita Marcano MD [address] [facility] [address] PCP - General Family Practice 10/04/15 Dowel Maker Relationship Specialty Start Date End Date Adelita Marcano MD [address] [place] [address] PCP - General Family Practice 10/04/15 Dowel Maker Relationship Specialty Start Date End Date Adelita Marcano MD [address] [place] [address] PCP - General Family Medicine 10/04/15 Dowel Maker Relationship Specialty Start Date End Date Adelita Marcano MD [address] [place] [address] PCP - General Family Medicine 10/04/15 Dowel Maker Relationship Specialty Start Date End Date Adelita Marcano MD [address] [place] [address] PCP - General Family Medicine 10/04/15 Dowel Maker Relationship Specialty Start Date End Date Adelita Marcano MD [address] [place] [address] PCP - General Family Medicine 10/04/15 Team Status: Active Member Role Status Dates Dr. Adelita Marcano MD Family Provider Active Dr. Adelita Marcano MD Primary Care Provider Active Team Status: Inactive Member Role Status Dates Dr. Adelita Marcano MD Primary Care Provider Active Colleen Lema LABEL SEWER, LABEL SEWER-C Attending Provider, Referring Provi anaya Active Dowel Maker Relationship Specialty Start Date End Date Adelita Marcano MD [address] [place] [address] PCP - General Family Medicine 10/04/15 Dowel Maker Relationship Specialty Start Date End Date Adelita Marcano MD [address] [place] [address] PCP - General Family Medicine 10/04/15 Dowel Maker Relationship Specialty Start Date End Date Adelita Marcano MD [address] [place] [address] PCP - General Family Medicine 10/04/15 Dowel Maker Relationship Specialty Start Date End Date Adelita Marcano MD [address] [place] [address] PCP - General Family Medicine 10/04/15 Dowel Maker Relationship Specialty Start Date End Date Adelita Marcano MD [address] [place] [address] PCP - General Family Medicine 10/04/15 Dowel Maker Relationship Specialty Start Date End Date Adelita Marcano MD [address] [place] [address] PCP - General Family Medicine 10/04/15 Dowel Maker Relationship Specialty Start Date End Date Adelita Marcano MD [address] [place] [address] PCP - General Family Medicine 10/04/15 Dowel Maker Relationship Specialty Start Date End Date Adelita Marcano MD [address] [place] [address] PCP - General Family Medicine 10/04/15 Dowel Maker Relationship Specialty Start Date End Date Adelita Marcano MD [address] [place] [address] PCP - General Family Medicine 10/04/15 Laurie Esteves APRN.BLANKER OPERATOR [address] [place] [address] Platform Attendant Family Medicine 01/17/24 Dowel Maker Relationship Specialty Start Date End Date Adelita Marcano MD [address] [place] [address] PCP - General Family Medicine 10/04/15 Laurie Esteves APRN.BLANKER OPERATOR [address] [place] [address] Platform Attendant Family Medicine 01/17/24 Tristen Brown APRN.BLANKER OPERATOR [address] [place] [address] [facility] 01/26/24 Dowel Maker Relationship Specialty Start Date End Date Adelita Marcano MD [address] [place] [address] PCP - General Family Medicine 10/04/15 Laurie Esteves APRN.BLANKER OPERATOR [address] [place] [address] Platform Attendant Family Medicine 01/17/24 Tristen Brown APRN.BLANKER OPERATOR [address] [place] [address] Platform Attendant Family Medicine 01/26/24 Dowel Maker Relationship Specialty Start Date End Date Adelita Marcano MD [address] [place] [address] PCP - General Family Medicine 10/04/15 Laurie Esteves APRN.BLANKER OPERATOR [address] [place] [address] Platform Attendant Family Medicine 01/17/24 Tristen Brown APRN.BLANKER OPERATOR [address] [place] [address] Platform Attendant Family Medicine 01/26/24 Dowel Maker Relationship Specialty Start Date End Date Adelita Marcano MD [address] [place] [address] PCP - General Family Medicine 10/04/15 Laurie Esteves APRN.BLANKER OPERATOR [address] [place] [address] Platform Attendant Family Medicine 01/17/24 Tristen Brown APRN.BLANKER OPERATOR [address] [place] [address] Platform Attendant Family Medicine 01/26/24 Dowel Maker Relationship Specialty Start Date End Date Adelita Marcano MD [address] [place] [address] PCP - General Family Medicine 10/04/15 Laurie Esteves APRN.BLANKER OPERATOR [address] [place] [address] Platform Attendant Family Medicine 01/17/24 Tristen Brown APRN.BLANKER OPERATOR [address] [place] [address] Platform Attendant Family Medicine 01/26/24 Dowel Maker Relationship Specialty Start Date End Date Adelita Marcano MD [address] [place] [address] PCP - General [facility] 10/04/15 Laurie Esteves APRN.BLANKER OPERATOR [address], [place] [address] [facility] 01/17/24 Tristen Brown APRN.BLANKER OPERATOR [address] [place], [place] [address] [facility] 01/26/24 Dowel Maker Relationship Specialty Start Date End Date Adelita Marcano MD [address] [place], [place] [address] PCP - [facility] 10/04/15 Laurie Esteves APRN.BLANKER OPERATOR [address] [place] [address] [facility] 01/17/24 Tristen Brown APRN.BLANKER OPERATOR [address] [place], [place] [id number] [facility] 01/26/24 Goals (unrecognized section and content) Goals may be documented in a n alternate sectionGoals may be documented in an alternate section (unrecognized sect ion and content) No Status Records FoundNo Status Records Found INFORMATION SOURCE (unrecogn ized section and content) DATE CREATED AUTHOR 04/06/2022 [facility] DATE CREATED AUTHOR AUTHOR'S ORGANIZ ATION 05/23/2024 [facility] FOR RECORDS PERTAINING TO PATIENTS WHO ARE OR HAVE BEEN ENROLLED IN A CHEMICAL DEPENDENCY/SUBSTANCEABUSE PROGRAM, SOME INFORMATION MAY BE OMITTED. This clinical summary was aggregated from multiple sources. Caution should be exercised in using it in the provision of clinical care. This summary normalizes information from multiple sources, and as a consequence, information in this document may materially change the coding, format and clinical context of patient data. In addition, data may be omitted in some cases. CLINICAL DECISIONS SHOULD BE BASED ON THE PRIMARY CLINICAL RECORDS. [facility]. provides no warranty or guarantee of the accuracy or completeness of information in this document.
[2024-07-16] MEDS: predniSONE 10 MG Tablet PO (20:11)
[2024-07-16 20:12] VITALS: BP 133/99; PULSE 51; RESP 18; TEMP 36.7; O2SAT 95
== END 2024-07-16 20:17 | disposition home or self-care (01) ==
PROVIDERS: Emergency Provider Emergency Medicine; PCP Family Medicine; Visit Provider Emergency Medicine
DX: Z76.0 Encounter for issue of repeat prescription (principal); Z79.52 Long term (current) use of systemic steroids; Z87.891 Personal history of nicotine dependence
CPT/HCPCS: 99282